=== PATIENT | female | born 1980 | race African-American/Black ===

== ENCOUNTER 2017-06-19 22:44 | Emergency (ER) | payer OTHER, MEDICAID ==
[~2017-06-19] VITALS: Ht 160 cm; Wt 59.0 kg
[2017-06-19 22:50] VITALS: BP 150/89
[2017-06-19 23:13] LABS: BASOPHILS % (AUTO) 1.2 % (0.0-2.0); EOSINOPHILS % (AUTO) 0.6 % (0.0-3.0); HEMATOCRIT 34.2 % (37.0-47.0); HEMOGLOBIN 11.4 G/DL (12.0-16.0); LYMPHOCYTES % (AUTO) 27.5 % (20.0-45.0); MEAN CORPUSCULAR VOLUME 75 FL (80-99); MONOCYTES % (AUTO) 6.9 % (1.0-10.0); NEUTROPHILS % (AUTO) 63.8 % (45.0-75.0); PLATELET COUNT 288 K/UL (150-450); RED BLOOD COUNT 4.58 M/UL (4.20-5.40); WHITE BLOOD COUNT 5.7 K/UL (4.8-10.8)
[2017-06-19] MEDS ORDERED: LORazepam Inj 2mg/ml 1ml IV ONE (23:15)
[2017-06-19 23:25] LABS: ANION GAP 5 mmol/L (5-15); BLOOD UREA NITROGEN 11 mg/dL (7-18); CALCIUM 8.5 MG/DL (8.5-10.1); CARBON DIOXIDE 26 MMOL/L (21-32); CHLORIDE 105 MMOL/L (98-107); CREATININE 1.1 MG/DL (0.55-1.30); POTASSIUM 3.7 MMOL/L (3.5-5.1); SODIUM 136 MMOL/L (136-145)
[2017-06-19 23:30] LABS: ALANINE AMINOTRANSFERASE 24 U/L (12-78); ALBUMIN 3.3 G/DL (3.4-5.0); ALBUMIN/GLOBULIN RATIO 0.8 (1.0-2.7); ALKALINE PHOSPHATASE 72 U/L (46-116); ASPARTATE AMINO TRANSFERASE 18 U/L (15-37); BILIRUBIN,TOTAL 0.2 MG/DL (0.2-1.0)
[2017-06-20] VITALS: BP 138/87
[2017-06-20 00:11] VITALS: BP 138/87
--- NOTE | 2017-06-20 00:18 | Emergency Room Report ---
History of Present Illness General Chief Complaint: Seizure Source: Patient, EMS Present Illness HPI 36-year-old female presents ED for evaluation. Patient is in police custody. Here for long term clearance. Had a witnessed seizure in long term. Last for several seconds. No reported head injury. Upon arrival patient is crying. Not answering questions. [employer] states patient has a history of substance abuse. Unclear whether patient has seizure history. No other aggravating relieving factors. No other associated symptoms Allergies: Coded Allergies: UNABLE TO ASSESS (Unverified , 06/19/17) not answering questions Patient History Past Medical History: none Past Surgical History: none Pertinent Family History: none Social History: Denies: smoking, alcohol use, drug use Last Menstrual Period: unknown Now: No Immunizations: UTD Reviewed Nursing Documentation: PMH: Agreed; PSxH: Agreed Nursing Documentation-PMH Past Medical History Deferred: Pt Cognitively Impaired Review of Systems All Other Systems: limited Physical Exam Vital Signs Date Time Temp Pulse Resp B/P (MAP) Pulse Ox O2 Delivery O2 Flow Rate FiO2 06/19/17 22:45 98.8 110 20 156/90 98 Room Air 98.8 Sp02 EP Interpretation: reviewed, normal General Appearance: no apparent distress, alert, GCS 15, non-toxic Head: normocephalic, atraumatic Eyes: bilateral eye normal inspection, bilateral eye PERRL ENT: hearing grossly normal, normal pharynx, no angioedema, normal voice Neck: full range of motion, supple/symm/no masses Respiratory: chest non-tender, lungs clear, normal breath sounds, speaking full sentences Cardiovascular #1: regular rate, rhythm, no edema Cardiovascular #2: 2+ carotid (R), 2+ carotid (L), 2+ radial (R), 2+ radial (L) , 2+ dorsalis pedis (R), 2+ dorsalis pedis (L) Gastrointestinal: normal bowel sounds, non tender, soft, non-distended, no guarding, no rebound Rectal: deferred Genitourinary: normal inspection, no CVA tenderness Musculoskeletal: back normal, gait/station normal, normal range of motion, non- tender Neurologic: alert, responsive, motor strength/tone normal, sensory intact, other - crying Psychiatric: anxious Reflexes: 3+ bicep (R), 3+ bicep (L), 3+ tricep (R), 3+ tricep (L), 3+ knee (R) , 3+ knee (L) Skin: normal color, no rash, warm/dry, well hydrated Lymphatic: no adenopathy Medical Decision Making Diagnostic Impression: Primary Impression: Medical clearance for incarceration Additional Impression: Seizure ER Course Hospital Course 36-year-old F presents to ED status post seizure.in police custody Differential diagnosis includes- breakthrough seizure, alcohol abuse, noncompliance with medication Clinical course Patient placed on stretcher. Initial history and physical I ordered labs, IV fluids, ativan Labs-electrolytes okay, no leukocytosis, hemoglobin/hematocrit stable. etoh <3. Patient observed for some time in ED. Stable vitals. No seizure activity. Patient initially crying and very anxious proved after Ativan. Patient still not answering questions regarding seizure history. Reviewed EMR. Patient was reportedly here for seizure activity last year however patient left without being seen Patient is stable for long term clearance Diagnosis - seizure, medical clearance for incarceration stable and discharged to police custody. Followup with PMD. Return to ED if symptoms recur or worsen Labs Test 06/19/17 22:55 White Blood Count 5.7 K/UL (4.8-10.8) Red Blood Count 4.58 M/UL (4.20-5.40) Hemoglobin 11.4 G/DL (12.0-16.0) Hematocrit 34.2 % (37.0-47.0) Mean Corpuscular Volume 75 FL (80-99) Mean Corpuscular Hemoglobin 24.9 PG (27.0-31.0) Mean Corpuscular Hemoglobin Concent 33.3 G/DL (32.0-36.0) Red Cell Distribution Width 15.0 % (11.6-14.8) Platelet Count 288 K/UL (150-450) Mean Platelet Volume 6.9 FL (6.5-10.1) Neutrophils (%) (Auto) 63.8 % (45.0-75.0) Lymphocytes (%) (Auto) 27.5 % (20.0-45.0) Monocytes (%) (Auto) 6.9 % (1.0-10.0) Eosinophils (%) (Auto) 0.6 % (0.0-3.0) Basophils (%) (Auto) 1.2 % (0.0-2.0) Sodium Level 136 MMOL/L (136-145) Potassium Level 3.7 MMOL/L (3.5-5.1) Chloride Level 105 MMOL/L (98-107) Carbon Dioxide Level 26 MMOL/L (21-32) Anion Gap 5 mmol/L (5-15) Blood Urea Nitrogen 11 mg/dL (7-18) Creatinine 1.1 MG/DL (0.55-1.30) Estimat Glomerular Filtration Rate > 60 mL/min (>60) Glucose Level 111 MG/DL (74-106) Calcium Level 8.5 MG/DL (8.5-10.1) Total Bilirubin 0.2 MG/DL (0.2-1.0) Aspartate Amino Transf (AST/SGOT) 18 U/L (15-37) Alanine Aminotransferase (ALT/SGPT) 24 U/L (12-78) Alkaline Phosphatase 72 U/L (46-116) Total Protein 7.7 G/DL (6.4-8.2) Albumin 3.3 G/DL (3.4-5.0) Globulin 4.4 g/dL Albumin/Globulin Ratio 0.8 (1.0-2.7) Salicylates Level 1.3 ug/mL (2.8-20) Acetaminophen Level < 2 MCG/ML (10-30) Carbamazepine (Tegretol) Level < 0.5 ug/mL (4.0-12.0) Phenobarbital Level < 1.0 ug/mL (15-40) Serum Alcohol < 3 mg/dL Last Vital Signs Date Time Temp Pulse Resp B/P (MAP) Pulse Ox O2 Delivery O2 Flow Rate FiO2 06/20/17 00:11 98.5 87 15 138/87 98 Room Air 98.5 Status: improved Disposition: D/C TO LAW ENFORCEMENT IN CUST Condition: Stable Departure Forms: [facility] Clearance Patient Instructions: Seizure, Adult Anibal Alicea MD Jun 20, 2017 00:18
--- NOTE | 2017-06-20 14:54 | Cardiology Report ---
APPROVED REPORT EKG Measurement Heart [id number] Sinus tachycardia Otherwise normal ECG
== END 2017-06-20 00:15 | disposition home or self-care (01) ==
LOC: EDBD 22:44 → EMR 22:55
DX: R56.9 Unspecified convulsions (principal)
CPT/HCPCS: 36415; 80053; 80156; 80184; 85025; 93005; 96361; 96374; 99284; G0480; 80329

== ENCOUNTER 2018-08-02 14:36 | Inpatient (IN) | payer MEDICAID, OTHER ==
[~2018-08-02] VITALS: Ht 162.6 cm; Wt 77.6 kg
[2018-08-02 14:40] VITALS: BP 105/70
--- NOTE | 2018-08-02 14:40 | NUR ---
ED Nurse Note: Pt brought in to ER by ambulance from [facility] due to severe back pain 10/10 radiates to posterior neck for last 4 days. pt is moaning and gramicing due to pain but aao x4. pt is bedbound due to pain. skin clean and intact. pt has head surgery and scar is covered with sponge type of dressing on Lt upper head. per pt, it should not be removed by anybody but surgeon. pt has mid line on Lt upper arm.
--- NOTE | 2018-08-02 14:45 | NUR ---
ED Nurse Note: pt reported that she has breast cancer stage 4.
--- NOTE | 2018-08-02 14:59 | Emergency Room Report ---
History of Present Illness General Chief Complaint: Chest Pain Source: Patient, Medical Record Present Illness HPI Patient is a 37-year-old female with prior history of metastatic breast cancer. Patient was noted to have previous been hospitalized in [facility]. 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 Patient had been recently been on high-dose IV narcotics while in the hospital. Patient was discharged yesterday. Patient is noted to have persistent pain since discharge. Patient apparently had been taking large doses of morphine as well as Dilaudid.Patient had reported having increased pain in her mid back. 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 She was noted to have prior right- sided weakness from brain tumor. Patient had prior history of invasive ductal carcinoma. Patient was sent in by Dr. Ordaz. Patient had previously been on Keppra for seizure prophylaxis Allergies: Coded Allergies: No Known Allergies (Unverified , 08/02/18) Patient History Past Medical History: see triage record Now: No Reviewed Nursing Documentation: PMH: Agreed; PSxH: Agreed Nursing Documentation-PMH Past Medical History: No History, Except For Hx Cancer: Yes - Breast, Intracranial Abcess, Granuloma History Of Psychiatric Problem: Yes - Bipolar, Anxiety Review of Systems All Other Systems: negative except mentioned in HPI Physical Exam Vital Signs Date Time Temp Pulse Resp B/P (MAP) Pulse Ox O2 Delivery O2 Flow Rate FiO2 08/02/18 14:38 99.1 94 20 98/70 (79) 96 Room Air General Appearance: alert, GCS 15, Chronically Ill Head: other - craniotomy site C/D/I ENT: hearing grossly normal Neck: limited range of motion Respiratory: chest non-tender, lungs clear Cardiovascular #1: normal inspection, regular rate, rhythm Gastrointestinal: normal inspection, non tender Genitourinary: normal inspection Neurologic: alert, oriented x3, responsive, motor weakness - right upper extremity 4/5, some tremor Medical Decision Making Diagnostic Impression: Primary Impression: Intractable back pain Additional Impression: Hx of breast cancer ER Course Patient presented for upper back pain. Differential diagnosis include was not limited to metastatic lesion to her back, pulmonary embolism, myocardial infarction, opiate withdrawal among others. Because of complexity of patient's case laboratory testing and imaging studies were ordered. Patient was noted to have some baseline right-sided weakness. Patient reports having taken her Keppra. Per patient report patient was on high-dose pain medications while at [facility].I suspect some of this patient's pain is related to medication withdrawal. Patient states she had prolonged hospitalization for several months. Patient's insurance company was unable to arrange a time of the transfer. Dr. Tawana Davila was contacted for inpatient management Labs Test 08/02/18 15:00 White Blood Count 6.0 K/UL (4.8-10.8) Red Blood Count 3.98 M/UL (4.20-5.40) Hemoglobin 10.6 G/DL (12.0-16.0) Hematocrit 32.6 % (37.0-47.0) Mean Corpuscular Volume 82 FL (80-99) Mean Corpuscular Hemoglobin 26.5 PG (27.0-31.0) Mean Corpuscular Hemoglobin Concent 32.4 G/DL (32.0-36.0) Red Cell Distribution Width 15.0 % (11.6-14.8) Platelet Count 351 K/UL (150-450) Mean Platelet Volume 4.9 FL (6.5-10.1) Neutrophils (%) (Auto) 60.2 % (45.0-75.0) Lymphocytes (%) (Auto) 27.5 % (20.0-45.0) Monocytes (%) (Auto) 9.2 % (1.0-10.0) Eosinophils (%) (Auto) 1.2 % (0.0-3.0) Basophils (%) (Auto) 2.0 % (0.0-2.0) D-Dimer 1.83 mg/L FEU (0.00-0.49) Urine HCG, Qualitative Negative (NEGATIVE) Sodium Level 138 MMOL/L (136-145) Potassium Level 4.1 MMOL/L (3.5-5.1) Chloride Level 103 MMOL/L (98-107) Carbon Dioxide Level 27 MMOL/L (21-32) Anion Gap 8 mmol/L (5-15) Blood Urea Nitrogen 9 mg/dL (7-18) Creatinine 0.8 MG/DL (0.55-1.30) Estimat Glomerular Filtration Rate > 60 mL/min (>60) Glucose Level 106 MG/DL (74-106) Calcium Level 8.9 MG/DL (8.5-10.1) Total Bilirubin 0.2 MG/DL (0.2-1.0) Aspartate Amino Transf (AST/SGOT) 21 U/L (15-37) Alanine Aminotransferase (ALT/SGPT) 34 U/L (12-78) Alkaline Phosphatase 166 U/L (46-116) Total Creatine Kinase 61 U/L (26-308) Creatine Kinase MB < 0.5 NG/ML (0.0-3.6) Creatine Kinase MB Relative Index 0.8 Troponin I 0.000 ng/mL (0.000-0.056) Pro-B-Type Natriuretic Peptide 113 pg/mL (0-125) Total Protein 8.0 G/DL (6.4-8.2) Albumin 3.1 G/DL (3.4-5.0) Globulin 4.9 g/dL Albumin/Globulin Ratio 0.6 (1.0-2.7) EKG Diagnostic Results Rate: normal Rhythm: NSR ST Segments: no acute changes Last Vital Signs Date Time Temp Pulse Resp B/P (MAP) Pulse Ox O2 Delivery O2 Flow Rate FiO2 08/02/18 14:38 99.1 94 20 98/70 (79) 96 Room Air Status: improved Disposition: HOME, SELF-CARE Condition: Stable Roby Garcia MD August 02, 2018 14:59
[2018-08-02] MEDS ORDERED: Morphine Sulfate 4mg/ml Inj (IV USE ONLY) IVP ONE (15:00)
[2018-08-02] MEDS ORDERED: DiphenhydrAMINE 50mg/ml Inj IVP ONE (15:00)
--- NOTE | 2018-08-02 15:06 | NUR ---
ED Nurse Note: unable to withdraw blood from Mid-line. used betterfly but mid line is able to flush with medications. per pt, it has been unable to use since at the [facility].
--- NOTE | 2018-08-02 15:20 | NUR ---
ED Nurse Note: x-ray done at bedside.
[2018-08-02 15:39] LABS: EOSINOPHILS % (AUTO) 1.2 % (0.0-3.0); HEMATOCRIT 32.6 % (37.0-47.0); HEMOGLOBIN 10.6 G/DL (12.0-16.0); LYMPHOCYTES % (AUTO) 27.5 % (20.0-45.0); MEAN CORPUSCULAR VOLUME 82 FL (80-99); MONOCYTES % (AUTO) 9.2 % (1.0-10.0); NEUTROPHILS % (AUTO) 60.2 % (45.0-75.0); PLATELET COUNT 351 K/UL (150-450); RED BLOOD COUNT 3.98 M/UL (4.20-5.40)
[2018-08-02 16:01] LABS: ANION GAP 8 mmol/L (5-15); BLOOD UREA NITROGEN 9 mg/dL (7-18); CALCIUM 8.9 MG/DL (8.5-10.1); CARBON DIOXIDE 27 MMOL/L (21-32); CHLORIDE 103 MMOL/L (98-107); CREATININE 0.8 MG/DL (0.55-1.30); POTASSIUM 4.1 MMOL/L (3.5-5.1); SODIUM 138 MMOL/L (136-145)
[2018-08-02 16:15] LABS: ALANINE AMINOTRANSFERASE 34 U/L (12-78); ALBUMIN 3.1 G/DL (3.4-5.0); ALBUMIN/GLOBULIN RATIO 0.6 (1.0-2.7); ALKALINE PHOSPHATASE 166 U/L (46-116); ASPARTATE AMINO TRANSFERASE 21 U/L (15-37); BILIRUBIN,TOTAL 0.2 MG/DL (0.2-1.0); CKMB < 0.5 NG/ML (0.0-3.6); CREATINE KINASE 61 U/L (26-308)
--- NOTE | 2018-08-02 16:38 | NUR ---
ED Nurse Note: per ERMD, pt is ok to eat and drink. pt was provided with sandwich and juice.
[2018-08-02 16:40] VITALS: BP 112/79
--- NOTE | 2018-08-02 16:58 | Diagnostic Imaging Report ---
Indication: Chest pain, shortness of breath Technique: One view of the chest Comparison: none Findings: The heart is upper limits normal in size. There is minimal left basilar atelectasis. The lungs and pleural spaces are clear otherwise. Impression: Minimal left basilar atelectasis. No acute process
[2018-08-02 18:34] VITALS: BP 97/71
--- NOTE | 2018-08-02 18:56 | NUR ---
ED Nurse Note: Attempted to give report. nurse is unavailable. will call back again.
--- NOTE | 2018-08-02 18:56 | NUR ---
ED Nurse Note: pt c/o pain on back 12/13. ERMD made aware.
--- NOTE | 2018-08-02 19:20 | NUR ---
HAND-OFF: Report given to TIMA Duncan. unable to give report due to nurse unavailable in [facility] unit at this moment. report needs to be givne and VITALY made aware of pain medication.
[2018-08-02] MEDS ORDERED: Morphine Sulfate 10mg/ml Inj IVP ONE (19:30)
[2018-08-02] MEDS ORDERED: MILK OF MA400 MG/51 ORAL ×2 (20:01→22:52)
[2018-08-02] MEDS ORDERED: POLYETHYLENE GL17 GM ORAL (20:01)
[2018-08-02] MEDS ORDERED: FLAGYL500 MG ORAL (20:01)
[2018-08-02] MEDS ORDERED: LOVENOX10 M4 SUBQ ×2 (20:01→22:52)
[2018-08-02] MEDS ORDERED: NYSTATIN100000 UN1 ORAL (20:01)
[2018-08-02] MEDS ORDERED: FENTANYL1 EACH TDERMAL (20:01)
[2018-08-02] MEDS ORDERED: KEPPRA500 M4 ORAL ×2 (20:01→22:52)
[2018-08-02] MEDS ORDERED: LORAZEPAM0.5 MG ORAL (20:01)
[2018-08-02] MEDS ORDERED: CHOLECALCIFEROL1 G1 MC (20:01)
[2018-08-02] MEDS ORDERED: BISACODYL5 MG ORAL (20:01)
[2018-08-02] MEDS ORDERED: KLONOPIN0.5 MG ORAL (20:01)
[2018-08-02] MEDS ORDERED: VANCOMYCIN1 GM IV (20:01)
[2018-08-02] MEDS ORDERED: ZOLPIDEM TARTRAT5 MG ORAL (20:01)
--- NOTE | 2018-08-02 20:30 | NUR ---
NURSE NOTES: ADMITTED 37 YEAR OLD FEMALE TO ROOM 420 BED 2 VIA GURNEY FROM EMERGENCY DEPARTMENT WITH DIAGNOSIS INTRACTABLE BACK PAIN/METASTATIC RIGHT BREAST CANCER, UNDER THE CARE OF DR. ALBRIGHT. ALERT/ORIENTED X4, ABLE TO EFFECTIVELY VERBALIZE NEEDS, MEDICATED IN ER WITH MORPHINE SULFATE 8MG AT 1931 INTRAVENOUSLY, PATIENT WITH CURRENT COMPLAINT OF PAIN 10/10 "ALL OVER". MIDLINE CATHETER TO LEFT UPPER EXTREMITY, PER PATIENT, DRESSING CHANGED 08/01/18, PLACED AT [facility] ON 07/25/18, UNABLE TO DRAW BLOOD, REFUSED PERIPHERAL LINE. ABDOMEN SOFT/NON DISTENDED, AUDIBLE BOWEL SOUNDS, NO N/V/D REPORTED. PATIENT HAD HEAD SURGERY AT [facility] 2 MONTHS AGO, NOTED WITH SPONGE PATCH ON MID SCALP. NOTED WITH RIGHT SIDE WEAKNESS, ENCOURAGED PATIENT TO UTILIZE CALL LIGHT FOR ASSISTANCE, VERBALIZED UNDERSTANDING. SIDE RAILS UP X3/BED IN LOWEST POSITION FOR SAFETY. CALL LIGHT WITHIN REACH. NAD.
[2018-08-02 21:00] VITALS: BP 103/72
--- NOTE | 2018-08-02 21:00 | NUR ---
NURSE NOTES: ON ROUNDS, PATIENT APPEAR TO BE ASLEEP, NO SIGNS AND SYMPTOMS OF DISTRESS.
[2018-08-02] MEDS ORDERED: ANASTROZOLE1 MG PO (21:26)
[2018-08-02] MEDS ORDERED: TRUSOPT10 ML LEFT EYE (21:26)
[2018-08-02] MEDS ORDERED: VITAMIN D1000 UNI1 ORAL (21:26)
[2018-08-02] MEDS ORDERED: ACETAMINOPHEN500 M3 ORAL ×2 (21:26)
[2018-08-02] MEDS ORDERED: BISACODYL10 M1 RC (21:26)
[2018-08-02] MEDS ORDERED: VOLTAREN100 G1 TP (22:52)
[2018-08-02] MEDS ORDERED: METRONIDAZOLE500 MG ORAL (22:52)
[2018-08-02] MEDS ORDERED: MORPHINE 22 MG/1 ML IV (22:52)
[2018-08-02] MEDS ORDERED: FENTANYL1 EAC2 TDERMAL (22:52)
[2018-08-02] MEDS ORDERED: HYDROMORPHO2 MG/1 M5 PO (22:52)
[2018-08-02] MEDS ORDERED: LUPRON DEPOT3.75 M1 IM (22:52)
[2018-08-02] MEDS ORDERED: Zolpidem 5mg tab ORAL PRN (23:30)
[2018-08-02] MEDS ORDERED: Miralax 17gm pkt ORAL PRN (23:30)
[2018-08-02] MEDS ORDERED: metroNIDAZOLE 500mg tab ORAL PRN (23:30)
[2018-08-02] MEDS ORDERED: Acetaminophen 500mg (ES) tab ORAL PRN (23:30)
[2018-08-02] MEDS ORDERED: ZOLEDRONIC4 MG/100 M IV (23:46)
[2018-08-02] MEDS ORDERED: PROTONIX40 MG ORAL (23:46)
[2018-08-02] MEDS ORDERED: VANCOMYCIN IV (23:46)
[2018-08-03] VITALS: BP 104/71
[2018-08-03] MEDS ORDERED: Morphine Sulfate 4mg/ml Inj (IV USE ONLY) IVP SCH
[2018-08-03] MEDS ORDERED: Morphine Sulfate 4mg/ml Inj (IV USE ONLY) IVP PRN (00:30)
[2018-08-03] MEDS ORDERED: HYDROmorphone 2mg tab ORAL PRN (00:45)
[2018-08-03] MEDS: clonazePAM 0.5mg tab ORAL SCH ×4 (00:55→17:34)
[2018-08-03] MEDS ORDERED: Acetaminophen 500mg (ES) tab ORAL SCH (01:00)
[2018-08-03] MEDS ORDERED: Acetaminophen 500mg (ES) tab ORAL PRN (01:00)
[2018-08-03] MEDS: HYDROmorphone 2mg tab ORAL PRN ×3 (01:21→08:22)
--- NOTE | 2018-08-03 01:48 | NUR ---
NURSE NOTES: PATIENT AWAKE, CRYING, PAIN 10/10, INFORMED PATIENT THAT DILAUDID 6MG PO WAS AVAILABLE, PATIENT VERBALIZED UNDERSTANDING; PACKAGE OPENED IN ROOM, PATIENT REFUSED MEDICATION ONCE OPENED, CHARGE NURSE NOTIFIED, MEDICATION "UNDONE AND WASTED" - CHARGE NURSE ADM. MORPHINE SULFATE 4MG IV VIA MID LINE CATHETER, FLUSHED FOR PATENCY. PATIENT INSISTING ON 8 MG IV MS, TELEPHONE CALL PLACED TO DR. MONTES/PAIN MANAGEMENT, LEFT MESSAGE ON EMERGENCY VOICE MAIL, WILL AWAIT RETURN CALL. NAD. PATIENT MADE AWARE.
--- NOTE | 2018-08-03 02:15 | NUR ---
NURSE NOTES: FOLLOW UP CALL PLACED TO DR. MONTES REGARDING PAIN INTERVENTION , PATIENT WOULD BENEFIT FROM USABILITY ENGINEER, LEFT MESSAGE ON EMERGENCY LINE, WILL AWAIT RETURN CALL.
[2018-08-03 04:00] VITALS: BP 115/79
[2018-08-03] MEDS: Morphine Sulfate 4mg/ml Inj (IV USE ONLY) IVP PRN ×4 (04:27→09:42)
--- NOTE | 2018-08-03 05:00 | NUR ---
NURSE NOTES: LOBO CISNEROS,BROOM MACHINE OPERATOR, GAVE ORDER TO GIVE ONE TIME DOSE OF MORPHINE SULFATE 2MG NOW; PER LOBO, DOSE NOT TO INTERFERE WITH MS 6MG PRN DOSE, CHARGE NURSE MADE AWARE.
[2018-08-03] MEDS ORDERED: Morphine Sulfate 2mg/ml Inj(IV/IM USE ONLY) IVP ONE (05:15)
[2018-08-03] MEDS ORDERED: Vancomycin 1 GM in D5W 275 ML IVPB SCH (06:00)
[2018-08-03] MEDS ORDERED: Vancomycin 1gm vial IVPB SCH (06:00)
--- NOTE | 2018-08-03 06:42 | Consultation ---
History of Present Illness General Date patient seen: August 02, 2018 Chief Complaint: Brain Mets Referring physician: Dr. Davila Present Illness HPI Shahana Lora is a 37-year-old female with prior history of metastatic breast cancer with bony and parenchymal brain metastases. 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 She was discharged yesterday but had been recently been on high-dose IV narcotics and experienced uncontrolled persistent pain since discharge.She had been requiring both high doses of morphine and dilaudid with a transition to a Fentanyl patch 75-100mcg for her pain. 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 Additionally, she has prior right-sided weakness from brain tumor. Neurology has also been consulted to manage and assess her neurological deficits and cerebral edema related to her most recent surgical procedure. Allergies: Coded Allergies: No Known Allergies (Unverified , 08/02/18) Medication History Scheduled Acetaminophen* (Acetaminophen Extra Strength*), 500 MG ORAL Q4HR, (Reported) Anastrozole* (Arimidex*), 1 MG PO DAILY, (Reported) Bisacodyl (Bisacodyl), 10 MG RC DAILY, (Reported) Bisacodyl* (Dulcolax*), 20 MG ORAL ONCE, (Reported) Cholecalciferol (Vitamin D3)* (Vitamin D*), 2,000 UNITS ORAL DAILY, (Reported) Clonazepam* (Klonopin*), 0.5 MG ORAL Q6H, (Reported) Dorzolamide Hcl* (Trusopt*), 1 DROP LEFT EYE BID, (Reported) Enoxaparin* (Lovenox*), 40 MG SUBQ DAILY, (Reported) Enoxaparin* (Lovenox*), 40 MG SUBQ DAILY, (Reported) Fentanyl 25MCG Patch* (Fentanyl 25MCG Patch*), 1 PATCH TDERMAL EVERY 72 HOURS, ( Reported) Fentanyl 75MCG Patch* (Fentanyl 75MCG Patch*), 1 PATCH TDERMAL EVERY 72 HOURS, ( Reported) Hydromorphone Hcl/Pf (Hydromorphone 2 Mg/Ml Syringe*), 2 MG PO EVERY 2 HOURS, ( Reported) Leuprolide Acetate (Lupron Depot), 3.75 MG IM QMONTH, (Reported) Levetiracetam (Keppra), 500 MG ORAL EVERY 12 HOURS, (Reported) Levetiracetam (Keppra), 500 MG ORAL EVERY 12 HOURS, (Reported) Lorazepam* (Lorazepam*), 0.5 MG ORAL THREE TIMES A DAY, (Reported) Magnesium Hydroxide* (Milk Of Magnesia*), 30 ML ORAL DAILY, (Reported) Magnesium Hydroxide* (Milk Of Magnesia*), 30 ML ORAL BEDTIME, (Reported) Metronidazole* (Flagyl*), 500 MG ORAL EVERY 8 HOURS, (Reported) Morphine Sulfate* (Morphine Sulfate*), 4 MG IV EVERY 2 HOURS, (Reported) Nystatin* (Nystatin*), 5 ML ORAL FOUR TIMES A DAY, (Reported) Pantoprazole* (Protonix*), 20 MG ORAL DAILY, (Reported) Vancomycin HCl (Vancomycin HCl), 1.25 GM IV Q8HR, (Reported) Zoledronic Acid/Mannitol&Water (Zoledronic Acid 4 mg/100 ml), 4 MG IV MONTHLY, ( Reported) [Vancomycin], IV EVERY 8 HOURS, (Reported) Scheduled PRN Acetaminophen* (Acetaminophen Extra Strength*), 500 MG ORAL Q6H PRN for Mild Pain (Pain Scale 1-3), (Reported) Metronidazole* (Flagyl*), 500 MG ORAL EVERY 8 HOURS PRN for BRAIN INFECTION, ( Reported) Polyethylene Glycol 3350* (Polyethylene Glycol 3350*), 17 GM ORAL BEDTIME PRN for Constipation, (Reported) Zolpidem Tartrate* (Zolpidem Tartrate*), 5 MG ORAL BEDTIME PRN for Insomnia, ( Reported) Miscellaneous Medications Cholecalciferol (Vitamin D3) (Cholecalciferol), 1 GM MC, (Reported) Diclofenac Sodium (Voltaren), 100 GM TP, (Reported) Vancomycin Hcl (Vancomycin), 1 GM IV, (Reported) Patient History Healthcare decision maker KILO HERNÁNDEZ JENNIFER R Resuscitation status Do Not Resuscitate Advanced Directive on File N/A Review of Systems Constitutional: Reports: see HPI, malaise, weakness Eye: Reports: no symptoms; Denies: see HPI, eye pain, blurred vision, tearing, double vision, nose pain, nose congestion, acuity changes, discharge, other ENT: Denies: no symptoms, see HPI, ear pain, ear discharge, nose pain, nose congestion, throat pain, throat swelling, mouth pain, hearing loss, nasal discharge, other Respiratory: Denies: no symptoms, see HPI, cough, orthopnea, shortness of breath, stridor, wheezing, DOMÍNGUEZ, sputum, other Cardiovascular: Denies: no symptoms, see HPI, chest pain, edema, palpitations, syncope, PND, other Gastrointestinal: Denies: no symptoms, see HPI, abdominal pain, constipation, diarrhea, nausea, vomiting, melena, hematemesis, other Genitourinary: Denies: no symptoms, see HPI, discharge, dysuria, frequency, hematuria, pain, retention, incontinence, urgency, vag bleed/dc, other Musculoskeletal: Reports: joint pain Skin: Denies: no symptoms, see HPI, rash, change in color, change in hair/nails , dryness, lesions, other Psychiatric: Reports: depressed feelings Neurological: Reports: headache, focal weakness Endocrine: Denies: no symptoms, see HPI, excessive sweating, flushing, intolerance to temperature, increased thirst, increased urine, unexplained weight loss, other Hematologic/Lymphatic: Denies: no symptoms, see HPI, anemia, blood clots, easy bleeding, easy bruising, swollen glands, diathesis, other Physical Exam General Appearance: WD/WN, no apparent distress, alert, moderate distress, alert oriented x3 Lines, tubes and drains: peripheral HEENT: normocephalic - with right/midline craniotomy incision on top / parietal portion of head, anicteric, mucous membranes moist, PERRL, EOMI, pharynx normal, supple, no JVD Neck: normal alignment, supple, normal inspection Respiratory/Chest: normal breath sounds, no respiratory distress, no accessory muscle use Cardiovascular/Chest: normal rate, regular rhythm, no JVD Extremities: normal range of motion, non-tender, normal inspection, no calf tenderness, normal capillary refill, no edema, no cyanosis Skin Exam: normal pigmentation, warm/dry Neurologic: abnormal gait, alert, oriented x 3, responsive, abnormal CN, motor weakness, sensory deficit Musculoskeletal: normal muscle bulk, no effusion Physical Exam Narrative Young woman with pre-existing right sided deficit of lower face and arm. Left eye CN6 palsy , Right eye movements normal - deficits secondary to CN6 involvement of prior tumor resection Patient is ambulatory but reports unsteadiness upon ambulation. Last 24 Hour Vital Signs Date Time Temp Pulse Resp B/P (MAP) Pulse Ox O2 Delivery O2 Flow Rate FiO2 08/03/18 04:00 99.4 96 18 115/79 (91) 97 08/03/18 03:42 99.5 08/03/18 00:00 100.3 94 18 104/71 (82) 98 08/02/18 22:30 Room Air 08/02/18 21:00 99.5 94 18 103/72 (82) 99 08/02/18 20:08 93 21 97/63 98 Room Air 08/02/18 20:05 98.0 08/02/18 18:34 98.0 91 21 97/71 100 Room Air 08/02/18 16:40 98.7 78 17 112/79 98 Room Air 08/02/18 15:43 99.1 08/02/18 14:40 99.1 88 15 105/70 96 Room Air 08/02/18 14:40 97 15 Room Air 08/02/18 14:38 99.1 94 20 98/70 (79) 96 Room Air Intake and Output 08/02/18 08/03/18 18:59 06:59 Intake Total 50 ml 120 ml Output Total 600 ml Balance 50 ml -480 ml Intake Oral 50 ml 120 ml Output Urine Total 600 ml # Voids 1 3 Laboratory Tests Test 08/02/18 15:00 White Blood Count 6.0 K/UL (4.8-10.8) Red Blood Count 3.98 M/UL (4.20-5.40) L Hemoglobin 10.6 G/DL (12.0-16.0) L Hematocrit 32.6 % (37.0-47.0) L Mean Corpuscular Volume 82 FL (80-99) Mean Corpuscular Hemoglobin 26.5 PG (27.0-31.0) L Mean Corpuscular Hemoglobin Concent 32.4 G/DL (32.0-36.0) Red Cell Distribution Width 15.0 % (11.6-14.8) H Platelet Count 351 K/UL (150-450) Mean Platelet Volume 4.9 FL (6.5-10.1) L Neutrophils (%) (Auto) 60.2 % (45.0-75.0) Lymphocytes (%) (Auto) 27.5 % (20.0-45.0) Monocytes (%) (Auto) 9.2 % (1.0-10.0) Eosinophils (%) (Auto) 1.2 % (0.0-3.0) Basophils (%) (Auto) 2.0 % (0.0-2.0) D-Dimer 1.83 mg/L FEU (0.00-0.49) H Urine HCG, Qualitative Negative (NEGATIVE) Sodium Level 138 MMOL/L (136-145) Potassium Level 4.1 MMOL/L (3.5-5.1) Chloride Level 103 MMOL/L (98-107) Carbon Dioxide Level 27 MMOL/L (21-32) Anion Gap 8 mmol/L (5-15) Blood Urea Nitrogen 9 mg/dL (7-18) Creatinine 0.8 MG/DL (0.55-1.30) Estimat Glomerular Filtration Rate > 60 mL/min (>60) Glucose Level 106 MG/DL (74-106) Calcium Level 8.9 MG/DL (8.5-10.1) Total Bilirubin 0.2 MG/DL (0.2-1.0) Aspartate Amino Transf (AST/SGOT) 21 U/L (15-37) Alanine Aminotransferase (ALT/SGPT) 34 U/L (12-78) Alkaline Phosphatase 166 U/L (46-116) H Total Creatine Kinase 61 U/L (26-308) Creatine Kinase MB < 0.5 NG/ML (0.0-3.6) Creatine Kinase MB Relative Index 0.8 Troponin I 0.000 ng/mL (0.000-0.056) Pro-B-Type Natriuretic Peptide 113 pg/mL (0-125) Total Protein 8.0 G/DL (6.4-8.2) Albumin 3.1 G/DL (3.4-5.0) L Globulin 4.9 g/dL Albumin/Globulin Ratio 0.6 (1.0-2.7) L Height (Feet): 5 Height (Inches): 4.00 Weight (Pounds): 158 Medications Current Medications Medications (Trade) Dose Ordered Sig/Rahul Route PRN Reason Start Time Stop Time Status Last Admin Dose Admin Acetaminophen (Tylenol) 500 mg Q4HR PRN ORAL TEMPERATURE GREATER THAN 100.4 08/03/18 01:00 09/02/18 00:59 Acetaminophen (Tylenol) 500 mg Q6H PRN ORAL Mild Pain (Pain Scale 1-3) 08/02/18 23:30 09/01/18 23:29 Anastrozole (Arimidex) 1 mg DAILY ORAL 08/03/18 09:00 09/02/18 08:59 Bisacodyl (Dulcolax) 10 mg DAILY RECTAL 08/03/18 09:00 09/02/18 08:59 Bisacodyl (Dulcolax) 15 mg DAILY ORAL 08/03/18 09:00 09/02/18 08:59 Clonazepam (KlonoPIN) 0.5 mg Q6H ORAL 08/03/18 00:00 08/10/18 00:00 08/03/18 06:11 Dorzolamide HCl (Trusopt) 1 drop BID LEFT EYE 08/03/18 09:00 09/02/18 08:59 Enoxaparin Sodium (Lovenox) 40 mg DAILY SUBQ 08/03/18 09:00 09/02/18 08:59 Fentanyl (Duragesic) 1 patch EVERY 72 HOURS TDERMAL 08/02/18 23:30 08/09/18 23:29 UNV Hydromorphone HCl (Dilaudid) 6 mg Q2H PRN ORAL Severe Pain (Pain Scale 7-10) 08/03/18 01:15 08/10/18 00:44 08/03/18 03:12 Levetiracetam (Keppra) 500 mg EVERY 12 HOURS ORAL 08/03/18 09:00 09/02/18 08:59 Lorazepam (Ativan) 0.5 mg THREE TIMES A DAY ORAL 08/03/18 09:00 08/10/18 08:59 Magnesium Hydroxide (Mom) 30 ml BEDTIME ORAL 08/03/18 21:00 09/02/18 20:59 Metronidazole (Flagyl) 500 mg EVERY 8 HOURS PRN ORAL BRAIN INFECTION 08/02/18 23:30 08/09/18 23:29 Morphine Sulfate (Morphine Sulfate) 6 mg Q2H PRN IVP breakthrough pain 08/03/18 02:30 08/10/18 00:29 08/03/18 04:27 Nystatin (Nystatin) 5 ml FOUR TIMES A DAY ORAL 08/03/18 09:00 08/10/18 08:59 Pantoprazole (Protonix) 20 mg DAILY ORAL 08/03/18 09:00 09/02/18 08:59 UNV Polyethylene Glycol (Miralax) 17 gm BEDTIME PRN ORAL Constipation 08/02/18 23:30 09/01/18 23:29 Vancomycin HCl 1 gm/Dextrose 275 ml @ 184 mls/hr Q8H IVPB 08/03/18 06:00 08/08/18 05:59 Vitamin D (Vitamin D) 2,000 intlu DAILY ORAL 08/03/18 09:00 09/02/18 08:59 Zolpidem Tartrate (Ambien) 5 mg BEDTIME PRN ORAL Insomnia 08/02/18 23:30 08/09/18 23:29 Assessment/Plan Problem List: (1) Vision loss, right eye ICD Codes: H54.61 - Unqualified visual loss, right eye, normal vision left eye SNOMED: 11354150 (2) Muscle right arm weakness ICD Codes: M62.81 - Muscle weakness (generalized) SNOMED: 953171997 (3) Seizure prophylaxis Assessment & Plan: Continue home dosage of Keppra at this time. Patient denies ever having had a seizure. ICD Codes: Z29.8 - Encounter for other specified prophylactic measures SNOMED: 763519656, 576937470 (4) Brain metastasis ICD Codes: C79.31 - Secondary malignant neoplasm of brain SNOMED: 76807981 (5) Bony metastasis ICD Codes: C79.51 - Secondary malignant neoplasm of bone SNOMED: 44971637 (6) Metastatic breast cancer ICD Codes: C50.919 - Malignant neoplasm of unspecified site of unspecified female breast SNOMED: 226834472, 755503542 (7) Seizure ICD Codes: R56.9 - Unspecified convulsions SNOMED: 93557748, 13448048, 013762967 (8) Hx of breast cancer ICD Codes: Z85.3 - Personal history of malignant neoplasm of breast SNOMED: 017132356 (9) Intractable back pain Assessment & Plan: Recommend going back to Fentanyl 100mcg patch as previously on with IV dilaudid Q3 Recommend MRI T/L Spine, Right Hip imaging - query kenny mets MRI Brain w/ w/o contrast for Brain Mets, assessment of edema, mets, or abscess recurrence. ICD Codes: M54.9 - Dorsalgia, unspecified SNOMED: 729541979 Assessment/Plan: Was previously on Dexamethasone for cerebral edema following craniotomy recently This should be continued - Recommend 2mg BID Dex if no other orders Check MRI Brain Check T Spine, L Spine , R hip for BONY METS Indira Gonzalez N.P. August 03, 2018 06:42
[2018-08-03 07:11] LABS: BASOPHILS % (AUTO) 1.9 % (0.0-2.0); EOSINOPHILS % (AUTO) 0.9 % (0.0-3.0); HEMATOCRIT 32.2 % (37.0-47.0); HEMOGLOBIN 10.3 G/DL (12.0-16.0); LYMPHOCYTES % (AUTO) 25.5 % (20.0-45.0); MEAN CORPUSCULAR VOLUME 83 FL (80-99); MONOCYTES % (AUTO) 7.2 % (1.0-10.0); NEUTROPHILS % (AUTO) 64.4 % (45.0-75.0); PLATELET COUNT 368 K/UL (150-450); RED BLOOD COUNT 3.88 M/UL (4.20-5.40); RED CELL DISTRIBUTION WIDTH 15.4 % (11.6-14.8); WHITE BLOOD COUNT 4.5 K/UL (4.8-10.8)
--- NOTE | 2018-08-03 07:30 | NUR ---
NURSE NOTES: RN received pt in stable condition, eating breakfast in bed. No acute distress or SOB. Bed in low, locked position, call light within reach. Plan of care is pain management. Will continue to monitor.
--- NOTE | 2018-08-03 07:30 | NUR ---
HAND-OFF: Report given to TIMA GOLDBERG.
[2018-08-03 07:31] LABS: ALANINE AMINOTRANSFERASE 30 U/L (12-78); ALBUMIN 2.6 G/DL (3.4-5.0); ALBUMIN/GLOBULIN RATIO 0.6 (1.0-2.7); ALKALINE PHOSPHATASE 137 U/L (46-116); ANION GAP 8 mmol/L (5-15); ASPARTATE AMINO TRANSFERASE 18 U/L (15-37); BILIRUBIN,TOTAL < 0.1 MG/DL (0.2-1.0); BLOOD UREA NITROGEN 13 mg/dL (7-18); CALCIUM 8.5 MG/DL (8.5-10.1); CARBON DIOXIDE 26 MMOL/L (21-32); CHLORIDE 104 MMOL/L (98-107); CREATININE 0.7 MG/DL (0.55-1.30); POTASSIUM 3.8 MMOL/L (3.5-5.1); SODIUM 138 MMOL/L (136-145)
[2018-08-03 08:00] VITALS: BP 111/72
[2018-08-03] MEDS: Anastrazole 1mg tab ORAL SCH (08:21)
[2018-08-03] MEDS: Vitamin D 1000 IU Tab ORAL SCH (08:21)
[2018-08-03] MEDS: Bisacodyl EC 5mg tab ORAL SCH (08:21)
[2018-08-03] MEDS: Nystatin Susp 500,000 units/5ml ORAL SCH ×4 (08:22→22:16)
[2018-08-03] MEDS: Enoxaparin 40mg Inj SUBQ SCH (08:23)
[2018-08-03] MEDS: LORazepam 0.5mg tab ORAL SCH ×3 (08:28→17:53)
--- NOTE | 2018-08-03 09:00 | NUR ---
NURSE NOTES: RN received pt with mid-line; pt states was placed at [facility] on 07/25, dressing change on 08/01.
--- NOTE | 2018-08-03 09:05 | Consultation ---
History of Present Illness General Date patient seen: August 03, 2018 Chief Complaint: Present Illness Allergies: Coded Allergies: No Known Allergies (Unverified , 08/02/18) Medication History Scheduled Acetaminophen* (Acetaminophen Extra Strength*), 500 MG ORAL Q4HR, (Reported) Anastrozole* (Arimidex*), 1 MG PO DAILY, (Reported) Bisacodyl (Bisacodyl), 10 MG RC DAILY, (Reported) Bisacodyl* (Dulcolax*), 20 MG ORAL ONCE, (Reported) Cholecalciferol (Vitamin D3)* (Vitamin D*), 2,000 UNITS ORAL DAILY, (Reported) Clonazepam* (Klonopin*), 0.5 MG ORAL Q6H, (Reported) Dorzolamide Hcl* (Trusopt*), 1 DROP LEFT EYE BID, (Reported) Enoxaparin* (Lovenox*), 40 MG SUBQ DAILY, (Reported) Enoxaparin* (Lovenox*), 40 MG SUBQ DAILY, (Reported) Fentanyl 25MCG Patch* (Fentanyl 25MCG Patch*), 1 PATCH TDERMAL EVERY 72 HOURS, ( Reported) Fentanyl 75MCG Patch* (Fentanyl 75MCG Patch*), 1 PATCH TDERMAL EVERY 72 HOURS, ( Reported) Hydromorphone Hcl/Pf (Hydromorphone 2 Mg/Ml Syringe*), 2 MG PO EVERY 2 HOURS, ( Reported) Leuprolide Acetate (Lupron Depot), 3.75 MG IM QMONTH, (Reported) Levetiracetam (Keppra), 500 MG ORAL EVERY 12 HOURS, (Reported) Levetiracetam (Keppra), 500 MG ORAL EVERY 12 HOURS, (Reported) Lorazepam* (Lorazepam*), 0.5 MG ORAL THREE TIMES A DAY, (Reported) Magnesium Hydroxide* (Milk Of Magnesia*), 30 ML ORAL DAILY, (Reported) Magnesium Hydroxide* (Milk Of Magnesia*), 30 ML ORAL BEDTIME, (Reported) Metronidazole* (Flagyl*), 500 MG ORAL EVERY 8 HOURS, (Reported) Morphine Sulfate* (Morphine Sulfate*), 4 MG IV EVERY 2 HOURS, (Reported) Nystatin* (Nystatin*), 5 ML ORAL FOUR TIMES A DAY, (Reported) Pantoprazole* (Protonix*), 20 MG ORAL DAILY, (Reported) Zoledronic Acid/Mannitol&Water (Zoledronic Acid 4 mg/100 ml), 4 MG IV MONTHLY, ( Reported) [Vancomycin], IV EVERY 8 HOURS, (Reported) Scheduled PRN Acetaminophen* (Acetaminophen Extra Strength*), 500 MG ORAL Q6H PRN for Mild Pain (Pain Scale 1-3), (Reported) Metronidazole* (Flagyl*), 500 MG ORAL EVERY 8 HOURS PRN for BRAIN INFECTION, ( Reported) Polyethylene Glycol 3350* (Polyethylene Glycol 3350*), 17 GM ORAL BEDTIME PRN for Constipation, (Reported) Zolpidem Tartrate* (Zolpidem Tartrate*), 5 MG ORAL BEDTIME PRN for Insomnia, ( Reported) Miscellaneous Medications Cholecalciferol (Vitamin D3) (Cholecalciferol), 1 GM MC, (Reported) Diclofenac Sodium (Voltaren), 100 GM TP, (Reported) Vancomycin Hcl (Vancomycin), 1 GM IV, (Reported) Patient History Healthcare decision maker EDGAR, CARLOS BOATENG Resuscitation status Do Not Resuscitate Advanced Directive on File N/A Physical Exam Last 24 Hour Vital Signs Date Time Temp Pulse Resp B/P (MAP) Pulse Ox O2 Delivery O2 Flow Rate FiO2 08/03/18 08:00 98.4 100 18 111/72 (85) 98 08/03/18 07:43 99.4 08/03/18 04:57 99.4 08/03/18 04:00 99.4 96 18 115/79 (91) 97 08/03/18 03:42 99.5 08/03/18 00:00 100.3 94 18 104/71 (82) 98 08/02/18 22:30 Room Air 08/02/18 21:00 99.5 94 18 103/72 (82) 99 08/02/18 20:08 93 21 97/63 98 Room Air 08/02/18 20:05 98.0 08/02/18 18:34 98.0 91 21 97/71 100 Room Air 08/02/18 16:40 98.7 78 17 112/79 98 Room Air 08/02/18 15:43 99.1 08/02/18 14:40 99.1 88 15 105/70 96 Room Air 08/02/18 14:40 97 15 Room Air 08/02/18 14:38 99.1 94 20 98/70 (79) 96 Room Air Intake and Output 08/02/18 08/03/18 19:00 07:00 Intake Total 50 ml 120 ml Output Total 600 ml Balance 50 ml -480 ml Intake Oral 50 ml 120 ml Output Urine Total 600 ml # Voids 1 3 Laboratory Tests Test 08/02/18 15:00 08/03/18 06:42 White Blood Count 6.0 K/UL (4.8-10.8) 4.5 K/UL (4.8-10.8) L Red Blood Count 3.98 M/UL (4.20-5.40) L 3.88 M/UL (4.20-5.40) L Hemoglobin 10.6 G/DL (12.0-16.0) L 10.3 G/DL (12.0-16.0) L Hematocrit 32.6 % (37.0-47.0) L 32.2 % (37.0-47.0) L Mean Corpuscular Volume 82 FL (80-99) 83 FL (80-99) Mean Corpuscular Hemoglobin 26.5 PG (27.0-31.0) L 26.4 PG (27.0-31.0) L Mean Corpuscular Hemoglobin Concent 32.4 G/DL (32.0-36.0) 31.9 G/DL (32.0-36.0) L Red Cell Distribution Width 15.0 % (11.6-14.8) H 15.4 % (11.6-14.8) H Platelet Count 351 K/UL (150-450) 368 K/UL (150-450) Mean Platelet Volume 4.9 FL (6.5-10.1) L 5.3 FL (6.5-10.1) L Neutrophils (%) (Auto) 60.2 % (45.0-75.0) 64.4 % (45.0-75.0) Lymphocytes (%) (Auto) 27.5 % (20.0-45.0) 25.5 % (20.0-45.0) Monocytes (%) (Auto) 9.2 % (1.0-10.0) 7.2 % (1.0-10.0) Eosinophils (%) (Auto) 1.2 % (0.0-3.0) 0.9 % (0.0-3.0) Basophils (%) (Auto) 2.0 % (0.0-2.0) 1.9 % (0.0-2.0) D-Dimer 1.83 mg/L FEU (0.00-0.49) H Urine HCG, Qualitative Negative (NEGATIVE) Sodium Level 138 MMOL/L (136-145) 138 MMOL/L (136-145) Potassium Level 4.1 MMOL/L (3.5-5.1) 3.8 MMOL/L (3.5-5.1) Chloride Level 103 MMOL/L (98-107) 104 MMOL/L (98-107) Carbon Dioxide Level 27 MMOL/L (21-32) 26 MMOL/L (21-32) Anion Gap 8 mmol/L (5-15) 8 mmol/L (5-15) Blood Urea Nitrogen 9 mg/dL (7-18) 13 mg/dL (7-18) Creatinine 0.8 MG/DL (0.55-1.30) 0.7 MG/DL (0.55-1.30) Estimat Glomerular Filtration Rate > 60 mL/min (>60) > 60 mL/min (>60) Glucose Level 106 MG/DL (74-106) 127 MG/DL (74-106) H Calcium Level 8.9 MG/DL (8.5-10.1) 8.5 MG/DL (8.5-10.1) Total Bilirubin 0.2 MG/DL (0.2-1.0) < 0.1 MG/DL (0.2-1.0) L Aspartate Amino Transf (AST/SGOT) 21 U/L (15-37) 18 U/L (15-37) Alanine Aminotransferase (ALT/SGPT) 34 U/L (12-78) 30 U/L (12-78) Alkaline Phosphatase 166 U/L (46-116) H 137 U/L (46-116) H Total Creatine Kinase 61 U/L (26-308) Creatine Kinase MB < 0.5 NG/ML (0.0-3.6) Creatine Kinase MB Relative Index 0.8 Troponin I 0.000 ng/mL (0.000-0.056) Pro-B-Type Natriuretic Peptide 113 pg/mL (0-125) Total Protein 8.0 G/DL (6.4-8.2) 7.0 G/DL (6.4-8.2) Albumin 3.1 G/DL (3.4-5.0) L 2.6 G/DL (3.4-5.0) L Globulin 4.9 g/dL 4.4 g/dL Albumin/Globulin Ratio 0.6 (1.0-2.7) L 0.6 (1.0-2.7) L Microbiology Date/Time Source Procedure Growth Status 08/02/18 19:00 Rectum Received Height (Feet): 5 Height (Inches): 4.00 Weight (Pounds): 158 Medications Current Medications Medications (Trade) Dose Ordered Sig/Rahul Route PRN Reason Start Time Stop Time Status Last Admin Dose Admin Acetaminophen (Tylenol) 500 mg Q4HR PRN ORAL TEMPERATURE GREATER THAN 100.4 08/03/18 01:00 09/02/18 00:59 Acetaminophen (Tylenol) 500 mg Q6H PRN ORAL Mild Pain (Pain Scale 1-3) 08/02/18 23:30 09/01/18 23:29 Anastrozole (Arimidex) 1 mg DAILY ORAL 08/03/18 09:00 09/02/18 08:59 08/03/18 08:21 Bisacodyl (Dulcolax) 10 mg DAILY RECTAL 08/03/18 09:00 09/02/18 08:59 Bisacodyl (Dulcolax) 15 mg DAILY ORAL 08/03/18 09:00 09/02/18 08:59 08/03/18 08:21 Clonazepam (KlonoPIN) 0.5 mg Q6H ORAL 08/03/18 00:00 08/10/18 00:00 08/03/18 06:11 Dorzolamide HCl (Trusopt) 1 drop BID LEFT EYE 08/03/18 09:00 09/02/18 08:59 Enoxaparin Sodium (Lovenox) 40 mg DAILY SUBQ 08/03/18 09:00 09/02/18 08:59 08/03/18 08:23 Fentanyl (Duragesic) 1 patch EVERY 72 HOURS TDERMAL 08/02/18 23:30 08/09/18 23:29 UNV Hydromorphone HCl (Dilaudid) 6 mg Q2H PRN ORAL Severe Pain (Pain Scale 7-10) 08/03/18 01:15 08/10/18 00:44 08/03/18 08:22 Levetiracetam (Keppra) 500 mg EVERY 12 HOURS ORAL 08/03/18 09:00 09/02/18 08:59 08/03/18 08:22 Lorazepam (Ativan) 0.5 mg THREE TIMES A DAY ORAL 08/03/18 09:00 08/10/18 08:59 Magnesium Hydroxide (Mom) 30 ml BEDTIME ORAL 08/03/18 21:00 09/02/18 20:59 Metronidazole (Flagyl) 500 mg Q8HR ORAL 08/03/18 14:00 08/15/18 13:59 Morphine Sulfate (Morphine Sulfate) 6 mg Q2H PRN IVP breakthrough pain 08/03/18 02:30 08/10/18 00:29 08/03/18 07:13 Nystatin (Nystatin) 5 ml FOUR TIMES A DAY ORAL 08/03/18 09:00 08/10/18 08:59 08/03/18 08:22 Pantoprazole (Protonix) 20 mg DAILY ORAL 08/03/18 09:00 09/02/18 08:59 UNV Polyethylene Glycol (Miralax) 17 gm BEDTIME PRN ORAL Constipation 08/02/18 23:30 09/01/18 23:29 Vancomycin HCl 1 gm/Dextrose 275 ml @ 184 mls/hr Q8H IVPB 08/03/18 06:00 08/08/18 05:59 08/03/18 06:40 Vitamin D (Vitamin D) 2,000 intlu DAILY ORAL 08/03/18 09:00 09/02/18 08:59 08/03/18 08:21 Zolpidem Tartrate (Ambien) 5 mg BEDTIME PRN ORAL Insomnia 08/02/18 23:30 08/09/18 23:29 Assessment/Plan Assessment/Plan: (1) Metastatic breast cancer to bone (2) Intractable pain Seen dictated Ernesto Avila August 03, 2018 09:05
[2018-08-03] MEDS: Dorzolamide 2% 10ml Btl LEFT EYE SCH ×2 (09:40→17:35)
[2018-08-03] MEDS ORDERED: Naloxone 0.4mg/ml Inj IVP PRN (09:45)
[2018-08-03] MEDS: Lyrica 75mg cap ORAL SCH ×3 (09:45→17:34)
--- NOTE | 2018-08-03 09:57 | NUR ---
NURSE NOTES: RN administered Morphine per order / before order change. Pt pain managed. RN held Lyrica 9:45 AM dose. RN held Dilauded 9:45 AM dose. Will continue new prescriptions as ordered.
[2018-08-03 12:00] VITALS: BP 105/71
--- NOTE | 2018-08-03 12:07 | NUR ---
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 METASTIC BREAST CANCER VS: BP 97/63, P 94, T 99.1, RR 21, SpO2 96 WBC 4.5, RBC 3.88, H&H 10.3/32.2 IS:KLONOPIN 1mg MORPHINE SULFATE 2mg VANCOMYCIN 275ml IVPB ADMITTED TO MED/SURG DCP:RETURN TO [facility] DCP: RETURN TO [facility]
--- NOTE | 2018-08-03 12:28 | Consultation ---
History of Present Illness General Date patient seen: August 03, 2018 Chief Complaint: Chest Pain Present Illness Allergies: Coded Allergies: No Known Allergies (Unverified , 08/02/18) Medication History Scheduled Acetaminophen* (Acetaminophen Extra Strength*), 500 MG ORAL Q4HR, (Reported) Anastrozole* (Arimidex*), 1 MG PO DAILY, (Reported) Bisacodyl (Bisacodyl), 10 MG RC DAILY, (Reported) Bisacodyl* (Dulcolax*), 20 MG ORAL ONCE, (Reported) Cholecalciferol (Vitamin D3)* (Vitamin D*), 2,000 UNITS ORAL DAILY, (Reported) Clonazepam* (Klonopin*), 0.5 MG ORAL Q6H, (Reported) Dorzolamide Hcl* (Trusopt*), 1 DROP LEFT EYE BID, (Reported) Enoxaparin* (Lovenox*), 40 MG SUBQ DAILY, (Reported) Enoxaparin* (Lovenox*), 40 MG SUBQ DAILY, (Reported) Fentanyl 25MCG Patch* (Fentanyl 25MCG Patch*), 1 PATCH TDERMAL EVERY 72 HOURS, ( Reported) Fentanyl 75MCG Patch* (Fentanyl 75MCG Patch*), 1 PATCH TDERMAL EVERY 72 HOURS, ( Reported) Hydromorphone Hcl/Pf (Hydromorphone 2 Mg/Ml Syringe*), 2 MG PO EVERY 2 HOURS, ( Reported) Leuprolide Acetate (Lupron Depot), 3.75 MG IM QMONTH, (Reported) Levetiracetam (Keppra), 500 MG ORAL EVERY 12 HOURS, (Reported) Levetiracetam (Keppra), 500 MG ORAL EVERY 12 HOURS, (Reported) Lorazepam* (Lorazepam*), 0.5 MG ORAL THREE TIMES A DAY, (Reported) Magnesium Hydroxide* (Milk Of Magnesia*), 30 ML ORAL DAILY, (Reported) Magnesium Hydroxide* (Milk Of Magnesia*), 30 ML ORAL BEDTIME, (Reported) Metronidazole* (Flagyl*), 500 MG ORAL EVERY 8 HOURS, (Reported) Morphine Sulfate* (Morphine Sulfate*), 4 MG IV EVERY 2 HOURS, (Reported) Nystatin* (Nystatin*), 5 ML ORAL FOUR TIMES A DAY, (Reported) Pantoprazole* (Protonix*), 20 MG ORAL DAILY, (Reported) Zoledronic Acid/Mannitol&Water (Zoledronic Acid 4 mg/100 ml), 4 MG IV MONTHLY, ( Reported) [Vancomycin], IV EVERY 8 HOURS, (Reported) Scheduled PRN Acetaminophen* (Acetaminophen Extra Strength*), 500 MG ORAL Q6H PRN for Mild Pain (Pain Scale 1-3), (Reported) Metronidazole* (Flagyl*), 500 MG ORAL EVERY 8 HOURS PRN for BRAIN INFECTION, ( Reported) Polyethylene Glycol 3350* (Polyethylene Glycol 3350*), 17 GM ORAL BEDTIME PRN for Constipation, (Reported) Zolpidem Tartrate* (Zolpidem Tartrate*), 5 MG ORAL BEDTIME PRN for Insomnia, ( Reported) Miscellaneous Medications Cholecalciferol (Vitamin D3) (Cholecalciferol), 1 GM MC, (Reported) Diclofenac Sodium (Voltaren), 100 GM TP, (Reported) Vancomycin Hcl (Vancomycin), 1 GM IV, (Reported) Patient History Healthcare decision maker EDGAR, CARLOS BOATENG Resuscitation status Do Not Resuscitate Advanced Directive on File N/A Physical Exam Last 24 Hour Vital Signs Date Time Temp Pulse Resp B/P (MAP) Pulse Ox O2 Delivery O2 Flow Rate FiO2 08/03/18 09:00 Room Air 08/03/18 08:52 99.4 08/03/18 08:52 99.4 08/03/18 08:00 98.4 100 18 111/72 (85) 98 08/03/18 04:57 99.4 08/03/18 04:00 99.4 96 18 115/79 (91) 97 08/03/18 00:00 100.3 94 18 104/71 (82) 98 08/02/18 22:30 Room Air 08/02/18 21:00 99.5 94 18 103/72 (82) 99 08/02/18 20:08 93 21 97/63 98 Room Air 08/02/18 20:05 98.0 08/02/18 18:34 98.0 91 21 97/71 100 Room Air 08/02/18 16:40 98.7 78 17 112/79 98 Room Air 08/02/18 15:43 99.1 08/02/18 14:40 99.1 88 15 105/70 96 Room Air 08/02/18 14:40 97 15 Room Air 08/02/18 14:38 99.1 94 20 98/70 (79) 96 Room Air Intake and Output 08/02/18 08/03/18 19:00 07:00 Intake Total 50 ml 120 ml Output Total 600 ml Balance 50 ml -480 ml Intake Oral 50 ml 120 ml Output Urine Total 600 ml # Voids 1 3 Laboratory Tests Test 08/02/18 15:00 08/03/18 06:42 White Blood Count 6.0 K/UL (4.8-10.8) 4.5 K/UL (4.8-10.8) L Red Blood Count 3.98 M/UL (4.20-5.40) L 3.88 M/UL (4.20-5.40) L Hemoglobin 10.6 G/DL (12.0-16.0) L 10.3 G/DL (12.0-16.0) L Hematocrit 32.6 % (37.0-47.0) L 32.2 % (37.0-47.0) L Mean Corpuscular Volume 82 FL (80-99) 83 FL (80-99) Mean Corpuscular Hemoglobin 26.5 PG (27.0-31.0) L 26.4 PG (27.0-31.0) L Mean Corpuscular Hemoglobin Concent 32.4 G/DL (32.0-36.0) 31.9 G/DL (32.0-36.0) L Red Cell Distribution Width 15.0 % (11.6-14.8) H 15.4 % (11.6-14.8) H Platelet Count 351 K/UL (150-450) 368 K/UL (150-450) Mean Platelet Volume 4.9 FL (6.5-10.1) L 5.3 FL (6.5-10.1) L Neutrophils (%) (Auto) 60.2 % (45.0-75.0) 64.4 % (45.0-75.0) Lymphocytes (%) (Auto) 27.5 % (20.0-45.0) 25.5 % (20.0-45.0) Monocytes (%) (Auto) 9.2 % (1.0-10.0) 7.2 % (1.0-10.0) Eosinophils (%) (Auto) 1.2 % (0.0-3.0) 0.9 % (0.0-3.0) Basophils (%) (Auto) 2.0 % (0.0-2.0) 1.9 % (0.0-2.0) D-Dimer 1.83 mg/L FEU (0.00-0.49) H Urine HCG, Qualitative Negative (NEGATIVE) Sodium Level 138 MMOL/L (136-145) 138 MMOL/L (136-145) Potassium Level 4.1 MMOL/L (3.5-5.1) 3.8 MMOL/L (3.5-5.1) Chloride Level 103 MMOL/L (98-107) 104 MMOL/L (98-107) Carbon Dioxide Level 27 MMOL/L (21-32) 26 MMOL/L (21-32) Anion Gap 8 mmol/L (5-15) 8 mmol/L (5-15) Blood Urea Nitrogen 9 mg/dL (7-18) 13 mg/dL (7-18) Creatinine 0.8 MG/DL (0.55-1.30) 0.7 MG/DL (0.55-1.30) Estimat Glomerular Filtration Rate > 60 mL/min (>60) > 60 mL/min (>60) Glucose Level 106 MG/DL (74-106) 127 MG/DL (74-106) H Calcium Level 8.9 MG/DL (8.5-10.1) 8.5 MG/DL (8.5-10.1) Total Bilirubin 0.2 MG/DL (0.2-1.0) < 0.1 MG/DL (0.2-1.0) L Aspartate Amino Transf (AST/SGOT) 21 U/L (15-37) 18 U/L (15-37) Alanine Aminotransferase (ALT/SGPT) 34 U/L (12-78) 30 U/L (12-78) Alkaline Phosphatase 166 U/L (46-116) H 137 U/L (46-116) H Total Creatine Kinase 61 U/L (26-308) Creatine Kinase MB < 0.5 NG/ML (0.0-3.6) Creatine Kinase MB Relative Index 0.8 Troponin I 0.000 ng/mL (0.000-0.056) Pro-B-Type Natriuretic Peptide 113 pg/mL (0-125) Total Protein 8.0 G/DL (6.4-8.2) 7.0 G/DL (6.4-8.2) Albumin 3.1 G/DL (3.4-5.0) L 2.6 G/DL (3.4-5.0) L Globulin 4.9 g/dL 4.4 g/dL Albumin/Globulin Ratio 0.6 (1.0-2.7) L 0.6 (1.0-2.7) L Microbiology Date/Time Source Procedure Growth Status 08/02/18 19:00 Rectum Received Height (Feet): 5 Height (Inches): 4.00 Weight (Pounds): 158 Medications Current Medications Medications (Trade) Dose Ordered Sig/Rahul Route PRN Reason Start Time Stop Time Status Last Admin Dose Admin Acetaminophen (Tylenol) 500 mg Q4HR PRN ORAL TEMPERATURE GREATER THAN 100.4 08/03/18 01:00 09/02/18 00:59 Acetaminophen (Tylenol) 500 mg Q6H PRN ORAL Mild Pain (Pain Scale 1-3) 08/02/18 23:30 09/01/18 23:29 Anastrozole (Arimidex) 1 mg DAILY ORAL 08/03/18 09:00 09/02/18 08:59 08/03/18 08:21 Bisacodyl (Dulcolax) 10 mg DAILY RECTAL 08/03/18 09:00 09/02/18 08:59 Bisacodyl (Dulcolax) 15 mg DAILY ORAL 08/03/18 09:00 09/02/18 08:59 08/03/18 08:21 Clonazepam (KlonoPIN) 0.5 mg Q6H ORAL 08/03/18 00:00 08/10/18 00:00 08/03/18 06:11 Dorzolamide HCl (Trusopt) 1 drop BID LEFT EYE 08/03/18 09:00 09/02/18 08:59 08/03/18 09:40 Enoxaparin Sodium (Lovenox) 40 mg DAILY SUBQ 08/03/18 09:00 09/02/18 08:59 08/03/18 08:23 Hydromorphone HCl (Dilaudid) 2 mg Q3H PRN IVP Severe Pain (Pain Scale 7-10) 08/03/18 09:45 08/10/18 09:44 Levetiracetam (Keppra) 500 mg EVERY 12 HOURS ORAL 08/03/18 09:00 09/02/18 08:59 08/03/18 08:22 Lorazepam (Ativan) 0.5 mg THREE TIMES A DAY ORAL 08/03/18 09:00 08/10/18 08:59 Magnesium Hydroxide (Mom) 30 ml BEDTIME ORAL 08/03/18 21:00 09/02/18 20:59 Methadone HCl (Methadone HCl) 10 mg Q6HR ORAL 08/03/18 12:00 08/10/18 09:44 Metronidazole (Flagyl) 500 mg Q8HR ORAL 08/03/18 14:00 08/15/18 13:59 Naloxegol (Movantik) 25 mg DAILY ORAL 08/04/18 09:00 09/03/18 08:59 Naloxone HCl (Narcan) 0.2 mg Q2M PRN IVP respritory distress (RR<12) 08/03/18 09:45 09/02/18 09:44 Nystatin (Nystatin) 5 ml FOUR TIMES A DAY ORAL 08/03/18 09:00 08/10/18 08:59 08/03/18 08:22 Pantoprazole (Protonix) 20 mg DAILY ORAL 08/03/18 09:00 09/02/18 08:59 UNV Polyethylene Glycol (Miralax) 17 gm BEDTIME PRN ORAL Constipation 08/02/18 23:30 09/01/18 23:29 Pregabalin (Lyrica) 75 mg THREE TIMES A DAY ORAL 08/03/18 09:45 09/02/18 09:44 Vancomycin HCl 750 mg/Dextrose 275 ml @ 183.333 mls/hr Q12H IVPB 08/03/18 18:00 08/08/18 17:59 Vitamin D (Vitamin D) 2,000 intlu DAILY ORAL 08/03/18 09:00 09/02/18 08:59 08/03/18 08:21 Zolpidem Tartrate (Ambien) 5 mg BEDTIME PRN ORAL Insomnia 08/02/18 23:30 08/09/18 23:29 Assessment/Plan Assessment/Plan: HEMATOLOGY/ONCOLOGY CONSULTATION DATE OF CONSULT: 08/03/2018 REFERRING PHYSICIAN: Tawana Ordaz REASON FOR CONSULT: Leukopenia, anemia, r/o malignancy HISTORY OF PRESENT ILLNESS Patient is a 37-year-old female with prior history of metastatic breast cancer. Patient was noted to have previous been hospitalized in [facility]. 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 Patient had been recently been on high-dose IV narcotics while in the hospital. Patient was discharged yesterday. Patient is noted to have persistent pain since discharge. Patient apparently had been taking large doses of morphine as well as Dilaudid. Patient had reported having increased pain in her mid back. 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 She was noted to have prior right-sided weakness from brain tumor. Patient had prior history of invasive ductal carcinoma. CBC revealed a wbc of 4.5 and hgb of 10.3 Hematology/Oncology services have been consulted for the evaluation and management of malignant cancer, leukopenia, and anemia. Past Medical History: Breast cancer, Intracranial Abcess, Granuloma, bipolar, anxiety Past Surgical History: craniectomy Social History: Family History: Noncontributory Allergies: No Known Allergies ROS: Constitutional: No fever, no chills, no night sweats, no fatigue. BACK PAIN+ Skin: No rashes, lumps, itchiness, dryness HEENT: No SAAB, ear ache, visual changes, double vision, nosebleeds Breasts: No lumps, pain, discharge Pulmonary: No cough, sputum, shortness of breath, coughing up blood Cardiovascular: No chest pain, tightness, palpitations, syncope, PND GI: No nausea, vomiting, diarrhea, melena, hematochezia, change in appetite, : No dysuria, frequency, urgency, urinary incontinence, foamy urine Musculoskeletal: No joint swelling or muscle pain, trauma. BACK PAIN++ Neurologic: No dizziness, fainting, seizures, changes in smell or taste Psychiatric: No nervousness, stress, or depression, anxiety, hallucinations Endocrine: No weight change, heat or cold intolerance, tremor, insomnia PHYSICAL EXAM General Appearance: alert, GCS 15, Chronically Ill Head: other - craniotomy site C/D/I ENT: hearing grossly normal Neck: limited range of motion Respiratory: chest non-tender, lungs clear Cardiovascular #1: normal inspection, regular rate, rhythm Gastrointestinal: normal inspection, non tender Genitourinary: normal inspection Neurologic: alert, oriented x3, responsive, motor weakness - right upper extremity 4/5, some tremor IMAGIN08/02/18: CXR --> Minimal left basilar atelectasis LABS: 08/03: wbc 4.5 hgb 10.8 plt 368 ASSESSMENT AND PLAN # Metastatic breast cancer with visceral mets, to the spine as well as the brain , , in regards to her treatment, she was diagnosed approximately 3 months ago, has seen several doctors at [facility], has been initialy on ibrance and anastrozaole, the ibrance has since been discontinued, she is at this time only on anastrazole, and she has been getting lupron treatment once a month as well, she is also very likely BRCA ++ because she has 3 grandma siblings (3 great aunts) and also an aunt of her grandma who had all breast cancer at a young age , she has 2 young kids --> at this time, continue anastrazole 1mg po daily --> continue lupron once a month as well --> prognosis unfortunately is poor given brain mets --> neuro eval to see if disease is worse, to get mri of the brain and spine as well --> she is to see rad onc as an outpatient as well --> she is to see medical oncology as outpatient --> to get testing for BRCA as well given she has 2 young kids, has three great aunts with breast cancer as well as a grandmas aunt at a young age --> unfortunately prognosis is poor for this young lady # Decreased white blood cell count, unspec (aka leukopenia) - wbc under 4.5k, could be related to infection v splenomegaly v meds, could be due to chemo --> if the total ANC is less than 2000, may consider neupogen --> continue antibiotics with ID service, appreciate recs --> medications have been reviewed --> hepatitis and hiv have been ordered --> US of the abdomen ordered to r/o hsm/hypersplenomegaly and cirrhosis # Anemia of chronic disease (or of iron deficiency) due to underlying chronic medical issues, multifactorial --> Anemia workup has been ordered, rule out gi bleed --> No evidence of hemolysis is noted, peripheral smear has been reviewed. --> Hgb goal >7. Transfuse prn. --> Epogen or iron at this time is not particularly indicated --> Medications have been reviewed --> low threshold for gi evaluation in case has occult + --> bone marrow biopsy is not indicated given the other more likely causes # Vision Loss, Right eye # Seizure ppx. Continue home dosage of Keppra at this time. Patient denies ever having had a seizure. # Intractable back pain. The time note is entered does not reflect time patient was examined. GREATLY APPRECIATE CONSULTATION. Fred Zhang MD August 03, 2018 12:28
[2018-08-03] MEDS: metroNIDAZOLE 500mg tab ORAL SCH ×2 (14:03→22:16)
--- NOTE | 2018-08-03 14:24 | NUR ---
*-* INSURANCE *-* ALL CLINICALS AND REVIEWS HAVE BEEN FAXED: LEONOR MONAHAN P: [phone] F: [phone]
[2018-08-03 16:00] VITALS: BP 108/70
[2018-08-03] MEDS ORDERED: Gadavist 7.5mMol/7.5ml vial IV PRN (16:00)
[2018-08-03] MEDS: Vancomycin 750mg/D5W 275ml IVPB SCH ×2 (17:35)
[2018-08-03] MEDS ORDERED: Tubing IV Secondary IV ONE (18:17)
[2018-08-03] MEDS ORDERED: D5W 275ml ONE (18:17)
--- NOTE | 2018-08-03 18:23 | Diagnostic Imaging Report ---
History: MASS Exam: MR HEAD Without Contrast Comparison: None available FINDINGS: Left convexity lesion with irregular lobular peripheral enhancement measuring 2.6 x 1.8 x 2 cm, overlying smooth dural enhancement and calvarial defect, correlate with history. There appears to be associated susceptibility artifact consistent with blood products/hemorrhage. Associated moderate amount of vasogenic edema. 2-3 mm of localized left to right midline shift. No hydrocephalus. Major intracranial flow voids appear within limits. No other lesion or abnormal enhancement identified. No acute infarct. Cannot exclude ovoid osseous metastatic lesion at the right side of the clivus measuring around 9 mm image 6 series 7 and image 12 series 4. Mild left maxillary sinus mucosal thickening. Old right medial orbital wall fracture deformity. IMPRESSION: Left convexity lesion with irregular lobular peripheral enhancement measuring 2.6 x 1.8 x 2 cm, overlying smooth dural enhancement and calvarial defect, correlate with history. There appears to be associated susceptibility artifact consistent with blood products/hemorrhage. Associated moderate amount of vasogenic edema. 2-3 mm of localized left to right midline shift. No hydrocephalus. No other lesion or abnormal enhancement identified. No acute infarct.
--- NOTE | 2018-08-03 18:27 | Diagnostic Imaging Report ---
History: MASS Exam: XR RIGHT HIP 2 views Comparison: None available FINDINGS: No fracture or dislocation. 1 cm lucent focus inferior left pubic ramus and a couple of smaller foci suggested at the right inferior pubic ramus and ischial tuberosity. Possible subtle 1 cm lucent intertrochanteric lesion right femur. IMPRESSION: No fracture or dislocation. 1 cm lucent focus inferior left pubic ramus and a couple of smaller foci suggested at the right inferior pubic ramus and ischial tuberosity. Possible subtle 1 cm lucent intertrochanteric lesion right femur.
--- NOTE | 2018-08-03 18:28 | Diagnostic Imaging Report ---
History: MASS Exam: XR T SPINE 3 views Comparison: None available FINDINGS: No evidence of fracture or malalignment. The disc spaces appear within limits. No definite osseous lesion identified. IMPRESSION: Study appears within limits.
--- NOTE | 2018-08-03 18:33 | Diagnostic Imaging Report ---
History: MASS Exam: XR L SPINE 3 views Comparison: None available FINDINGS: No evidence of fracture or malalignment. The disc spaces appear within limits. No definite osseous lesion identified. IMPRESSION: Study appears within limits.
--- NOTE | 2018-08-03 19:16 | NUR ---
HAND-OFF: Report given to TIMA Welch.
[2018-08-03 20:00] VITALS: BP 139/84
[2018-08-03] MEDS: Milk of Magnesia 30ml Ud ORAL SCH (22:16)
[2018-08-04] VITALS: BP 127/85
--- NOTE | 2018-08-04 00:04 | Neurology Progress Note ---
Interim History Interim History ROS Limited/Unobtainable: No Complaints: Uncontrolled Pain/ Cerebral Edema Events: Pain improving Interim History This visit was conducted on August 04, [address] Rodríguez Flaherty. Review of Systems Neuro Review of Systems Improved pain, mood and mentation today. Objective Physical Exam Last Vital Signs Date Time Temp Pulse Resp B/P (MAP) Pulse Ox O2 Delivery O2 Flow Rate FiO2 08/03/18 19:23 99.4 08/03/18 16:00 101 18 108/70 (83) 97 08/03/18 09:00 Room Air Laboratory Tests Test 08/03/18 06:42 White Blood Count 4.5 K/UL (4.8-10.8) L Red Blood Count 3.88 M/UL (4.20-5.40) L Hemoglobin 10.3 G/DL (12.0-16.0) L Hematocrit 32.2 % (37.0-47.0) L Mean Corpuscular Volume 83 FL (80-99) Mean Corpuscular Hemoglobin 26.4 PG (27.0-31.0) L Mean Corpuscular Hemoglobin Concent 31.9 G/DL (32.0-36.0) L Red Cell Distribution Width 15.4 % (11.6-14.8) H Platelet Count 368 K/UL (150-450) Mean Platelet Volume 5.3 FL (6.5-10.1) L Neutrophils (%) (Auto) 64.4 % (45.0-75.0) Lymphocytes (%) (Auto) 25.5 % (20.0-45.0) Monocytes (%) (Auto) 7.2 % (1.0-10.0) Eosinophils (%) (Auto) 0.9 % (0.0-3.0) Basophils (%) (Auto) 1.9 % (0.0-2.0) Sodium Level 138 MMOL/L (136-145) Potassium Level 3.8 MMOL/L (3.5-5.1) Chloride Level 104 MMOL/L (98-107) Carbon Dioxide Level 26 MMOL/L (21-32) Anion Gap 8 mmol/L (5-15) Blood Urea Nitrogen 13 mg/dL (7-18) Creatinine 0.7 MG/DL (0.55-1.30) Estimat Glomerular Filtration Rate > 60 mL/min (>60) Glucose Level 127 MG/DL (74-106) H Calcium Level 8.5 MG/DL (8.5-10.1) Total Bilirubin < 0.1 MG/DL (0.2-1.0) L Aspartate Amino Transf (AST/SGOT) 18 U/L (15-37) Alanine Aminotransferase (ALT/SGPT) 30 U/L (12-78) Alkaline Phosphatase 137 U/L (46-116) H Total Protein 7.0 G/DL (6.4-8.2) Albumin 2.6 G/DL (3.4-5.0) L Globulin 4.4 g/dL Albumin/Globulin Ratio 0.6 (1.0-2.7) L Neurologic Exam Mental Status: other Speech: normal speech, other Cranial Nerve II: other Cranial Nerves III, IV, : PERRLA, other Cranial Nerve VII: other Cranial Nerve VIII: normal hearing, no nystagmus Cranial Nerve IX: normal palate elevation, gag response Cranial Nerve X: no voice hoarseness Cranial Nerve XI: SCM symmetric, trapezii function normal Cranial Nerve XII: tongue midline, no tongue atrophy/fasciculations Motor System: normal muscle tone, no muscle wasting, other Sensory: normal pinprick, normal light touch Coordination: other Imaging [facility] Medical Imaging [address] [place] [address] [phone], fax [phone] Dm Keller M.D. Product Safety Technician Patient : CARLOS BOATENG Referring Physician: Indira Gonzalez N.P. ID Number: [id number] Service Date: 08/03/18 : 1980 Report Date: 08/03/18 Gender: F Accession No.: [id number] Location: 4E Procedure: MRI Brain w/wo Contrast History: MASS Exam: MR HEAD Without Contrast Comparison: None available FINDINGS: Left convexity lesion with irregular lobular peripheral enhancement measuring 2.6 x 1.8 x 2 cm, overlying smooth dural enhancement and calvarial defect, correlate with history. There appears to be associated susceptibility artifact consistent with blood products/hemorrhage. Associated moderate amount of vasogenic edema. 2-3 mm of localized left to right midline shift. No hydrocephalus. Major intracranial flow voids appear within limits. No other lesion or abnormal enhancement identified. No acute infarct. Cannot exclude ovoid osseous metastatic lesion at the right side of the clivus measuring around 9 mm image 6 series 7 and image 12 series 4. Mild left maxillary sinus mucosal thickening. Old right medial orbital wall fracture deformity. IMPRESSION: Left convexity lesion with irregular lobular peripheral enhancement measuring 2.6 x 1.8 x 2 cm, overlying smooth dural enhancement and calvarial defect, correlate with history. There appears to be associated susceptibility artifact consistent with blood products/hemorrhage. Associated moderate amount of vasogenic edema. 2-3 mm of localized left to right midline shift. No hydrocephalus. No other lesion or abnormal enhancement identified. No acute infarct. Dictated By: Fermin Lara MD Electronically Signed By: Fermin Lara MD Signed Date/Time 08/03/181821 CC: Indira Gonzalez N.P.; Tawana Ordaz MD [facility] [employer] [address] [place], [place] [id number] , fax [phone] Dm Keller M.D. Product Safety Technician Patient : CARLOS BOATENG Referring Physician: Indira Gonzalez N.P. ID Number: [id number] Service Date: 08/03/18 : 1980 Report Date: 08/03/18 Gender: F Accession No.: [id number] Location: 4E Procedure: XRAY Hip Routine 2v+ w/Pelv- R History: MASS Exam: XR RIGHT HIP 2 views Comparison: None available FINDINGS: No fracture or dislocation. 1 cm lucent focus inferior left pubic ramus and a couple of smaller foci suggested at the right inferior pubic ramus and ischial tuberosity. Possible subtle 1 cm lucent intertrochanteric lesion right femur. IMPRESSION: No fracture or dislocation. 1 cm lucent focus inferior left pubic ramus and a couple of smaller foci suggested at the right inferior pubic ramus and ischial tuberosity. Possible subtle 1 cm lucent intertrochanteric lesion right femur. Dictated By: Fermin Lara MD Electronically Signed By: Fermin Lara MD Signed Date/Time 08/03/181825 CC: Indira Gonzalez N.P.; Tawana Ordaz MD [facility] Medical Imaging [address] [place], [place] [id number] , fax [phone] Dm Keller M.D. Product Safety Technician Patient : SHANEBAYCARLOS R Referring Physician: Indira Gonzalez N.P. ID Number: [id number] Service Date: 08/03/18 : 1980 Report Date: 08/03/18 Gender: F Accession No.: [id number] Location: 4E Procedure: XRAY L Spine Ltd History: MASS Exam: XR L SPINE 3 views Comparison: None available FINDINGS: No evidence of fracture or malalignment. The disc spaces appear within limits. No definite osseous lesion identified. IMPRESSION: Study appears within limits. Dictated By: Fermin Lara MD Electronically Signed By: Fermin Lara MD Signed Date/Time 08/03/18 183 CC: Indira Gonzalez N.P.; Tawana Ordaz MD [facility] Medical Imaging [facility] [place] [address] [phone], fax [phone] Dm eKller M.D. Product Safety Technician Patient : CARLOS BOATENG Referring Physician: Indira Gonzalez N.P. ID Number: [id number] Service Date: 08/03/18 : 1980 Report Date: 08/03/18 Gender: F Accession No.: [id number] Location: 4E Procedure: XRAY T Spine 2v History: MASS Exam: XR T SPINE 3 views Comparison: None available FINDINGS: No evidence of fracture or malalignment. The disc spaces appear within limits. No definite osseous lesion identified. IMPRESSION: Study appears within limits. Dictated By: Fermin Lara MD Electronically Signed By: Fermin Lara MD Signed Date/Time 08/03/18 117 CC: Indira Gonzalez N.P.; Tawana Ordaz MD Impression/Recommendations Problems: (1) Vision loss, right eye (2) Muscle right arm weakness (3) Seizure prophylaxis Assessment & Plan: Continue home dosage of Keppra at this time. Patient denies ever having had a seizure. (4) Brain metastasis (5) Bony metastasis (6) Metastatic breast cancer (7) Seizure (8) Hx of breast cancer Assessment & Plan: Xrays showing only hip mets, Xrays not revealing. Will order CT L/ T spine and consider MRI if helpful during hospitalization. (9) Intractable back pain Assessment & Plan: Recommend going back to Fentanyl 100mcg patch as previously on with IV dilaudid Q3 Recommend MRI T/L Spine, Right Hip imaging - query kenny mets MRI Brain w/ w/o contrast for Brain Mets, assessment of edema, mets, or abscess recurrence. Status: progressing, tolerating diet Recommendations Continue Q 4 Neuro obs Continue Seizure prophylaxis Continue to maintain Normoglycemia with ISS Continue pain management with goal of transition to Oral management. Will follow up on scans for assessment of Metastatic disease Indira Gonzalez N.P. Aug 04, 2018 00:04
--- NOTE | 2018-08-04 00:31 | Consultation ---
DATE OF CONSULTATION: 08/03/2018 PAIN MANAGEMENT CONSULTATION CONSULTING PHYSICIAN: Марина Choi M.D. REFERRING PHYSICIAN: Tawana Ordaz M.D. PHYSICIAN SOFTWARE QUALITY ANALYST: Froilan Tang CHIEF COMPLAINT: Back and chest pain. HISTORY OF PRESENT ILLNESS: This is a 37-year-old female who is being seen on the Med/Surg floor of [facility] for initial pain management consultation. The patient was admitted under the care of Dr. Ordaz, found to have metastatic breast cancer to the bone, reports that she was recently diagnosed in April, had been at [facility] and recently discharged to nursing facility; however, complaining of severe pain, taking fentanyl patches 100 mcg every 72 hours, Dilaudid 6 mg tablet every 4 hours and morphine 6 mg IV every 2 hours as needed for pain. However reports continued severe pain with minimal pain relief. At this time, she is being seen by a neurologist, reporting that she had a craniotomy due to infection in her brain. At this time, we were consulted so the patient would have adequate pain control while here in the hospital. PAST MEDICAL HISTORY: Breast cancer, bipolar disorder, anxiety. SOCIAL HISTORY: Denies smoking tobacco, drinking alcohol, or drug abuse. ALLERGIES: No known drug allergies. MEDICATIONS: Fentanyl, Dilaudid, Tylenol, Bystolic, Dulcolax, Klonopin, morphine, Keppra, lorazepam, Flagyl, nystatin, and Protonix. REVIEW OF SYSTEMS: Denies rash, fever, chills, sweating, dizziness, blurred vision, sore throat, or change in her weight. No shortness of breath or chest pain. No nausea, vomiting, diarrhea, blood in the stool or urine. No bowel or bladder incontinence. No dysuria. She is complaining of back pain and chest wall pain. PHYSICAL EXAMINATION: GENERAL: Alert, awake, oriented. VITAL SIGNS: Blood pressure 125/82 , heart rate is 100, oxygen saturation 98%, respiratory rate 18, temperature 98.4 degrees Fahrenheit. HEENT: PERRLA with craniotomy bandages noted. Tenderness to palpation. NECK: Range of motion is full in all directions. No tenderness to paracervical muscles. No adenopathy. LUNGS: Decreased breath sounds bilaterally. HEART: S1 and S2 regular. ABDOMEN: Soft and nontender. BACK: Range of motion is decreased in flexion and extension with tenderness to paraspinal muscles, trapezius and rhomboid muscles EXTREMITIES: Upper and lower extremity range of motion is decreased due to the patient's condition. No cyanosis. No clubbing. Sensory is reduced. Reflexes are unobtainable. No adenopathy. ASSESSMENT AND PLAN: This is a 37-year-old female with metastatic breast cancer to the bone, intractable pain. The patient will be discontinued off the fentanyl, morphine IV, and Dilaudid tablets. We will start the patient on methadone 10 mg tablet every 6 hours around the clock, hold for sedation. We will start the patient on Dilaudid 2 mg IV every 3 hours as needed for severe pain as well as Lyrica 75 mg three times a day. Narcan will be started and parameters will be set to hold opiates for oversedation or systolic blood pressure below 90 or diastolic blood pressure below 60, respiratory rate 12, oxygen saturation below 92%. The patient was discussed with Dr. Choi and Dr. Choi concurred. We will follow the patient. Thank you very much for the courtesy of this consultation. Марина Choi M.D. KARIME Tang DR: Elena JOB#: [id number] CC: [place]
[2018-08-04] MEDS: clonazePAM 0.5mg tab ORAL SCH ×5 (00:33→23:30)
[2018-08-04 04:00] VITALS: BP 111/72
[2018-08-04] MEDS: metroNIDAZOLE 500mg tab ORAL SCH ×3 (06:52→21:26)
--- NOTE | 2018-08-04 07:15 | NUR ---
VANCOMICIN AT 0600 DOSE NOT GIVEN DUE TO NO MEDICATION AVAILABLE. PHAMACY CALLED. OK TO WAIT UNTIL SEND THE MEDICATION ,ENDORCED TO DAY NURSE ROSAMARIA ALFRED
--- NOTE | 2018-08-04 07:45 | History and Physical Report ---
DATE OF ADMISSION: 08/02/2018 HISTORY OF PRESENT ILLNESS: The patient is admitted for intractable back pain. The patient has history of metastatic breast cancer. The patient's back pain was so bad. It was radiating to chest and the right hip, admitted for pain control. The patient was recently diagnosed in April 2018 with breast cancer metastasized to the bone. The patient has multiple craniotomies for brain abscess removal. The patient is also status post chemotherapy and radiation and is status post treatment for brain abscess . The patient denies shortness of breath. Denies cough. Denies nausea, vomiting, or diarrhea. Denies fever or chills. PAST MEDICAL HISTORY: Metastatic breast cancer, constipation. seizure prophylaxis, vision loss. History of chronic pain, anxiety, GERD. PAST SURGICAL HISTORY: Craniotomy, . SOCIAL HISTORY: History of smoking, history of drug abuse. No history of alcohol abuse. MEDICATIONS: Xanax, Keppra, Protonix, Bisacodyl, Arimidex, vitamin D3, and Klonopin. FAMILY HISTORY: Noncontributory. REVIEW OF SYSTEMS: HEENT: Denies headaches. RESPIRATORY: Denies shortness of breath. Denies cough. CARDIOVASCULAR: Denies chest pain. No orthopnea. GASTROINTESTINAL: Denies nausea, vomiting, or diarrhea. EXTREMITIES: Reports generalized pain. NEUROLOGIC: Significant change in speech pattern. Feels weak. PHYSICAL EXAMINATION: VITAL SIGNS: Temperature is 99.4, pulse is 92, blood pressure is 105/71. HEENT: PERRLA. NECK: Supple. No lymphadenopathy. CHEST: Clear to auscultation. showing chemotherapy and radiation. CARDIOVASCULAR: Regular rate and rhythm. No murmurs or extra sounds. GASTROINTESTINAL: Soft, nontender, and nondistended. No organomegaly. EXTREMITIES: No edema. Moves all four extremities. Reflexes equal in both sides. LABORATORY DATA: WBC of 6, hemoglobin 10.6, platelets of 351. Sodium 138, potassium 4.1, BUN of 9, creatinine of 0.8, glucose of 106. ASSESSMENT AND PLAN: 1. Intractable pain. 2. Metastatic breast cancer. I have basically consulted Dr. Choi, for seizure prophylaxis, and Dr. Fred Zhang for the metastatic breast cancer. Ali Roxann Ordaz DR: DOLLY JOB#: [id number] CC:
[2018-08-04 08:00] VITALS: BP 141/81
--- NOTE | 2018-08-04 08:22 | NUR ---
NURSE NOTES: Patient is awake and alert,sitting up in bed,respirations are unlabored.Patient in good spirit.NO complaints at this time.Patient eating breakfast at tththis time.Call light within reach,bed alarm is on.
--- NOTE | 2018-08-04 08:42 | NUR ---
HAND-OFF: Report given to ROSAMARIA ALFRED.
[2018-08-04] MEDS: Dorzolamide 2% 10ml Btl LEFT EYE SCH ×2 (08:52→18:42)
[2018-08-04] MEDS: Enoxaparin 40mg Inj SUBQ SCH (08:54)
[2018-08-04] MEDS: LORazepam 0.5mg tab ORAL SCH ×3 (08:54→18:42)
[2018-08-04] MEDS: Anastrazole 1mg tab ORAL SCH (08:54)
[2018-08-04] MEDS: Vitamin D 1000 IU Tab ORAL SCH (08:55)
[2018-08-04] MEDS: Lyrica 75mg cap ORAL SCH ×4 (08:55→18:43)
[2018-08-04] MEDS: Bisacodyl EC 5mg tab ORAL SCH (08:56)
[2018-08-04] MEDS: Nystatin Susp 500,000 units/5ml ORAL SCH ×4 (08:57→21:04)
[2018-08-04] MEDS: Naloxegol Oxalate 25mg tab ORAL SCH (08:57)
[2018-08-04] MEDS: Vancomycin 750mg/D5W 275ml IVPB SCH ×2 (09:45)
[2018-08-04 12:00] VITALS: BP 129/92
--- NOTE | 2018-08-04 14:12 | NUR ---
CHARGE NURSE NOTE: VRE rectum +. and notified. No new orders given.
[2018-08-04 16:00] VITALS: BP 132/78
--- NOTE | 2018-08-04 17:07 | Diagnostic Imaging Report ---
EXAM: CT Pelvis Without Intravenous Contrast CLINICAL HISTORY: MASS TECHNIQUE: Axial computed tomography images of the pelvis without intravenous contrast. CTDI is 12.29 mGy and DLP is 333 mGy-cm. One or more of the following dose reduction techniques were used: automated exposure control, adjustment of the mA and/or kV according to patient size, use of iterative reconstruction technique. COMPARISON: No relevant prior studies available. FINDINGS: Intraperitoneal space: Small amount of fluid in the pelvis. Bladder: Unremarkable. Reproductive: Unremarkable. Bones/joints: No acute fracture or dislocation. Numerous lytic lesions in the osseous structures suggesting metastasis or multiple myeloma. Soft tissues: Subcutaneous edema in the back. Vasculature: Unremarkable. No lower abdominal aortic aneurysm. Lymph nodes: No enlarged lymph nodes. IMPRESSION: 1. No acute fracture or dislocation. 2. Numerous lytic lesions in the osseous structures suggesting metastasis or multiple myeloma.
--- NOTE | 2018-08-04 17:11 | Diagnostic Imaging Report ---
EXAM: CT Thoracic Spine Without Intravenous Contrast CLINICAL HISTORY: MASS TECHNIQUE: Axial computed tomography images of the thoracic spine without intravenous contrast. CTDI is 22.0 2 mGy and DLP is 722.2 mGy-cm. One or more of the following dose reduction techniques were used: automated exposure control, adjustment of the mA and/or kV according to patient size, use of iterative reconstruction technique. COMPARISON: No relevant prior studies available. FINDINGS: Vertebrae: Diffuse lytic lesions consistent with multiple myeloma or metastasis. Pathologic fracture involving the superior endplate of T2 and the inferior endplate of T6. No retropulsion. Discs/spinal canal/neural foramina: No acute process. Lungs: Bilateral consolidative atelectasis. Pleural space: Trace left pleural effusion. Heart: Cardiomegaly. Thyroid: 9 mm nodule in the right lobe of the thyroid gland. IMPRESSION: Diffuse lytic lesions consistent with multiple myeloma or metastasis. Pathologic fracture involving the superior endplate of T2 and the inferior endplate of T6. No retropulsion.
--- NOTE | 2018-08-04 17:13 | Diagnostic Imaging Report ---
EXAM: CT Lumbar Spine Without Intravenous Contrast CLINICAL HISTORY: MASS TECHNIQUE: Axial computed tomography images of the lumbar spine without intravenous contrast. CTDI is 13.86 mGy and DLP is 342.27 mGy-cm. One or more of the following dose reduction techniques were used: automated exposure control, adjustment of the mA and/or kV according to patient size, use of iterative reconstruction technique. COMPARISON: No relevant prior studies available. FINDINGS: Vertebrae: Diffuse lytic lesions consistent with metastasis or multiple myeloma. Pathologic fracture in the interim endplate of L5. No retropulsion. Discs/spinal canal/neural foramina: No acute process. Soft tissues: Subcutaneous edema in the back. IMPRESSION: Diffuse lytic lesions consistent with metastasis or multiple myeloma. Pathologic fracture in the interim endplate of L5. No retropulsion.
--- NOTE | 2018-08-04 17:34 | NUR ---
CASE MANAGEMENT: REVIEW 08/04/2018 SI:INTRACTABLE BACK PAIN . METS BREAST CANCER T 98.3 HR 81 RR 18 B/P 127/85 SATS 98% ON RA NO LABS TODAY IS:KEPPRA PO Q12H DECADRON PO BID ARIMIDEX PO QD LOVENOX SUBQ QD VANCO IV Q12H METHADONE PO Q6H FLAGYL PO Q8H
--- NOTE | 2018-08-04 17:58 | NUR ---
NURSE NOTES: Patient sitting up in bed and eating dinner,medicated for pain ,patient state as along as she gets her pain medication she is able to move around and do things for herself.Patient continues with a positive attitude.patient state she is able to see better out of her left eye.Call light within reach,bed alarm is on.
--- NOTE | 2018-08-04 19:38 | NUR ---
HAND-OFF: Report given to Anjali ALFRED.
--- NOTE | 2018-08-04 19:56 | NUR ---
NURSE NOTES: Pt received in bed, alert, no c/o pain at the moment, bed in lowest position, able to make needs known, call light within reach, will continue to monitor.
[2018-08-04 20:00] VITALS: BP 108/73
[2018-08-04] MEDS: Milk of Magnesia 30ml Ud ORAL SCH (21:05)
[2018-08-04] MEDS ORDERED: Vancomycin 750mg/D5W 275ml IVPB SCH ×2 (22:00)
[2018-08-05] VITALS: BP 134/84
[2018-08-05 04:00] VITALS: BP 119/83
[2018-08-05] MEDS: clonazePAM 0.5mg tab ORAL SCH ×4 (04:39→22:42)
[2018-08-05] MEDS: metroNIDAZOLE 500mg tab ORAL SCH ×3 (05:21→22:41)
--- NOTE | 2018-08-05 07:08 | NUR ---
HAND-OFF: Report given to TIMA Narvaez.
--- NOTE | 2018-08-05 07:40 | NUR ---
NURSE NOTES: awake/alert. pain scale 7/10. in no acute distress.
[2018-08-05 08:00] VITALS: BP 132/89
[2018-08-05] MEDS: Vitamin D 1000 IU Tab ORAL SCH (08:37)
[2018-08-05] MEDS: LORazepam 0.5mg tab ORAL SCH ×3 (08:37→17:53)
[2018-08-05] MEDS: Bisacodyl EC 5mg tab ORAL SCH (08:38)
[2018-08-05] MEDS: Anastrazole 1mg tab ORAL SCH (08:38)
[2018-08-05] MEDS: Lyrica 75mg cap ORAL SCH ×3 (08:38→17:54)
[2018-08-05] MEDS: Nystatin Susp 500,000 units/5ml ORAL SCH ×4 (08:38→20:42)
[2018-08-05] MEDS: Naloxegol Oxalate 25mg tab ORAL SCH (08:38)
[2018-08-05] MEDS: Enoxaparin 40mg Inj SUBQ SCH (08:42)
[2018-08-05] MEDS: Dorzolamide 2% 10ml Btl LEFT EYE SCH ×2 (09:16→17:58)
[2018-08-05] MEDS: Vancomycin 1gm/D5W 275ml IVPB SCH ×4 (10:39→18:45)
[2018-08-05 12:00] VITALS: BP 135/86
--- NOTE | 2018-08-05 12:32 | General Progress Note ---
Assessment/Plan Assessment/Plan: (1) Metastatic breast cancer to bone (2) Intractable pain Patient will be continued on Methadone Lyrica and Dilaudid. D/w Dr. Choi and he concurred. Subjective Date patient seen: Aug 05, 2018 Time patient seen: 11:15 - am Allergies: Coded Allergies: No Known Allergies (Unverified , 08/02/18) Subjective REVIEW OF SYSTEMS: Denies rash, fever, chills, sweating, dizziness, blurred vision, sore throat, or change in her weight. No shortness of breath or chest pain. No nausea, vomiting, diarrhea, blood in the stool or urine. No bowel or bladder incontinence. No dysuria. She is complaining of back pain and chest wall pain. SUBJECTIVE: Patient in bed and reports that her pain has been tolerated on the scheduled methadone and Dilaudid 6 doses in the last 24hrs. Objective Last 24 Hour Vital Signs Date Time Temp Pulse Resp B/P (MAP) Pulse Ox O2 Delivery O2 Flow Rate FiO2 08/05/18 10:43 97.4 08/05/18 09:08 97.4 08/05/18 08:06 Room Air 08/05/18 08:00 97.4 85 16 132/89 (103) 99 08/05/18 04:00 97.4 72 18 119/83 (95) 99 08/05/18 00:00 97.9 80 20 134/84 (101) 94 08/04/18 21:00 Room Air 08/04/18 20:00 98.1 95 18 108/73 (85) 97 08/04/18 16:00 97.1 87 18 132/78 (96) 97 Intake and Output 08/04/18 08/05/18 18:59 06:59 Intake Total 1400 ml 866.666 ml Balance 1400 ml 866.666 ml Intake Oral 600 ml 500 ml IV Total 366.666 ml Other 800 ml Laboratory Tests 08/05/18 09:00: Vancomycin Level Trough 5.3 Height (Feet): 5 Height (Inches): 4.00 Weight (Pounds): 158 Objective GENERAL: Alert, awake, oriented. LUNGS: Decreased breath sounds bilaterally. HEART: S1 and S2 regular. ABDOMEN: Soft and nontender. EXTREMITIES: No cyanosis. No clubbing. NEURO: No changes. Procedure: CT T Spine no Contrast EXAM: CT Thoracic Spine Without Intravenous Contrast CLINICAL HISTORY: MASS TECHNIQUE: Axial computed tomography images of the thoracic spine without intravenous contrast. CTDI is 22.0 2 mGy and DLP is 722.2 mGy-cm. One or more of the following dose reduction techniques were used: automated exposure control, adjustment of the mA and/or kV according to patient size, use of iterative reconstruction technique. COMPARISON: No relevant prior studies available. FINDINGS: Vertebrae: Diffuse lytic lesions consistent with multiple myeloma or metastasis. Pathologic fracture involving the superior endplate of T2 and the inferior endplate of T6. No retropulsion. Discs/spinal canal/neural foramina: No acute process. Lungs: Bilateral consolidative atelectasis. Pleural space: Trace left pleural effusion. Heart: Cardiomegaly. Thyroid: 9 mm nodule in the right lobe of the thyroid gland. IMPRESSION: Diffuse lytic lesions consistent with multiple myeloma or metastasis. Pathologic fracture involving the superior endplate of T2 and the inferior endplate of T6. No retropulsion. Procedure: CT L Spine no Contrast EXAM: CT Lumbar Spine Without Intravenous Contrast CLINICAL HISTORY: MASS TECHNIQUE: Axial computed tomography images of the lumbar spine without intravenous contrast. CTDI is 13.86 mGy and DLP is 342.27 mGy-cm. One or more of the following dose reduction techniques were used: automated exposure control, adjustment of the mA and/or kV according to patient size, use of iterative reconstruction technique. COMPARISON: No relevant prior studies available. FINDINGS: Vertebrae: Diffuse lytic lesions consistent with metastasis or multiple myeloma. Pathologic fracture in the interim endplate of L5. No retropulsion. Discs/spinal canal/neural foramina: No acute process. Soft tissues: Subcutaneous edema in the back. IMPRESSION: Diffuse lytic lesions consistent with metastasis or multiple myeloma. Pathologic fracture in the interim endplate of L5. No retropulsion. Procedure: CT Pelvis no Contrast EXAM: CT Pelvis Without Intravenous Contrast CLINICAL HISTORY: MASS TECHNIQUE: Axial computed tomography images of the pelvis without intravenous contrast. CTDI is 12.29 mGy and DLP is 333 mGy-cm. One or more of the following dose reduction techniques were used: automated exposure control, adjustment of the mA and/or kV according to patient size, use of iterative reconstruction technique. COMPARISON: No relevant prior studies available. FINDINGS: Intraperitoneal space: Small amount of fluid in the pelvis. Bladder: Unremarkable. Reproductive: Unremarkable. Bones/joints: No acute fracture or dislocation. Numerous lytic lesions in the osseous structures suggesting metastasis or multiple myeloma. Soft tissues: Subcutaneous edema in the back. Vasculature: Unremarkable. No lower abdominal aortic aneurysm. Lymph nodes: No enlarged lymph nodes. IMPRESSION: 1. No acute fracture or dislocation. 2. Numerous lytic lesions in the osseous structures suggesting metastasis or multiple myeloma. Ernesto Avila Aug 05, 2018 12:32
--- NOTE | 2018-08-05 15:24 | Hematology/Onc Progress Note ---
Assessment/Plan Assessment/Plan ASSESSMENT AND PLAN: # Metastatic breast cancer with visceral mets, to the spine as well as the brain , in regards to her treatment, she was diagnosed approximately 3 months ago, has seen several doctors at [facility], has been initialy on ibrance and anastrozaole, the ibrance has since been discontinued, she is at this time only on anastrazole, and she has been getting lupron treatment once a month as well, she is also very likely BRCA ++ because she has 3 grandma siblings (3 great aunts) and also an aunt of her grandma who had all breast cancer at a young age , she has 2 young kids --> at this time, continue anastrazole 1mg po daily --> continue lupron once a month as well --> prognosis unfortunately is poor given brain mets --> neuro eval to see if disease is worse, to get mri of the brain and spine as well --> she is to see rad onc as an outpatient as well --> she is to see medical oncology as outpatient --> to get testing for BRCA as well given she has 2 young kids, has three great aunts with breast cancer as well as a grandmas aunt at a young age --> unfortunately prognosis is poor for this young lady --> 08/04 imaging: multiple CT imaging suggest of metastasis # Decreased white blood cell count, unspec (aka leukopenia) - wbc under 4.5k, could be related to infection v splenomegaly v meds, could be due to chemo --> if the total ANC is less than 2000, may consider neupogen --> continue antibiotics with ID service, appreciate recs --> medications have been reviewed --> hepatitis and hiv have been ordered --> CT of abd/spine show multiple mets # Anemia of chronic disease (or of iron deficiency) due to underlying chronic medical issues, multifactorial --> Anemia workup has been ordered, rule out gi bleed --> No evidence of hemolysis is noted, peripheral smear has been reviewed. --> Hgb goal >7. Transfuse prn. --> Epogen or iron at this time is not particularly indicated --> Medications have been reviewed --> low threshold for gi evaluation in case has occult + --> bone marrow biopsy is not indicated given the other more likely causes # Vision Loss, Right eye # Seizure ppx. Continue home dosage of Keppra at this time. Patient denies ever having had a seizure. # Intractable back pain. The time note is entered does not reflect time patient was examined. GREATLY APPRECIATE CONSULTATION. Subjective Allergies: Coded Allergies: No Known Allergies (Unverified , 08/02/18) Subjective 08/05: Pt awake and alert. No signs acute distress. Several CT imaging reviewed, shows metastasis. Pt with poor prognosis. Objective Objective Current Medications Medications (Trade) Dose Ordered Sig/Rahul Route PRN Reason Start Time Stop Time Status Last Admin Dose Admin Acetaminophen (Tylenol) 500 mg Q4HR PRN ORAL TEMPERATURE GREATER THAN 100.4 08/03/18 01:00 09/02/18 00:59 Acetaminophen (Tylenol) 500 mg Q6H PRN ORAL Mild Pain (Pain Scale 1-3) 08/02/18 23:30 09/01/18 23:29 Anastrozole (Arimidex) 1 mg DAILY ORAL 08/03/18 09:00 09/02/18 08:59 08/05/18 08:38 Bisacodyl (Dulcolax) 10 mg DAILY RECTAL 08/03/18 09:00 09/02/18 08:59 08/05/18 08:39 Bisacodyl (Dulcolax) 15 mg DAILY ORAL 08/03/18 09:00 09/02/18 08:59 08/05/18 08:38 Clonazepam (KlonoPIN) 0.5 mg Q6H ORAL 08/04/18 17:00 08/11/18 16:59 08/05/18 10:38 Dexamethasone (Decadron) 2 mg BID ORAL 08/03/18 18:00 09/02/18 17:59 08/05/18 08:45 Dorzolamide HCl (Trusopt) 1 drop BID LEFT EYE 08/03/18 09:00 09/02/18 08:59 08/05/18 09:16 Enoxaparin Sodium (Lovenox) 40 mg DAILY SUBQ 08/03/18 09:00 09/02/18 08:59 08/05/18 08:42 Gadobutrol (Gadavist) 7.5 mmol NOW PRN IV Radiology Procedure 08/03/18 16:00 08/07/18 15:50 Hydromorphone HCl (Dilaudid) 2 mg Q3H PRN IVP Severe Pain (Pain Scale 7-10) 08/03/18 09:45 08/10/18 09:44 08/05/18 10:13 Levetiracetam (Keppra) 500 mg EVERY 12 HOURS ORAL 08/03/18 09:00 09/02/18 08:59 08/05/18 08:37 Lorazepam (Ativan) 0.5 mg THREE TIMES A DAY ORAL 08/03/18 09:00 08/10/18 08:59 08/05/18 12:44 Magnesium Hydroxide (Mom) 30 ml BEDTIME ORAL 08/03/18 21:00 09/02/18 20:59 08/04/18 21:05 Methadone HCl (Methadone HCl) 10 mg Q6HR ORAL 08/03/18 12:00 08/10/18 09:44 08/05/18 12:19 Metronidazole (Flagyl) 500 mg Q8HR ORAL 08/03/18 14:00 08/15/18 13:59 08/05/18 13:58 Naloxegol (Movantik) 25 mg DAILY ORAL 08/04/18 09:00 09/03/18 08:59 08/05/18 08:38 Naloxone HCl (Narcan) 0.2 mg Q2M PRN IVP respritory distress (RR<12) 08/03/18 09:45 09/02/18 09:44 Nystatin (Nystatin) 5 ml FOUR TIMES A DAY ORAL 08/03/18 09:00 08/10/18 08:59 08/05/18 12:44 Pantoprazole (Protonix) 40 mg DAILY ORAL 08/03/18 15:00 09/02/18 14:59 08/05/18 08:38 Polyethylene Glycol (Miralax) 17 gm BEDTIME PRN ORAL Constipation 08/02/18 23:30 09/01/18 23:29 Pregabalin (Lyrica) 75 mg THREE TIMES A DAY ORAL 08/03/18 09:45 09/02/18 09:44 08/05/18 12:44 Vancomycin HCl (Vanco rx to dose) 1 ea DAILY PRN MISC PER PHARMACY 08/04/18 13:45 09/03/18 13:44 Vancomycin HCl 1 gm/Dextrose 275 ml @ 183.708 mls/hr Q8H IVPB 08/05/18 11:00 08/10/18 10:59 08/05/18 10:39 Vitamin D (Vitamin D) 2,000 intlu DAILY ORAL 08/03/18 09:00 09/02/18 08:59 08/05/18 08:37 Zolpidem Tartrate (Ambien) 5 mg BEDTIME PRN ORAL Insomnia 08/02/18 23:30 08/09/18 23:29 08/04/18 21:44 Last 24 Hour Vital Signs Date Time Temp Pulse Resp B/P (MAP) Pulse Ox O2 Delivery O2 Flow Rate FiO2 08/05/18 13:14 97.4 08/05/18 12:00 98.0 71 17 135/86 (102) 98 08/05/18 10:43 97.4 08/05/18 08:06 Room Air 08/05/18 08:00 97.4 85 16 132/89 (103) 99 08/05/18 04:00 97.4 72 18 119/83 (95) 99 08/05/18 00:00 97.9 80 20 134/84 (101) 94 08/04/18 21:00 Room Air 08/04/18 20:00 98.1 95 18 108/73 (85) 97 08/04/18 16:00 97.1 87 18 132/78 (96) 97 08/04/18 12:00 98.7 92 21 129/92 (104) 97 08/04/18 09:00 Room Air 08/04/18 08:00 98.3 83 19 141/81 (101) 97 08/04/18 04:00 97.8 79 18 111/72 (85) 98 08/04/18 00:00 98.3 81 18 127/85 (99) 98 08/03/18 21:00 Room Air 08/03/18 20:00 98.7 93 18 139/84 (102) 97 08/03/18 16:00 99.3 101 18 108/70 (83) 97 Intake and Output 08/04/18 08/05/18 19:00 07:00 Intake Total 1400 ml 866.666 ml Balance 1400 ml 866.666 ml Intake Oral 600 ml 500 ml IV Total 366.666 ml Other 800 ml Labs Test 08/03/18 06:42 08/05/18 09:00 White Blood Count 4.5 K/UL (4.8-10.8) Red Blood Count 3.88 M/UL (4.20-5.40) Hemoglobin 10.3 G/DL (12.0-16.0) Hematocrit 32.2 % (37.0-47.0) Mean Corpuscular Volume 83 FL (80-99) Mean Corpuscular Hemoglobin 26.4 PG (27.0-31.0) Mean Corpuscular Hemoglobin Concent 31.9 G/DL (32.0-36.0) Red Cell Distribution Width 15.4 % (11.6-14.8) Platelet Count 368 K/UL (150-450) Mean Platelet Volume 5.3 FL (6.5-10.1) Neutrophils (%) (Auto) 64.4 % (45.0-75.0) Lymphocytes (%) (Auto) 25.5 % (20.0-45.0) Monocytes (%) (Auto) 7.2 % (1.0-10.0) Eosinophils (%) (Auto) 0.9 % (0.0-3.0) Basophils (%) (Auto) 1.9 % (0.0-2.0) Sodium Level 138 MMOL/L (136-145) Potassium Level 3.8 MMOL/L (3.5-5.1) Chloride Level 104 MMOL/L (98-107) Carbon Dioxide Level 26 MMOL/L (21-32) Anion Gap 8 mmol/L (5-15) Blood Urea Nitrogen 13 mg/dL (7-18) Creatinine 0.7 MG/DL (0.55-1.30) Estimat Glomerular Filtration Rate > 60 mL/min (>60) Glucose Level 127 MG/DL (74-106) Calcium Level 8.5 MG/DL (8.5-10.1) Total Bilirubin < 0.1 MG/DL (0.2-1.0) Aspartate Amino Transf (AST/SGOT) 18 U/L (15-37) Alanine Aminotransferase (ALT/SGPT) 30 U/L (12-78) Alkaline Phosphatase 137 U/L (46-116) Total Protein 7.0 G/DL (6.4-8.2) Albumin 2.6 G/DL (3.4-5.0) Globulin 4.4 g/dL Albumin/Globulin Ratio 0.6 (1.0-2.7) Vancomycin Level Trough 5.3 ug/mL (5.0-12.0) Height (Feet): 5 Height (Inches): 4.00 Weight (Pounds): 158 Objective PHYSICAL EXAM General Appearance: alert, GCS 15, Chronically Ill Head: other - craniotomy site C/D/I ENT: hearing grossly normal Neck: limited range of motion Respiratory: chest non-tender, lungs clear Cardiovascular #1: normal inspection, regular rate, rhythm Gastrointestinal: normal inspection, non tender Genitourinary: normal inspection Neurologic: alert, oriented x3, responsive, motor weakness - right upper extremity 4/5, some tremor Fred Zhang MD Aug 05, 2018 15:24
[2018-08-05 16:00] VITALS: BP 119/84
--- NOTE | 2018-08-05 19:02 | NUR ---
NURSE NOTES: asleep. in no apparent distress.
--- NOTE | 2018-08-05 19:02 | NUR ---
HAND-OFF: Report given to LEANN ALFRED.
--- NOTE | 2018-08-05 19:49 | NUR ---
NURSE NOTES: Pt received in bed at lowest position, asleep, call light within reach, no signs of distress, pt able to make needs known, will continue to monitor.
[2018-08-05 20:00] VITALS: BP 129/94
[2018-08-05] MEDS: Milk of Magnesia 30ml Ud ORAL SCH (20:42)
--- NOTE | 2018-08-05 21:39 | General Progress Note ---
Assessment/Plan Problem List: (1) Seizure ICD Codes: R56.9 - Unspecified convulsions SNOMED: 74154015, 72216476, 423615933 (2) Bony metastasis ICD Codes: C79.51 - Secondary malignant neoplasm of bone SNOMED: 17313838 (3) Brain metastasis ICD Codes: C79.31 - Secondary malignant neoplasm of brain SNOMED: 82782231 (4) Intractable back pain ICD Codes: M54.9 - Dorsalgia, unspecified SNOMED: 129670357 (5) Metastatic breast cancer ICD Codes: C50.919 - Malignant neoplasm of unspecified site of unspecified female breast SNOMED: 965922618, 210769918 (6) Hx of breast cancer ICD Codes: Z85.3 - Personal history of malignant neoplasm of breast SNOMED: 437030707 Status: progressing Assessment/Plan: intractable pain is improving pain management per dr zheng team afebrile vitals stable Subjective ROS Limited/Unobtainable: Yes Allergies: Coded Allergies: No Known Allergies (Unverified , 08/02/18) Objective Last 24 Hour Vital Signs Date Time Temp Pulse Resp B/P (MAP) Pulse Ox O2 Delivery O2 Flow Rate FiO2 08/05/18 21:00 Room Air 08/05/18 20:00 97.7 85 19 129/94 (106) 99 08/05/18 18:24 97.4 08/05/18 17:41 97.4 08/05/18 16:00 97.7 78 16 119/84 (96) 98 08/05/18 12:00 98.0 71 17 135/86 (102) 98 08/05/18 08:06 Room Air 08/05/18 08:00 97.4 85 16 132/89 (103) 99 08/05/18 04:00 97.4 72 18 119/83 (95) 99 08/05/18 00:00 97.9 80 20 134/84 (101) 94 Intake and Output 08/04/18 08/05/18 19:00 07:00 Intake Total 1400 ml 866.666 ml Balance 1400 ml 866.666 ml Intake Oral 600 ml 500 ml IV Total 366.666 ml Other 800 ml Laboratory Tests 08/05/18 09:00: Vancomycin Level Trough 5.3 Height (Feet): 5 Height (Inches): 4.00 Weight (Pounds): 158 Neck: supple Cardiovascular: normal rate Respiratory/Chest: lungs clear Abdomen: soft Tawana Ordaz MD Aug 05, 2018 21:39
--- NOTE | 2018-08-05 23:30 | Consultation ---
DATE OF CONSULTATION: 08/05/2018 INFECTIOUS DISEASES CONSULTATION CONSULTING PHYSICIAN: Gene Cosme M.D. PRIMARY ATTENDING PHYSICIAN: Tawana Ordaz M.D. REASON FOR CONSULTATION: Brain abscess, VRE colonization. HISTORY OF PRESENT ILLNESS: This is a 37-year-old female, who has metastatic brain cancer and was recently hospitalized in [facility] with brain abscess, was admitted on 02 of August complaining of back pain. The patient had recent history of craniotomy in [facility] for abscess, received antibiotic with vancomycin and Flagyl for already two weeks, but she should continue antibiotic for two more weeks. PAST MEDICAL HISTORY: Metastatic breast cancer discovered couple of months ago. Breast cancer was metastasized to the brain. She has a history of left-sided craniotomy, also is metastatic to the spine and bones. The patient has anemia, left eye vision loss that initially was total, just getting some vision back in the left eye. ALLERGIES: No known drug allergies. MEDICATIONS: Vancomycin, clonazepam, magnesium hydroxide, dexamethasone, Protonix, Flagyl, methadone, hydromorphone, pregabalin, naloxone, vitamin D, Trusopt, Lovenox, Keppra, lorazepam, nystatin, Tylenol, polyethylene glycol, and Ambien. SOCIAL HISTORY: No alcohol, drug abuse, or smoking. She has a history of incarceration, have three kids, single, has history of breast cancer in the family, in an aunt. REVIEW OF SYSTEMS: No fever. No chills. Has decreased vision in the left eye. No significant coughing. No nausea. No vomiting. No diarrhea. Has weakness in the right arm. Back pain is controlled for now. PHYSICAL EXAMINATION: VITAL SIGNS: Temperature 97.4, pulse 85, blood pressure 132/89. GENERAL APPEARANCE: No acute distress. HEAD AND NECK: There is scar of craniotomy near midline in the left side. Has decreased vision in the left eye. HEART: Normal rate. LUNGS: Clear. ABDOMEN: Soft, nontender. BREASTS: No significant mass EXTREMITY: Has no edema. left arm midline. LABORATORY AND DIAGNOSTIC DATA: WBC 4.5, hemoglobin 10.3, hematocrit 32.3, and platelets are 368. Sodium 138, potassium 3.8, chloride 104, bicarb 26, BUN 13, creatinine 0.7. Alkaline phosphatase is 137. CT scan of the spine showed pathologic fracture into T2, T6, and L5. Also showed numerous lytic spinal lesions. CT scan of the pelvis showed no fracture, but multiple lytic spinal lesions. Screening test for VRE was positive. IMPRESSION: 1. 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 3. Multiple pathologic fracture in thoracic and lumbar spine. 4. Metastatic breast cancer according to the patient it was originated from right breast. The patient gets Ibrance and anastrozole initially, now getting just anastrozole, get also radiation. 5. Metastatic brain lesion, had surgery. 6. Anemia of chronic disease. RECOMMENDATION: We will continue with vancomycin and Flagyl in hospital. We will keep the patient isolated in the hospital. At the time of discharge, remove isolation. Prognosis is poor and the patient is DNR.At end of my consult I thank Dr Ordaz for involving me in care of this patient. Gene Cosme M.D. DR: FRANCISCA JOB#: [id number] CC: [place]
[2018-08-06] VITALS: BP 131/92
[2018-08-06] MEDS: Vancomycin 1gm/D5W 275ml IVPB SCH ×4 (03:27→11:08)
[2018-08-06 04:00] VITALS: BP 105/70
[2018-08-06] MEDS: metroNIDAZOLE 500mg tab ORAL SCH ×3 (06:05→21:28)
[2018-08-06] MEDS: clonazePAM 0.5mg tab ORAL SCH ×3 (06:05→16:01)
--- NOTE | 2018-08-06 06:30 | NUR ---
NURSE NOTES: PT COMPLAINED OF LEFT ANKLE PAIN. STARTED WHEN SHE GOT UP TO USE THE COMMODE THIS MORNING. NO SWELLING PRESENT, PAINFUL TO TOUCH AND WARM TO TOUCH. CLAUDIA'S SIGN PRESENT. NOTIFIED. RECEIVED ORDER FOR XRAY STAT. WILL FOLLOW UP.
--- NOTE | 2018-08-06 07:26 | NUR ---
HAND-OFF: Report given to TIMA Mcginnis.
--- NOTE | 2018-08-06 07:56 | NUR ---
NURSE NOTES: Patient received in stable condition, resting in bed. Alert and oriented, breathing unlabored on room air. Denies pain at this time. IV mid line observed on left arm, saline lock. Bed locked in lowest position, call light placed within reach. Will continue to monitor.
[2018-08-06 08:00] VITALS: BP 122/80
[2018-08-06] MEDS: Anastrazole 1mg tab ORAL SCH (08:31)
[2018-08-06] MEDS: Naloxegol Oxalate 25mg tab ORAL SCH (08:31)
[2018-08-06] MEDS: LORazepam 0.5mg tab ORAL SCH ×3 (08:31→18:35)
[2018-08-06] MEDS: Bisacodyl EC 5mg tab ORAL SCH (08:32)
[2018-08-06] MEDS: Lyrica 75mg cap ORAL SCH ×3 (08:32→18:34)
[2018-08-06] MEDS: Nystatin Susp 500,000 units/5ml ORAL SCH ×4 (08:32→21:35)
[2018-08-06] MEDS: Vitamin D 1000 IU Tab ORAL SCH (08:32)
[2018-08-06] MEDS: Enoxaparin 40mg Inj SUBQ SCH (08:49)
--- NOTE | 2018-08-06 08:49 | General Progress Note ---
Assessment/Plan Status: progressing Assessment/Plan: (1) Metastatic breast cancer to bone (2) Intractable pain Patient will be continued on Methadone Lyrica and Dilaudid. D/w Dr. Choi and he concurred. Subjective Date patient seen: Aug 06, 2018 Time patient seen: 07:15 - am Allergies: Coded Allergies: No Known Allergies (Unverified , 08/02/18) Subjective REVIEW OF SYSTEMS: Denies rash, fever, chills, sweating, dizziness, blurred vision, sore throat, or change in her weight. No shortness of breath or chest pain. No nausea, vomiting, diarrhea, blood in the stool or urine. No bowel or bladder incontinence. No dysuria. She is complaining of back pain and chest wall pain. SUBJECTIVE: Patient reports that the pain continues to be tolerated on the Dilaudid and Methadone. No new complaints at this time. Objective Last 24 Hour Vital Signs Date Time Temp Pulse Resp B/P (MAP) Pulse Ox O2 Delivery O2 Flow Rate FiO2 08/06/18 04:00 97.2 79 19 105/70 (82) 98 08/06/18 00:00 97.2 90 19 131/92 (105) 99 08/05/18 21:00 Room Air 08/05/18 20:00 97.7 85 19 129/94 (106) 99 08/05/18 18:24 97.4 08/05/18 17:41 97.4 08/05/18 16:00 97.7 78 16 119/84 (96) 98 08/05/18 12:00 98.0 71 17 135/86 (102) 98 Intake and Output 08/05/18 08/06/18 18:59 06:59 Intake Total 1525 ml 1067.416 ml Balance 1525 ml 1067.416 ml Intake Oral 1250 ml 700 ml IV Total 275 ml 367.416 ml # Voids 5 # Bowel Movements 1 Laboratory Tests 08/05/18 09:00: Vancomycin Level Trough 5.3 Height (Feet): 5 Height (Inches): 4.00 Weight (Pounds): 158 Objective GENERAL: Alert, awake, oriented. LUNGS: Decreased breath sounds bilaterally. HEART: S1 and S2 regular. ABDOMEN: Soft and nontender. EXTREMITIES: No cyanosis. No clubbing. NEURO: No changes. Procedure: CT T Spine no Contrast EXAM: CT Thoracic Spine Without Intravenous Contrast CLINICAL HISTORY: MASS TECHNIQUE: Axial computed tomography images of the thoracic spine without intravenous contrast. CTDI is 22.0 2 mGy and DLP is 722.2 mGy-cm. One or more of the following dose reduction techniques were used: automated exposure control, adjustment of the mA and/or kV according to patient size, use of iterative reconstruction technique. COMPARISON: No relevant prior studies available. FINDINGS: Vertebrae: Diffuse lytic lesions consistent with multiple myeloma or metastasis. Pathologic fracture involving the superior endplate of T2 and the inferior endplate of T6. No retropulsion. Discs/spinal canal/neural foramina: No acute process. Lungs: Bilateral consolidative atelectasis. Pleural space: Trace left pleural effusion. Heart: Cardiomegaly. Thyroid: 9 mm nodule in the right lobe of the thyroid gland. IMPRESSION: Diffuse lytic lesions consistent with multiple myeloma or metastasis. Pathologic fracture involving the superior endplate of T2 and the inferior endplate of T6. No retropulsion. Procedure: CT L Spine no Contrast EXAM: CT Lumbar Spine Without Intravenous Contrast CLINICAL HISTORY: MASS TECHNIQUE: Axial computed tomography images of the lumbar spine without intravenous contrast. CTDI is 13.86 mGy and DLP is 342.27 mGy-cm. One or more of the following dose reduction techniques were used: automated exposure control, adjustment of the mA and/or kV according to patient size, use of iterative reconstruction technique. COMPARISON: No relevant prior studies available. FINDINGS: Vertebrae: Diffuse lytic lesions consistent with metastasis or multiple myeloma. Pathologic fracture in the interim endplate of L5. No retropulsion. Discs/spinal canal/neural foramina: No acute process. Soft tissues: Subcutaneous edema in the back. IMPRESSION: Diffuse lytic lesions consistent with metastasis or multiple myeloma. Pathologic fracture in the interim endplate of L5. No retropulsion. Procedure: CT Pelvis no Contrast EXAM: CT Pelvis Without Intravenous Contrast CLINICAL HISTORY: MASS TECHNIQUE: Axial computed tomography images of the pelvis without intravenous contrast. CTDI is 12.29 mGy and DLP is 333 mGy-cm. One or more of the following dose reduction techniques were used: automated exposure control, adjustment of the mA and/or kV according to patient size, use of iterative reconstruction technique. COMPARISON: No relevant prior studies available. FINDINGS: Intraperitoneal space: Small amount of fluid in the pelvis. Bladder: Unremarkable. Reproductive: Unremarkable. Bones/joints: No acute fracture or dislocation. Numerous lytic lesions in the osseous structures suggesting metastasis or multiple myeloma. Soft tissues: Subcutaneous edema in the back. Vasculature: Unremarkable. No lower abdominal aortic aneurysm. Lymph nodes: No enlarged lymph nodes. IMPRESSION: 1. No acute fracture or dislocation. 2. Numerous lytic lesions in the osseous structures suggesting metastasis or multiple myeloma. Ernesto Avila Aug 06, 2018 08:49
[2018-08-06] MEDS: Dorzolamide 2% 10ml Btl LEFT EYE SCH ×2 (09:00→18:34)
--- NOTE | 2018-08-06 11:13 | Neurology Progress Note ---
Interim History Interim History ROS Limited/Unobtainable: Yes Complaints: Back Pain/ Met Breast Ca Events: Ongoing improvement with pain and deficits, vision improving Interim History This visit was performed on August 05, [address] Rodríguez Flaherty. Review of Systems All Systems: reviewed and negative except above Objective Physical Exam Last Vital Signs Date Time Temp Pulse Resp B/P (MAP) Pulse Ox O2 Delivery O2 Flow Rate FiO2 08/06/18 09:00 Room Air 08/06/18 08:00 97.5 81 17 122/80 (94) 98 Laboratory Tests Test 08/06/18 10:15 Vancomycin Level Trough Pending General: well developed, well nourished Neck: no rigidity EENT: benign Neurologic Exam Mental Status: awake, alert, oriented x4, normal cognition, good mathematical skills, normal recent memory, normal remote memory, preserved visuospatial function, other Speech: normal speech, other Language: normal language Cranial Nerve II: fundus normal, other Cranial Nerves III, IV, : other Cranial Nerve V: normal facial sensations, masseters function normal, pterygoids function normal Cranial Nerve VII: other Cranial Nerve VIII: other Cranial Nerve IX: normal palate elevation, gag response Cranial Nerve X: no voice hoarseness Cranial Nerve XI: SCM symmetric, trapezii function normal Cranial Nerve XII: tongue midline, no tongue atrophy/fasciculations Motor System: normal muscle tone, no involuntary movement, no muscle wasting Sensory: normal pinprick, normal light touch, normal position sense, normal graphesthesia Coordination: other Gait: other Objective 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 Also with vision loss improving in this eye following recommencement of Dexamethasone. Impression/Recommendations Problems: (1) Vision loss, right eye (2) Muscle right arm weakness (3) Seizure prophylaxis Assessment & Plan: Continue home dosage of Keppra at this time. Patient denies ever having had a seizure. (4) Brain metastasis (5) Bony metastasis (6) Metastatic breast cancer (7) Seizure (8) Hx of breast cancer (9) Intractable back pain Assessment & Plan: Agree with Methadone conversion. Continue Lyrica as per protocol- no need for dose increases Keppra to continue without change of dose Dexamethasone to continue at 2mg BID . Recommend MRI T/L Spine, Right Hip imaging - query kenny mets MRI Brain w/ w/o contrast for Brain Mets, assessment of edema, mets, or abscess recurrence. Discussed importance of conversion to oral meds as well as coordinating palliative therapies such as Radiation Oncology to painful spinal mets . In the meantime, no indication to raise dose of any neuroleptics or anti spasm drugs, although it is likely that the patient will need these as an outpatient for pain control given the extent of her metastatic disease. Status: progressing Recommendations Continue AED ppx and Q4 hour neuro obs Plan D/C and treatment follow up with Heme/Onc Continue Dexamethasone 2mg BID and patient will need to follow up with neuro ( Neurologist, neurooncologist, oncologist) as outpatient for management of dexamethasone and reassessment of brain mets for possible radiation Indira Gonzalez N.P. Aug 06, 2018 11:13
--- NOTE | 2018-08-06 11:23 | General Progress Note ---
Assessment/Plan Problem List: (1) Seizure ICD Codes: R56.9 - Unspecified convulsions SNOMED: 16383967, 81361877, 522624296 (2) Bony metastasis ICD Codes: C79.51 - Secondary malignant neoplasm of bone SNOMED: 72571308 (3) Brain metastasis ICD Codes: C79.31 - Secondary malignant neoplasm of brain SNOMED: 91480393 (4) Intractable back pain ICD Codes: M54.9 - Dorsalgia, unspecified SNOMED: 708214420 (5) Metastatic breast cancer ICD Codes: C50.919 - Malignant neoplasm of unspecified site of unspecified female breast SNOMED: 362978072, 901845960 (6) Hx of breast cancer ICD Codes: Z85.3 - Personal history of malignant neoplasm of breast SNOMED: 064996549 Status: progressing Assessment/Plan: intractable pain is improving pain management per dr zheng team sepsis mets breast cancer to bone pain meds per dr zheng reviewed chart and labs Subjective ROS Limited/Unobtainable: Yes Allergies: Coded Allergies: No Known Allergies (Unverified , 08/02/18) Objective Last 24 Hour Vital Signs Date Time Temp Pulse Resp B/P (MAP) Pulse Ox O2 Delivery O2 Flow Rate FiO2 08/06/18 09:00 Room Air 08/06/18 08:00 97.5 81 17 122/80 (94) 98 08/06/18 04:00 97.2 79 19 105/70 (82) 98 08/06/18 00:00 97.2 90 19 131/92 (105) 99 08/05/18 21:00 Room Air 08/05/18 20:00 97.7 85 19 129/94 (106) 99 08/05/18 18:24 97.4 08/05/18 17:41 97.4 08/05/18 16:00 97.7 78 16 119/84 (96) 98 08/05/18 12:00 98.0 71 17 135/86 (102) 98 Intake and Output 08/05/18 08/06/18 19:00 07:00 Intake Total 1525 ml 1067.416 ml Balance 1525 ml 1067.416 ml Intake Oral 1250 ml 700 ml IV Total 275 ml 367.416 ml # Voids 5 # Bowel Movements 1 Laboratory Tests 08/06/18 10:15: Vancomycin Level Trough 13.6H Height (Feet): 5 Height (Inches): 4.00 Weight (Pounds): 158 Cardiovascular: normal rate Respiratory/Chest: lungs clear Tawana Ordaz MD Aug 06, 2018 11:23
[2018-08-06] MEDS ORDERED: Heparin1,000 units/500ml Premix(Conc:2 units/ml) IV PRN (11:30)
[2018-08-06] MEDS ORDERED: Lidocaine 1% Plain 30 ml INJ PRN (11:33)
[2018-08-06 12:00] VITALS: BP 130/79
--- NOTE | 2018-08-06 14:11 | Infectious Diseases Prog Note ---
Assessment/Plan Assessment/Plan IMPRESSION: 1. 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 3. Multiple pathologic fracture in thoracic and lumbar spine. 4. Metastatic breast cancer according to the patient it was originated from right breast. The patient gets Ibrance and anastrozole initially, now getting just anastrozole, get also radiation. 5. Metastatic brain lesion, had surgery. 6. Anemia of chronic disease. RECOMMENDATION: We will continue with vancomycin and Flagyl Agree with discharge after PICC line replacement Subjective ROS Limited/Unobtainable: No Constitutional: Reports: no symptoms Respiratory: Reports: no symptoms Cardiovascular: Reports: other - midline is coming out Gastrointestinal/Abdominal: Reports: no symptoms Genitourinary: Reports: no symptoms Allergies: Coded Allergies: No Known Allergies (Unverified , 08/02/18) Objective Vital Signs Last 24 Hour Vital Signs Date Time Temp Pulse Resp B/P (MAP) Pulse Ox O2 Delivery O2 Flow Rate FiO2 08/06/18 09:00 Room Air 08/06/18 08:00 97.5 81 17 122/80 (94) 98 08/06/18 04:00 97.2 79 19 105/70 (82) 98 08/06/18 00:00 97.2 90 19 131/92 (105) 99 08/05/18 21:00 Room Air 08/05/18 20:00 97.7 85 19 129/94 (106) 99 08/05/18 18:24 97.4 08/05/18 17:41 97.4 08/05/18 16:00 97.7 78 16 119/84 (96) 98 Height (Feet): 5 Height (Inches): 4.00 Weight (Pounds): 158 General Appearance: no acute distress HEENT: mucous membranes moist Respiratory/Chest: lungs clear Cardiovascular: normal rate, other - left arm midline, partially out Abdomen: soft, non tender Extremities: no edema Neurologic/Psychiatric: alert, oriented x 3, responsive Laboratory Tests Test 08/06/18 10:15 Vancomycin Level Trough 13.6 ug/mL (5.0-12.0) H Current Medications Medications (Trade) Dose Ordered Sig/Rahul Route PRN Reason Start Time Stop Time Status Last Admin Dose Admin Acetaminophen (Tylenol) 500 mg Q4HR PRN ORAL TEMPERATURE GREATER THAN 100.4 08/03/18 01:00 09/02/18 00:59 Acetaminophen (Tylenol) 500 mg Q6H PRN ORAL Mild Pain (Pain Scale 1-3) 08/02/18 23:30 09/01/18 23:29 Anastrozole (Arimidex) 1 mg DAILY ORAL 08/03/18 09:00 09/02/18 08:59 08/06/18 08:31 Bisacodyl (Dulcolax) 10 mg DAILY RECTAL 08/03/18 09:00 09/02/18 08:59 08/06/18 08:32 Bisacodyl (Dulcolax) 15 mg DAILY ORAL 08/03/18 09:00 09/02/18 08:59 08/06/18 08:32 Chlorhexidine Gluconate (Shirley-Hex 2%) 1 applic DAILY@2000 TOPIC 08/06/18 20:00 09/05/18 19:59 Clonazepam (KlonoPIN) 0.5 mg Q6H ORAL 08/04/18 17:00 08/11/18 16:59 08/06/18 11:08 Dexamethasone (Decadron) 2 mg BID ORAL 08/03/18 18:00 09/02/18 17:59 08/06/18 08:32 Dorzolamide HCl (Trusopt) 1 drop BID LEFT EYE 08/03/18 09:00 09/02/18 08:59 08/06/18 09:00 Enoxaparin Sodium (Lovenox) 40 mg DAILY SUBQ 08/03/18 09:00 09/02/18 08:59 08/06/18 08:49 Gadobutrol (Gadavist) 7.5 mmol NOW PRN IV Radiology Procedure 08/03/18 16:00 08/07/18 15:50 Heparin Sodium/ Sodium Chloride (Heparin 1000 units/500ml Premix) 1,000 unit ONCE PRN IV PICC 08/06/18 11:30 08/06/18 23:59 Hydromorphone HCl (Dilaudid) 2 mg Q3H PRN IVP Severe Pain (Pain Scale 7-10) 08/03/18 09:45 08/10/18 09:44 08/06/18 06:47 Levetiracetam (Keppra) 500 mg EVERY 12 HOURS ORAL 08/03/18 09:00 6/30/19 08:59 08/06/18 08:31 Lidocaine (Lidoderm 5% PATCH) 2 patch DAILY TDERMAL 08/06/18 09:15 09/05/18 09:14 Lidocaine HCl (Xylocaine 1% 30ml) 30 ml ONCE PRN INJ PICC 08/06/18 11:33 08/06/18 23:59 Lorazepam (Ativan) 0.5 mg THREE TIMES A DAY ORAL 08/03/18 09:00 08/10/18 08:59 08/06/18 08:31 Magnesium Hydroxide (Mom) 30 ml BEDTIME ORAL 08/03/18 21:00 09/02/18 20:59 08/05/18 20:42 Methadone HCl (Methadone HCl) 10 mg Q6HR ORAL 08/03/18 12:00 08/10/18 09:44 08/06/18 11:08 Metronidazole (Flagyl) 500 mg Q8HR ORAL 08/03/18 14:00 08/15/18 13:59 08/06/18 06:05 Naloxegol (Movantik) 25 mg DAILY ORAL 08/04/18 09:00 09/03/18 08:59 08/06/18 08:31 Naloxone HCl (Narcan) 0.2 mg Q2M PRN IVP respritory distress (RR<12) 08/03/18 09:45 09/02/18 09:44 Nystatin (Nystatin) 5 ml FOUR TIMES A DAY ORAL 08/03/18 09:00 08/10/18 08:59 08/06/18 08:32 Pantoprazole (Protonix) 40 mg DAILY ORAL 08/03/18 15:00 09/02/18 14:59 08/06/18 08:32 Polyethylene Glycol (Miralax) 17 gm BEDTIME PRN ORAL Constipation 08/02/18 23:30 09/01/18 23:29 Pregabalin (Lyrica) 75 mg THREE TIMES A DAY ORAL 08/03/18 09:45 09/02/18 09:44 08/06/18 08:32 Vancomycin HCl (Vanco rx to dose) 1 ea DAILY PRN MISC PER PHARMACY 08/04/18 13:45 09/03/18 13:44 Vancomycin HCl/ Dextrose 275 ml @ 183.333 mls/hr Q8H IVPB 08/06/18 18:00 08/11/18 17:59 Vitamin D (Vitamin D) 2,000 intlu DAILY ORAL 08/03/18 09:00 09/02/18 08:59 08/06/18 08:32 Zolpidem Tartrate (Ambien) 5 mg BEDTIME PRN ORAL Insomnia 08/02/18 23:30 08/09/18 23:29 08/04/18 21:44 Gene Cosme MD Aug 06, 2018 14:11
--- NOTE | 2018-08-06 15:03 | NUR ---
NURSE NOTES: Patient's mid line dislodged earlier this am around 1045. Primary Dr. Ordaz made aware. ID Dr. Cosme made aware, per MD the patient must continue Vancomycin IV for [address] Cosme ordered stat PICC line placement around 1100. Per radiology, PICC line placement cannot be done today as there is no availability in schedule. PMD Orlin made aware. Patient agreed to have regular IV inserted in the interim until PiCC line can be placed tomorrow.
--- NOTE | 2018-08-06 15:22 | NUR ---
*-* INSURANCE *-* ALL CLINICALS AND REVIEWS HAVE BEEN FAXED: LEONOR MONAHAN P: [phone] F: [phone]
--- NOTE | 2018-08-06 15:31 | NUR ---
DISCHARGE PLANNED [facility] ROOM [address] SHELTER T [phone] FOR NURSE TO NURSE REPORT [facility] WILL INSULATOR CUTTER AND FORMER AT 1530 Addendum: 08/07/18 at 1715 by Hanane Diggs LVN PATIENT HAD PICC LINE PLACED YESTERDAY SO DC WAS CANCELLED BUT SPOKE WITH MEGA AT [facility] AND PT WILL BE ACCEPTED IN ROOM 230A WHENEVER MEDICALLY CLEARED
[2018-08-06 16:00] VITALS: BP 128/83
[2018-08-06] MEDS: Vancomycin 1.25gm Premix IVPB SCH (18:35)
--- NOTE | 2018-08-06 18:54 | Hematology/Onc Progress Note ---
Assessment/Plan Assessment/Plan ASSESSMENT AND PLAN: # Metastatic breast cancer with visceral mets, to the spine as well as the brain , in regards to her treatment, she was diagnosed approximately 3 months ago, has seen several doctors at [facility], has been initialy on ibrance and anastrozaole, the ibrance has since been discontinued, she is at this time only on anastrazole, and she has been getting lupron treatment once a month as well, she is also very likely BRCA ++ because she has 3 grandma siblings (3 great aunts) and also an aunt of her grandma who had all breast cancer at a young age , she has 2 young kids --> at this time, continue anastrazole 1mg po daily --> continue lupron once a month as well --> prognosis unfortunately is poor given brain mets --> neuro eval to see if disease is worse, to get mri of the brain and spine as well --> she is to see rad onc as an outpatient as well --> she is to see medical oncology as outpatient --> to get testing for BRCA as well given she has 2 young kids, has three great aunts with breast cancer as well as a grandmas aunt at a young age --> unfortunately prognosis is poor for this young lady --> 08/04 imaging: multiple CT imaging suggest of metastasis # Decreased white blood cell count, unspec (aka leukopenia) - wbc under 4.5k, could be related to infection v splenomegaly v meds, could be due to chemo --> if the total ANC is less than 2000, may consider neupogen --> continue antibiotics with ID service, appreciate recs --> medications have been reviewed --> hepatitis and hiv have been ordered --> CT of abd/spine show multiple mets # Anemia of chronic disease (or of iron deficiency) due to underlying chronic medical issues, multifactorial --> Anemia workup has been ordered, rule out gi bleed --> No evidence of hemolysis is noted, peripheral smear has been reviewed. --> Hgb goal >7. Transfuse prn. --> Epogen or iron at this time is not particularly indicated --> Medications have been reviewed --> low threshold for gi evaluation in case has occult + --> bone marrow biopsy is not indicated given the other more likely causes # Vision Loss, Right eye # Seizure ppx. Continue home dosage of Keppra at this time. Patient denies ever having had a seizure. # Intractable back pain. The time note is entered does not reflect time patient was examined. GREATLY APPRECIATE CONSULTATION. Subjective Allergies: Coded Allergies: No Known Allergies (Unverified , 08/02/18) Subjective 08/05: Pt awake and alert. No signs acute distress. Several CT imaging reviewed, shows metastasis. Pt with poor prognosis. 08/06: Pt in bed reports pain is tolerated, no acute events Objective Objective Current Medications Medications (Trade) Dose Ordered Sig/Rahul Route PRN Reason Start Time Stop Time Status Last Admin Dose Admin Acetaminophen (Tylenol) 500 mg Q4HR PRN ORAL TEMPERATURE GREATER THAN 100.4 08/03/18 01:00 09/02/18 00:59 Acetaminophen (Tylenol) 500 mg Q6H PRN ORAL Mild Pain (Pain Scale 1-3) 08/02/18 23:30 09/01/18 23:29 Anastrozole (Arimidex) 1 mg DAILY ORAL 08/03/18 09:00 09/02/18 08:59 08/06/18 08:31 Bisacodyl (Dulcolax) 10 mg DAILY RECTAL 08/03/18 09:00 09/02/18 08:59 08/06/18 08:32 Bisacodyl (Dulcolax) 15 mg DAILY ORAL 08/03/18 09:00 09/02/18 08:59 08/06/18 08:32 Chlorhexidine Gluconate (Shirley-Hex 2%) 1 applic DAILY@2000 TOPIC 08/06/18 20:00 09/05/18 19:59 Clonazepam (KlonoPIN) 0.5 mg Q6H ORAL 08/04/18 17:00 08/11/18 16:59 08/06/18 16:01 Dexamethasone (Decadron) 2 mg BID ORAL 08/03/18 18:00 09/02/18 17:59 08/06/18 18:34 Dorzolamide HCl (Trusopt) 1 drop BID LEFT EYE 08/03/18 09:00 09/02/18 08:59 08/06/18 18:34 Enoxaparin Sodium (Lovenox) 40 mg DAILY SUBQ 08/03/18 09:00 09/02/18 08:59 08/06/18 08:49 Gadobutrol (Gadavist) 7.5 mmol NOW PRN IV Radiology Procedure 08/03/18 16:00 08/07/18 15:50 Heparin Sodium/ Sodium Chloride (Heparin 1000 units/500ml Premix) 1,000 unit ONCE PRN IV PICC 08/06/18 11:30 08/06/18 23:59 Hydromorphone HCl (Dilaudid) 2 mg Q3H PRN IVP Severe Pain (Pain Scale 7-10) 08/03/18 09:45 08/10/18 09:44 08/06/18 16:02 Levetiracetam (Keppra) 500 mg EVERY 12 HOURS ORAL 08/03/18 09:00 09/02/18 08:59 08/06/18 08:31 Lidocaine (Lidoderm 5% PATCH) 2 patch DAILY TDERMAL 08/06/18 09:15 09/05/18 09:14 Lidocaine HCl (Xylocaine 1% 30ml) 30 ml ONCE PRN INJ PICC 08/06/18 11:33 08/06/18 23:59 Lorazepam (Ativan) 0.5 mg THREE TIMES A DAY ORAL 08/03/18 09:00 08/10/18 08:59 08/06/18 18:35 Magnesium Hydroxide (Mom) 30 ml BEDTIME ORAL 08/03/18 21:00 09/02/18 20:59 08/05/18 20:42 Methadone HCl (Methadone HCl) 10 mg Q6HR ORAL 08/03/18 12:00 08/10/18 09:44 08/06/18 18:34 Metronidazole (Flagyl) 500 mg Q8HR ORAL 08/03/18 14:00 08/15/18 13:59 08/06/18 14:08 Naloxegol (Movantik) 25 mg DAILY ORAL 08/04/18 09:00 09/03/18 08:59 08/06/18 08:31 Naloxone HCl (Narcan) 0.2 mg Q2M PRN IVP respritory distress (RR<12) 08/03/18 09:45 09/02/18 09:44 Nystatin (Nystatin) 5 ml FOUR TIMES A DAY ORAL 08/03/18 09:00 08/10/18 08:59 08/06/18 18:46 Pantoprazole (Protonix) 40 mg DAILY ORAL 08/03/18 15:00 09/02/18 14:59 08/06/18 08:32 Polyethylene Glycol (Miralax) 17 gm BEDTIME PRN ORAL Constipation 08/02/18 23:30 09/01/18 23:29 Pregabalin (Lyrica) 75 mg THREE TIMES A DAY ORAL 08/03/18 09:45 09/02/18 09:44 08/06/18 18:34 Vancomycin HCl (Vanco rx to dose) 1 ea DAILY PRN MISC PER PHARMACY 08/04/18 13:45 09/03/18 13:44 Vancomycin HCl/ Dextrose 275 ml @ 183.333 mls/hr Q8H IVPB 08/06/18 18:00 08/11/18 17:59 08/06/18 18:35 Vitamin D (Vitamin D) 2,000 intlu DAILY ORAL 08/03/18 09:00 09/02/18 08:59 08/06/18 08:32 Zolpidem Tartrate (Ambien) 5 mg BEDTIME PRN ORAL Insomnia 08/02/18 23:30 08/09/18 23:29 08/04/18 21:44 Last 24 Hour Vital Signs Date Time Temp Pulse Resp B/P (MAP) Pulse Ox O2 Delivery O2 Flow Rate FiO2 08/06/18 12:00 97.9 88 18 130/79 (96) 97 08/06/18 09:00 Room Air 08/06/18 08:00 97.5 81 17 122/80 (94) 98 08/06/18 04:00 97.2 79 19 105/70 (82) 98 08/06/18 00:00 97.2 90 19 131/92 (105) 99 08/05/18 21:00 Room Air 08/05/18 20:00 97.7 85 19 129/94 (106) 99 08/05/18 18:24 97.4 08/05/18 17:41 97.4 08/05/18 16:00 97.7 78 16 119/84 (96) 98 08/05/18 12:00 98.0 71 17 135/86 (102) 98 08/05/18 08:06 Room Air 08/05/18 08:00 97.4 85 16 132/89 (103) 99 08/05/18 04:00 97.4 72 18 119/83 (95) 99 08/05/18 00:00 97.9 80 20 134/84 (101) 94 08/04/18 21:00 Room Air 08/04/18 20:00 98.1 95 18 108/73 (85) 97 Intake and Output 08/05/18 08/06/18 19:00 07:00 Intake Total 1525 ml 1067.416 ml Balance 1525 ml 1067.416 ml Intake Oral 1250 ml 700 ml IV Total 275 ml 367.416 ml # Voids 5 # Bowel Movements 1 Labs Test 08/05/18 09:00 08/06/18 10:15 Vancomycin Level Trough 5.3 ug/mL (5.0-12.0) 13.6 ug/mL (5.0-12.0) Height (Feet): 5 Height (Inches): 4.00 Weight (Pounds): 158 Objective PHYSICAL EXAM General Appearance: alert, GCS 15, Chronically Ill Head: other - craniotomy site C/D/I ENT: hearing grossly normal Neck: limited range of motion Respiratory: chest non-tender, lungs clear Cardiovascular #1: normal inspection, regular rate, rhythm Gastrointestinal: normal inspection, non tender Genitourinary: normal inspection Neurologic: alert, oriented x3, responsive, motor weakness - right upper extremity 4/5, some tremor Fred Zhang MD Aug 06, 2018 18:54
--- NOTE | 2018-08-06 19:37 | NUR ---
HAND-OFF: Report given to Betsy RN.
[2018-08-06 20:00] VITALS: BP 112/71
[2018-08-06] MEDS: Dyna-Hex 2% Top Sol 2oz TOPIC SCH (20:00)
[2018-08-06] MEDS: Milk of Magnesia 30ml Ud ORAL SCH (21:28)
--- NOTE | 2018-08-06 23:52 | Neurology Progress Note ---
Interim History Interim History ROS Limited/Unobtainable: No Complaints: Back Pain /Weakness/ Cerebral Edema/ Brain and Bone mets Events: No Change in MS- pain controlled at this time Interim History This visit was performed on August 06, [address] Rodríguez Flaherty. Objective Physical Exam Last Vital Signs Date Time Temp Pulse Resp B/P (MAP) Pulse Ox O2 Delivery O2 Flow Rate FiO2 08/06/18 16:00 98.1 80 18 128/83 (98) 98 08/06/18 09:00 Room Air Laboratory Tests Test 08/06/18 10:15 Vancomycin Level Trough 13.6 ug/mL (5.0-12.0) H General: well developed, well nourished Head: normocophalic Neck: no rigidity EENT: benign Neurologic Exam Mental Status: awake, alert, oriented x4, normal recent memory, normal remote memory, preserved visuospatial function Speech: normal speech Language: normal language Cranial Nerve II: fundus normal, visual zurita, other - Some left eye vision loss and left 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 Cranial Nerves III, IV, : EOMI Cranial Nerve V: normal facial sensations, temporales function normal Cranial Nerve VII: other - Mild left facial edema Cranial Nerve XI: SCM symmetric Cranial Nerve XII: tongue midline Motor System: normal muscle tone, other - INcreased tremulousness of right side - stable Sensory: normal pinprick, normal light touch, normal position sense, normal graphesthesia Stance: other Gait: other - Ambulatory but weak/ unstable Impression/Recommendations Problems: (1) Vision loss, right eye (2) Muscle right arm weakness (3) Seizure prophylaxis Assessment & Plan: Continue home dosage of Keppra at this time. Patient denies ever having had a seizure. (4) Brain metastasis (5) Bony metastasis (6) Metastatic breast cancer (7) Seizure (8) Hx of breast cancer (9) Intractable back pain Assessment & Plan: Continue Q4 Hour Neuro obs Continue Dexamethasone 2mg BID Continue Conversion from IV to oral pain management. Continue seizure prophylaxis Plan for D/C so patient can follow up with outpatient Heme/Onc Rad/Onc for palliative radiation or chemotherapy, BRCA testing Case management has been contacted to help patient manage coordination of her documents and outpatient arrangements/ planning Status: Indira Mckenna N.P. Aug 06, 2018 23:52
[2018-08-07] VITALS: BP 121/90
[2018-08-07] MEDS: clonazePAM 0.5mg tab ORAL SCH ×5 (00:02→22:21)
[2018-08-07] MEDS: Vancomycin 1.25gm Premix IVPB SCH ×2 (03:50→11:33)
[2018-08-07 04:00] VITALS: BP 129/72
[2018-08-07] MEDS: metroNIDAZOLE 500mg tab ORAL SCH ×3 (05:14→22:21)
--- NOTE | 2018-08-07 07:55 | NUR ---
NURSE NOTES: RECEIVED PT FROM TIMA BOLANOS. PT IS AWAKE,AAOX4, ON ROOM AIR, NO ACUTE DISTRESS NOTED. IV ON R FA IS INTACT AND PATENT. BED IS LOCKED AT THE LOWEST POSITION, BED ALARMS ACTIVE, SIDE RAILS UP X2, AND CALL LIGHT IS WITHIN REACH. WILL CONTINUE TO MONITOR.
--- NOTE | 2018-08-07 07:58 | NUR ---
HAND-OFF: Report given to TIMA ACOSTA.
--- NOTE | 2018-08-07 08:00 | NUR ---
NURSE NOTES: pt in bed with no sob nor in any form of distress noted. breathing regular and unlabored. pt is awaiting for picc line placement. will continue to monitor
[2018-08-07] MEDS ORDERED: Lidocaine 1% Plain 30 ml INJ PRN (08:09)
[2018-08-07] MEDS ORDERED: Heparin1,000 units/500ml Premix(Conc:2 units/ml) IV PRN (08:09)
[2018-08-07] MEDS: Nystatin Susp 500,000 units/5ml ORAL SCH ×4 (09:00→20:36)
[2018-08-07] MEDS: LORazepam 0.5mg tab ORAL SCH ×3 (09:00→17:55)
[2018-08-07] MEDS: Lyrica 75mg cap ORAL SCH ×3 (09:00→17:58)
[2018-08-07] MEDS: Naloxegol Oxalate 25mg tab ORAL SCH (11:09)
[2018-08-07] MEDS: Anastrazole 1mg tab ORAL SCH (11:09)
[2018-08-07] MEDS: Vitamin D 1000 IU Tab ORAL SCH (11:27)
[2018-08-07] MEDS: Bisacodyl EC 5mg tab ORAL SCH (11:27)
[2018-08-07] MEDS: Enoxaparin 40mg Inj SUBQ SCH (11:32)
[2018-08-07] MEDS: Dorzolamide 2% 10ml Btl LEFT EYE SCH ×2 (11:34→17:59)
[2018-08-07 12:00] VITALS: BP 135/90
--- NOTE | 2018-08-07 12:00 | NUR ---
NURSE NOTES: pt came back from picc line placement on (L) upper arm double lumen. no active bleeding nor discomfort noted. will continue to monitor
--- NOTE | 2018-08-07 14:03 | Infectious Diseases Prog Note ---
Assessment/Plan Assessment/Plan IMPRESSION: 1. 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 3. Multiple pathologic fracture in thoracic and lumbar spine. 4. Metastatic breast cancer according to the patient it was originated from right breast. The patient gets Ibrance and anastrozole initially, now getting just anastrozole, get also radiation. 5. Metastatic brain lesion, had surgery. 6. Anemia of chronic disease. RECOMMENDATION: We will continue with vancomycin and Flagyl until 08/15 Agree with discharge Subjective ROS Limited/Unobtainable: No Constitutional: Reports: no symptoms Respiratory: Reports: no symptoms Gastrointestinal/Abdominal: Reports: no symptoms Genitourinary: Reports: no symptoms Musculoskeletal: Reports: pain Allergies: Coded Allergies: No Known Allergies (Unverified , 08/02/18) Objective Vital Signs Last 24 Hour Vital Signs Date Time Temp Pulse Resp B/P (MAP) Pulse Ox O2 Delivery O2 Flow Rate FiO2 08/07/18 12:00 97.5 69 18 135/90 (105) 100 08/07/18 09:36 97.5 08/07/18 09:00 Room Air 08/07/18 04:00 97.5 69 18 129/72 (91) 100 08/07/18 00:00 98.2 73 16 121/90 (100) 98 08/06/18 21:00 Room Air 08/06/18 20:00 98.5 77 16 112/71 (85) 96 08/06/18 16:00 98.1 80 18 128/83 (98) 98 Height (Feet): 5 Height (Inches): 4.00 Weight (Pounds): 158 General Appearance: no acute distress HEENT: mucous membranes moist Respiratory/Chest: lungs clear Cardiovascular: normal rate, other - left arm PICC line Abdomen: soft, non tender Extremities: no edema Neurologic/Psychiatric: alert, oriented x 3, responsive Current Medications Medications (Trade) Dose Ordered Sig/Rahul Route PRN Reason Start Time Stop Time Status Last Admin Dose Admin Acetaminophen (Tylenol) 500 mg Q4HR PRN ORAL TEMPERATURE GREATER THAN 100.4 08/03/18 01:00 09/02/18 00:59 Acetaminophen (Tylenol) 500 mg Q6H PRN ORAL Mild Pain (Pain Scale 1-3) 08/02/18 23:30 09/01/18 23:29 Anastrozole (Arimidex) 1 mg DAILY ORAL 08/03/18 09:00 09/02/18 08:59 08/07/18 11:09 Bisacodyl (Dulcolax) 10 mg DAILY RECTAL 08/03/18 09:00 09/02/18 08:59 08/07/18 11:26 Bisacodyl (Dulcolax) 15 mg DAILY ORAL 08/03/18 09:00 09/02/18 08:59 08/07/18 11:27 Chlorhexidine Gluconate (Shirley-Hex 2%) 1 applic DAILY@2000 TOPIC 08/06/18 20:00 09/05/18 19:59 Clonazepam (KlonoPIN) 0.5 mg Q6H ORAL 08/04/18 17:00 08/11/18 16:59 08/07/18 11:09 Dexamethasone (Decadron) 2 mg BID ORAL 08/03/18 18:00 09/02/18 17:59 08/07/18 11:09 Dorzolamide HCl (Trusopt) 1 drop BID LEFT EYE 08/03/18 09:00 09/02/18 08:59 08/07/18 11:34 Enoxaparin Sodium (Lovenox) 40 mg DAILY SUBQ 08/03/18 09:00 09/02/18 08:59 08/07/18 11:32 Gadobutrol (Gadavist) 7.5 mmol NOW PRN IV Radiology Procedure 08/03/18 16:00 08/07/18 15:50 Heparin Sodium/ Sodium Chloride (Heparin 1000 units/500ml Premix) 1,000 unit ONCE PRN IV PICC 08/07/18 08:09 08/07/18 18:00 Hydromorphone HCl (Dilaudid) 2 mg Q3H PRN IVP Severe Pain (Pain Scale 7-10) 08/03/18 09:45 08/10/18 09:44 08/07/18 09:06 Levetiracetam (Keppra) 500 mg EVERY 12 HOURS ORAL 08/03/18 09:00 09/02/18 08:59 08/07/18 11:31 Lidocaine (Lidoderm 5% PATCH) 2 patch DAILY TDERMAL 08/06/18 09:15 09/05/18 09:14 Lidocaine HCl (Xylocaine 1% 30ml) 30 ml ONCE PRN INJ PICC 08/07/18 08:09 08/07/18 18:00 Lorazepam (Ativan) 0.5 mg THREE TIMES A DAY ORAL 08/03/18 09:00 08/10/18 08:59 08/07/18 13:14 Magnesium Hydroxide (Mom) 30 ml BEDTIME ORAL 08/03/18 21:00 09/02/18 20:59 08/06/18 21:28 Methadone HCl (Methadone HCl) 10 mg Q6HR ORAL 08/03/18 12:00 08/10/18 09:44 08/07/18 11:09 Metronidazole (Flagyl) 500 mg Q8HR ORAL 08/03/18 14:00 08/15/18 13:59 08/07/18 13:14 Naloxegol (Movantik) 25 mg DAILY ORAL 08/04/18 09:00 09/03/18 08:59 08/07/18 11:09 Naloxone HCl (Narcan) 0.2 mg Q2M PRN IVP respritory distress (RR<12) 08/03/18 09:45 09/02/18 09:44 Nystatin (Nystatin) 5 ml FOUR TIMES A DAY ORAL 08/03/18 09:00 08/10/18 08:59 08/07/18 13:14 Pantoprazole (Protonix) 40 mg DAILY ORAL 08/03/18 15:00 09/02/18 14:59 08/07/18 11:08 Polyethylene Glycol (Miralax) 17 gm BEDTIME PRN ORAL Constipation 08/02/18 23:30 09/01/18 23:29 Pregabalin (Lyrica) 75 mg THREE TIMES A DAY ORAL 08/03/18 09:45 09/02/18 09:44 08/07/18 13:14 Vancomycin HCl (Vanco rx to dose) 1 ea DAILY PRN MISC PER PHARMACY 08/04/18 13:45 09/03/18 13:44 Vancomycin HCl/ Dextrose 275 ml @ 183.333 mls/hr Q8H IVPB 08/06/18 18:00 08/11/18 17:59 08/07/18 11:33 Vitamin D (Vitamin D) 2,000 intlu DAILY ORAL 08/03/18 09:00 09/02/18 08:59 08/07/18 11:27 Zolpidem Tartrate (Ambien) 5 mg BEDTIME PRN ORAL Insomnia 08/02/18 23:30 08/09/18 23:29 08/04/18 21:44 Gene Cosme MD Aug 07, 2018 14:03
--- NOTE | 2018-08-07 14:55 | Hematology/Onc Progress Note ---
Assessment/Plan Assessment/Plan ASSESSMENT AND PLAN: # Metastatic breast cancer with visceral mets, to the spine as well as the brain , in regards to her treatment, she was diagnosed approximately 3 months ago, has seen several doctors at [facility], has been initially on ibrance and anastrozaole, the ibrance has since been discontinued, she is at this time only on anastrazole, and she has been getting lupron treatment once a month as well, she is also very likely BRCA ++ because she has 3 grandma siblings (3 great aunts) and also an aunt of her grandma who had all breast cancer at a young age , she has 2 young kids --> at this time, continue anastrazole 1mg po daily --> continue lupron once a month as well --> prognosis unfortunately is poor given brain mets --> neuro eval to see if disease is worse, to get mri of the brain and spine as well --> she is to see rad onc as an outpatient as well --> she is to see medical oncology as outpatient --> to get testing for BRCA as well given she has 2 young kids, has three great aunts with breast cancer as well as a grandmas aunt at a young age --> unfortunately prognosis is poor for this young lady --> 08/04 imaging: multiple CT imaging suggest of metastasis # Decreased white blood cell count, unspec (aka leukopenia) - wbc under 4.5k, could be related to infection v splenomegaly v meds, could be due to chemo --> if the total ANC is less than 2000, may consider neupogen --> continue antibiotics with ID service, appreciate recs --> medications have been reviewed --> hepatitis and hiv have been ordered --> CT of abd/spine show multiple mets # Anemia of chronic disease due to underlying chronic medical issues, multifactorial --> Currently stable with Hgb >10. --> Hgb goal >7. Transfuse prn. # Vision Loss, Right eye # Seizure ppx. Continue home dosage of Keppra at this time. Patient denies ever having had a seizure. # Intractable back pain. The time note is entered does not reflect time patient was examined. GREATLY APPRECIATE CONSULTATION. Subjective Allergies: Coded Allergies: No Known Allergies (Unverified , 08/02/18) All Systems: reviewed and negative except above Subjective 08/05: Pt awake and alert. No signs acute distress. Several CT imaging reviewed, shows metastasis. Pt with poor prognosis. 08/06: Pt in bed reports pain is tolerated, no acute events 08/07: Pt awake and alert. No sob, afebrile. Objective Objective Current Medications Medications (Trade) Dose Ordered Sig/Rahul Route PRN Reason Start Time Stop Time Status Last Admin Dose Admin Acetaminophen (Tylenol) 500 mg Q4HR PRN ORAL TEMPERATURE GREATER THAN 100.4 08/03/18 01:00 09/02/18 00:59 Acetaminophen (Tylenol) 500 mg Q6H PRN ORAL Mild Pain (Pain Scale 1-3) 08/02/18 23:30 09/01/18 23:29 Anastrozole (Arimidex) 1 mg DAILY ORAL 08/03/18 09:00 09/02/18 08:59 08/07/18 11:09 Bisacodyl (Dulcolax) 10 mg DAILY RECTAL 08/03/18 09:00 09/02/18 08:59 08/07/18 11:26 Bisacodyl (Dulcolax) 15 mg DAILY ORAL 08/03/18 09:00 09/02/18 08:59 08/07/18 11:27 Chlorhexidine Gluconate (Shirley-Hex 2%) 1 applic DAILY@2000 TOPIC 08/06/18 20:00 09/05/18 19:59 Clonazepam (KlonoPIN) 0.5 mg Q6H ORAL 08/04/18 17:00 08/11/18 16:59 08/07/18 11:09 Dexamethasone (Decadron) 2 mg BID ORAL 08/03/18 18:00 09/02/18 17:59 08/07/18 11:09 Dorzolamide HCl (Trusopt) 1 drop BID LEFT EYE 08/03/18 09:00 09/02/18 08:59 08/07/18 11:34 Enoxaparin Sodium (Lovenox) 40 mg DAILY SUBQ 08/03/18 09:00 09/02/18 08:59 08/07/18 11:32 Gadobutrol (Gadavist) 7.5 mmol NOW PRN IV Radiology Procedure 08/03/18 16:00 08/07/18 15:50 Heparin Sodium/ Sodium Chloride (Heparin 1000 units/500ml Premix) 1,000 unit ONCE PRN IV PICC 08/07/18 08:09 08/07/18 18:00 Hydromorphone HCl (Dilaudid) 2 mg Q3H PRN IVP Severe Pain (Pain Scale 7-10) 08/03/18 09:45 08/10/18 09:44 08/07/18 09:06 Levetiracetam (Keppra) 500 mg EVERY 12 HOURS ORAL 08/03/18 09:00 09/02/18 08:59 08/07/18 11:31 Lidocaine (Lidoderm 5% PATCH) 2 patch DAILY TDERMAL 08/06/18 09:15 09/05/18 09:14 Lidocaine HCl (Xylocaine 1% 30ml) 30 ml ONCE PRN INJ PICC 08/07/18 08:09 08/07/18 18:00 Lorazepam (Ativan) 0.5 mg THREE TIMES A DAY ORAL 08/03/18 09:00 08/10/18 08:59 08/07/18 13:14 Magnesium Hydroxide (Mom) 30 ml BEDTIME ORAL 08/03/18 21:00 09/02/18 20:59 08/06/18 21:28 Methadone HCl (Methadone HCl) 10 mg Q6HR ORAL 08/03/18 12:00 08/10/18 09:44 08/07/18 11:09 Metronidazole (Flagyl) 500 mg Q8HR ORAL 08/03/18 14:00 08/15/18 13:59 08/07/18 13:14 Naloxegol (Movantik) 25 mg DAILY ORAL 08/04/18 09:00 09/03/18 08:59 08/07/18 11:09 Naloxone HCl (Narcan) 0.2 mg Q2M PRN IVP respritory distress (RR<12) 08/03/18 09:45 09/02/18 09:44 Nystatin (Nystatin) 5 ml FOUR TIMES A DAY ORAL 08/03/18 09:00 08/10/18 08:59 08/07/18 13:14 Pantoprazole (Protonix) 40 mg DAILY ORAL 08/03/18 15:00 09/02/18 14:59 08/07/18 11:08 Polyethylene Glycol (Miralax) 17 gm BEDTIME PRN ORAL Constipation 08/02/18 23:30 6/29/19 23:29 Pregabalin (Lyrica) 75 mg THREE TIMES A DAY ORAL 08/03/18 09:45 09/02/18 09:44 08/07/18 13:14 Vancomycin HCl (Vanco rx to dose) 1 ea DAILY PRN MISC PER PHARMACY 08/04/18 13:45 09/03/18 13:44 Vancomycin HCl/ Dextrose 275 ml @ 183.333 mls/hr Q8H IVPB 08/06/18 18:00 08/11/18 17:59 08/07/18 11:33 Vitamin D (Vitamin D) 2,000 intlu DAILY ORAL 08/03/18 09:00 09/02/18 08:59 08/07/18 11:27 Zolpidem Tartrate (Ambien) 5 mg BEDTIME PRN ORAL Insomnia 08/02/18 23:30 08/09/18 23:29 08/04/18 21:44 Last 24 Hour Vital Signs Date Time Temp Pulse Resp B/P (MAP) Pulse Ox O2 Delivery O2 Flow Rate FiO2 08/07/18 13:44 97.5 08/07/18 12:00 97.5 69 18 135/90 (105) 100 08/07/18 09:36 97.5 08/07/18 09:00 Room Air 08/07/18 04:00 97.5 69 18 129/72 (91) 100 08/07/18 00:00 98.2 73 16 121/90 (100) 98 08/06/18 21:00 Room Air 08/06/18 20:00 98.5 77 16 112/71 (85) 96 08/06/18 16:00 98.1 80 18 128/83 (98) 98 08/06/18 12:00 97.9 88 18 130/79 (96) 97 08/06/18 09:00 Room Air 08/06/18 08:00 97.5 81 17 122/80 (94) 98 08/06/18 04:00 97.2 79 19 105/70 (82) 98 08/06/18 00:00 97.2 90 19 131/92 (105) 99 08/05/18 21:00 Room Air 08/05/18 20:00 97.7 85 19 129/94 (106) 99 08/05/18 16:00 97.7 78 16 119/84 (96) 98 Intake and Output 08/06/18 08/07/18 18:59 06:59 Intake Total 880 ml 366.666 ml Balance 880 ml 366.666 ml Intake Oral 880 ml IV Total 366.666 ml # Voids 4 2 Labs Test 08/05/18 09:00 08/06/18 10:15 Vancomycin Level Trough 5.3 ug/mL (5.0-12.0) 13.6 ug/mL (5.0-12.0) Height (Feet): 5 Height (Inches): 4.00 Weight (Pounds): 158 Objective PHYSICAL EXAM General Appearance: alert, GCS 15, Chronically Ill Head: other - craniotomy site C/D/I ENT: hearing grossly normal Neck: limited range of motion Respiratory: chest non-tender, lungs clear Cardiovascular #1: normal inspection, regular rate, rhythm Gastrointestinal: normal inspection, non tender Genitourinary: normal inspection Neurologic: alert, oriented x3, responsive, motor weakness - right upper extremity 4/5, some tremor Fred Zhang MD Aug 07, 2018 14:55
--- NOTE | 2018-08-07 15:03 | Diagnostic Imaging Report ---
Indications: Needs long-term IV access Technique: Ultrasound confirms patent compressible left basilic vein. Total sterile technique, including sterile probe cover and sterile gel, hat, mask, sterile gown, large sterile drape, and preparation with 2% chlorhexidine utilized. Local anesthesia with 1% lidocaine. Under real-time ultrasound guidance, puncture basilic vein using 21-gauge needle, documented and archived, passage 0.018 guidewire under direct fluoroscopy, which was used to determine appropriate catheter length, exchange for 4 Moroccan peel-away sheath. 4 Moroccan Bard dual-lumen power PICC cut to 46 cm. It was inserted through the peel-away sheath. Peel-away sheath and guidewire removed. Catheter fixed to the skin. Both catheter ports aspirated and flushed. Patient tolerated procedure well, without immediate complication. Digital radiograph documents satisfactory catheter tip position, at the cavoatrial junction. Total fluoroscopy time 25.7 seconds. Total dose area product [id number] Total number of images: 1 Impression: Successful placement of left arm PICC under sonographic and fluoroscopic guidance, as described above.
--- NOTE | 2018-08-07 15:07 | NUR ---
RD ASSESSMENT & RECOMMENDATIONS SEE CARE ACTIVITY FOR COMPLETE ASSESSMENT DAILY ESTIMATED NEEDS: Needs based on Metastatic CA, 59kt abw 30-35 kcals/kg 7884-0573 total kcals 1-1.5 g protein/kg 59-89 g total protein 25-30 mL/kg 4909-3193 total fluid mLs NUTRITION DIAGNOSIS: Increased kcal/prot intake needs R/T catabolic dx as evidenced by dx of metastatic breast cancer to bones and brain. CURRENT DIET:REGULAR PO DIET RECOMMENDATIONS: Maintain regular diet ADDITIONAL RECOMMENDATIONS: * Standing wt as able for accurate CBW * High protein snacks TID in b/w meals * Monitor PO tolerance * Monitor BGs closely while on decadron -f/up CBC and BMP (last done 08/03)
--- NOTE | 2018-08-07 15:08 | NUR ---
*-* INSURANCE *-* ALL CLINICALS AND REVIEWS HAVE BEEN FAXED: LEONOR MONAHAN P: [phone] F: [phone]
[2018-08-07] MEDS ORDERED: VANCOMYCIN HC1.25 GM IV (15:15)
[2018-08-07 16:00] VITALS: BP 138/99
--- NOTE | 2018-08-07 18:00 | NUR ---
NURSE NOTES: Called made to give report at [facility] but they were unable to accept the pt at this time. ZACHARIAH Messer made aware and was told to hold discharge till tomorrow.
[2018-08-07] MEDS ORDERED: VANCOMYCIN1 GM/200 M IV (18:09)
--- NOTE | 2018-08-07 18:40 | General Progress Note ---
Assessment/Plan Assessment/Plan: (1) Metastatic breast cancer to bone (2) Intractable pain Patient will be continued on Methadone Lyrica and Dilaudid. D/w Dr. Choi and he concurred. Subjective Date patient seen: Aug 07, 2018 Time patient seen: 05:30 - pm Allergies: Coded Allergies: No Known Allergies (Unverified , 08/02/18) Subjective REVIEW OF SYSTEMS: Denies rash, fever, chills, sweating, dizziness, blurred vision, sore throat, or change in her weight. No shortness of breath or chest pain. No nausea, vomiting, diarrhea, blood in the stool or urine. No bowel or bladder incontinence. No dysuria. She is complaining of back pain and chest wall pain. SUBJECTIVE: Patient has been tolerating the pain on the Methadone scheduled and Dilaudid 5 doses in the last 24hrs. Objective Last 24 Hour Vital Signs Date Time Temp Pulse Resp B/P (MAP) Pulse Ox O2 Delivery O2 Flow Rate FiO2 08/07/18 18:25 97.8 08/07/18 16:00 97.8 85 18 138/99 (112) 98 08/07/18 15:58 97.5 08/07/18 12:00 97.5 69 18 135/90 (105) 100 08/07/18 09:00 Room Air 08/07/18 04:00 97.5 69 18 129/72 (91) 100 08/07/18 00:00 98.2 73 16 121/90 (100) 98 08/06/18 21:00 Room Air 08/06/18 20:00 98.5 77 16 112/71 (85) 96 Intake and Output 08/06/18 08/07/18 18:59 06:59 Intake Total 880 ml 366.666 ml Balance 880 ml 366.666 ml Intake Oral 880 ml IV Total 366.666 ml # Voids 4 2 Laboratory Tests 08/07/18 17:00: Vancomycin Level Trough 25.2H Height (Feet): 5 Height (Inches): 4.00 Weight (Pounds): 158 Objective GENERAL: Alert, awake, oriented. LUNGS: Decreased breath sounds bilaterally. HEART: S1 and S2 regular. ABDOMEN: Soft and nontender. EXTREMITIES: No cyanosis. No clubbing. NEURO: No changes. Procedure: CT T Spine no Contrast EXAM: CT Thoracic Spine Without Intravenous Contrast CLINICAL HISTORY: MASS TECHNIQUE: Axial computed tomography images of the thoracic spine without intravenous contrast. CTDI is 22.0 2 mGy and DLP is 722.2 mGy-cm. One or more of the following dose reduction techniques were used: automated exposure control, adjustment of the mA and/or kV according to patient size, use of iterative reconstruction technique. COMPARISON: No relevant prior studies available. FINDINGS: Vertebrae: Diffuse lytic lesions consistent with multiple myeloma or metastasis. Pathologic fracture involving the superior endplate of T2 and the inferior endplate of T6. No retropulsion. Discs/spinal canal/neural foramina: No acute process. Lungs: Bilateral consolidative atelectasis. Pleural space: Trace left pleural effusion. Heart: Cardiomegaly. Thyroid: 9 mm nodule in the right lobe of the thyroid gland. IMPRESSION: Diffuse lytic lesions consistent with multiple myeloma or metastasis. Pathologic fracture involving the superior endplate of T2 and the inferior endplate of T6. No retropulsion. Procedure: CT L Spine no Contrast EXAM: CT Lumbar Spine Without Intravenous Contrast CLINICAL HISTORY: MASS TECHNIQUE: Axial computed tomography images of the lumbar spine without intravenous contrast. CTDI is 13.86 mGy and DLP is 342.27 mGy-cm. One or more of the following dose reduction techniques were used: automated exposure control, adjustment of the mA and/or kV according to patient size, use of iterative reconstruction technique. COMPARISON: No relevant prior studies available. FINDINGS: Vertebrae: Diffuse lytic lesions consistent with metastasis or multiple myeloma. Pathologic fracture in the interim endplate of L5. No retropulsion. Discs/spinal canal/neural foramina: No acute process. Soft tissues: Subcutaneous edema in the back. IMPRESSION: Diffuse lytic lesions consistent with metastasis or multiple myeloma. Pathologic fracture in the interim endplate of L5. No retropulsion. Procedure: CT Pelvis no Contrast EXAM: CT Pelvis Without Intravenous Contrast CLINICAL HISTORY: MASS TECHNIQUE: Axial computed tomography images of the pelvis without intravenous contrast. CTDI is 12.29 mGy and DLP is 333 mGy-cm. One or more of the following dose reduction techniques were used: automated exposure control, adjustment of the mA and/or kV according to patient size, use of iterative reconstruction technique. COMPARISON: No relevant prior studies available. FINDINGS: Intraperitoneal space: Small amount of fluid in the pelvis. Bladder: Unremarkable. Reproductive: Unremarkable. Bones/joints: No acute fracture or dislocation. Numerous lytic lesions in the osseous structures suggesting metastasis or multiple myeloma. Soft tissues: Subcutaneous edema in the back. Vasculature: Unremarkable. No lower abdominal aortic aneurysm. Lymph nodes: No enlarged lymph nodes. IMPRESSION: 1. No acute fracture or dislocation. 2. Numerous lytic lesions in the osseous structures suggesting metastasis or multiple myeloma. Ernesto Avila Aug 07, 2018 18:40
--- NOTE | 2018-08-07 19:19 | NUR ---
HAND-OFF: Report given to TIMA Meyer.
--- NOTE | 2018-08-07 19:20 | NUR ---
NURSE NOTES: RECEIVED PT FROM TIMA ACOSTA. PT IS AWAKE, SITTING UP IN BED LISTENING TO MUSIC, AAOX4, ON ROOM AIR. DENIES SOB. C/O GENERALIZED PAIN 11/13. PICC LINE NOTED ON THE LEFT UPPER ARM, INTACT AND PATENT. DRESSING IS INTACT AND DRY. BED IS LOCKED AT THE LOWEST POSITION, BED ALARMS ACTIVE, SIDE RAILS UP X2 AND CALL LIGHT IS WITHIN REACH. WILL CONTINUE TO MONITOR.
[2018-08-07 20:00] VITALS: BP 121/82
[2018-08-07] MEDS: Milk of Magnesia 30ml Ud ORAL SCH (20:36)
[2018-08-07] MEDS: Dyna-Hex 2% Top Sol 2oz TOPIC SCH (20:37)
--- NOTE | 2018-08-07 22:32 | General Progress Note ---
Assessment/Plan Problem List: (1) Seizure ICD Codes: R56.9 - Unspecified convulsions SNOMED: 97697927, 45070148, 930664205 (2) Bony metastasis ICD Codes: C79.51 - Secondary malignant neoplasm of bone SNOMED: 91965132 (3) Brain metastasis ICD Codes: C79.31 - Secondary malignant neoplasm of brain SNOMED: 82373058 (4) Intractable back pain ICD Codes: M54.9 - Dorsalgia, unspecified SNOMED: 988169591 (5) Metastatic breast cancer ICD Codes: C50.919 - Malignant neoplasm of unspecified site of unspecified female breast SNOMED: 308795732, 376382368 (6) Hx of breast cancer ICD Codes: Z85.3 - Personal history of malignant neoplasm of breast SNOMED: 226883920 Status: progressing Assessment/Plan: abx per id afebrile chronic pain syndrome sepsis mets breast cancer to bone pain meds per dr zheng reviewed chart and labs Subjective ROS Limited/Unobtainable: Yes Allergies: Coded Allergies: No Known Allergies (Unverified , 08/02/18) Objective Last 24 Hour Vital Signs Date Time Temp Pulse Resp B/P (MAP) Pulse Ox O2 Delivery O2 Flow Rate FiO2 08/07/18 20:00 98.2 83 16 121/82 (95) 97 08/07/18 18:25 97.8 08/07/18 16:00 97.8 85 18 138/99 (112) 98 08/07/18 15:58 97.5 08/07/18 12:00 97.5 69 18 135/90 (105) 100 08/07/18 09:00 Room Air 08/07/18 04:00 97.5 69 18 129/72 (91) 100 08/07/18 00:00 98.2 73 16 121/90 (100) 98 Intake and Output 08/06/18 08/07/18 19:00 07:00 Intake Total 880 ml 366.666 ml Balance 880 ml 366.666 ml Intake Oral 880 ml IV Total 366.666 ml # Voids 4 2 Laboratory Tests 08/07/18 17:00: Vancomycin Level Trough 25.2H Height (Feet): 5 Height (Inches): 4.00 Weight (Pounds): 158 Cardiovascular: normal rate Respiratory/Chest: lungs clear HadadzAli MD Aug 07, 2018 22:32
--- NOTE | 2018-08-07 23:49 | Neurology Progress Note ---
Interim History Interim History ROS Limited/Unobtainable: Yes Complaints: Back Pain/ Met Breast Ca Events: PICC Line insertion for IV abx outpatient today Interim History This visit was performed on 08/07/[address] Rodríguez Flaherty Review of Systems All Systems: reviewed and negative except above Objective Physical Exam Last Vital Signs Date Time Temp Pulse Resp B/P (MAP) Pulse Ox O2 Delivery O2 Flow Rate FiO2 08/07/18 21:00 Room Air 08/07/18 20:00 98.2 83 16 121/82 (95) 97 Laboratory Tests Test 08/07/18 17:00 Vancomycin Level Trough 25.2 ug/mL (5.0-12.0) H General: well developed, well nourished Neck: no rigidity EENT: benign Neurologic Exam Mental Status: awake, alert, oriented x4, normal cognition, good mathematical skills, normal recent memory, normal remote memory, preserved visuospatial function, other Speech: normal speech, no dysarthia, other Language: normal language, no aphasia Cranial Nerve II: fundus normal, other Cranial Nerves III, IV, : other Cranial Nerve V: normal facial sensations, masseters function normal, pterygoids function normal Cranial Nerve VII: other Cranial Nerve VIII: other Cranial Nerve IX: normal palate elevation, gag response Cranial Nerve X: no voice hoarseness Cranial Nerve XI: SCM symmetric, trapezii function normal Cranial Nerve XII: tongue midline, no tongue atrophy/fasciculations Motor System: normal muscle tone, no involuntary movement, no muscle wasting Sensory: normal pinprick, normal light touch, normal position sense, normal graphesthesia Coordination: other Gait: other Objective Her left eye vision continues to improve. Her pain is controlled at this time. Her exam is stable otherwise. Imaging [facility] – [place] [facility] [address] [place] [address] [phone], fax [phone] Dm Keller M.D. Pres[employer] Ad[employer]er Patient : SHAENTamikoVANESSACARLOS R Referring Physician: Indira Gonzalez N.P. ID Number: [id number] Service Date: 08/03/18 : 1980 Report Date: 08/03/18 Gender: F Accession No.: [id number] Location: 4E Procedure: MRI Brain w/wo Contrast History: MASS Exam: MR HEAD Without Contrast Comparison: None available FINDINGS: Left convexity lesion with irregular lobular peripheral enhancement measuring 2.6 x 1.8 x 2 cm, overlying smooth dural enhancement and calvarial defect, correlate with history. There appears to be associated susceptibility artifact consistent with blood products/hemorrhage. Associated moderate amount of vasogenic edema. 2-3 mm of localized left to right midline shift. No hydrocephalus. Major intracranial flow voids appear within limits. No other lesion or abnormal enhancement identified. No acute infarct. Cannot exclude ovoid osseous metastatic lesion at the right side of the clivus measuring around 9 mm image 6 series 7 and image 12 series 4. Mild left maxillary sinus mucosal thickening. Old right medial orbital wall fracture deformity. IMPRESSION: Left convexity lesion with irregular lobular peripheral enhancement measuring 2.6 x 1.8 x 2 cm, overlying smooth dural enhancement and calvarial defect, correlate with history. There appears to be associated susceptibility artifact consistent with blood products/hemorrhage. Associated moderate amount of vasogenic edema. 2-3 mm of localized left to right midline shift. No hydrocephalus. No other lesion or abnormal enhancement identified. No acute infarct. Dictated By: Fermin Lara MD Electronically Signed By: Fermin Lara MD Signed Date/Time 08/03/18 9983 CC: Indira Gonzalez N.P.; Tawana Ordaz MD Impression/Recommendations Problems: (1) Vision loss, right eye (2) Muscle right arm weakness (3) Seizure prophylaxis Assessment & Plan: Continue home dosage of Keppra at this time. Patient denies ever having had a seizure. (4) Brain metastasis Assessment & Plan: Seen on MRI with possible recurrence intraparenchymally and of right clivus. Cannot exclude ovoid osseous metastatic lesion at the right side of the clivus measuring around 9 mm (5) Bony metastasis (6) Metastatic breast cancer (7) Seizure (8) Hx of breast cancer (9) Intractable back pain Assessment & Plan: Agree with Methadone conversion. Dilaudid oral for breakthrough pain and pain management empanelment JOSEY Continue Lyrica as per protocol- no need for dose increases Keppra to continue without change of dose Dexamethasone to continue at 2mg BID on discharge Recommend MRI T/L Spine, Right Hip imaging - Rad Onc follow up eminent with Dr. Zhang Discussed importance of overall minimization of time on IV pain meds and attempt to start palliative chemotherapy and rad onc for bony mets. Status: progressing Recommendations Agree with Methadone conversion. Dilaudid oral for breakthrough pain and pain management empanelment JOSEY Continue Lyrica as per protocol- no need for dose increases Keppra to continue without change of dose Dexamethasone to continue at 2mg BID on discharge Recommend MRI T/L Spine, Right Hip imaging - Rad Onc follow up eminent with Dr. Zhang Discussed importance of overall minimization of time on IV pain meds and attempt to start palliative chemotherapy and rad onc for bony mets. Stable for discharge from a neurological perspective Indira Gonzalez N.P. Aug 07, 2018 23:49
[2018-08-08] VITALS: BP 136/95
[2018-08-08] MEDS: Vancomycin 1gm/D5W 275ml IVPB SCH ×4 (00:14→09:16)
[2018-08-08 04:00] VITALS: BP 113/74
[2018-08-08] MEDS: metroNIDAZOLE 500mg tab ORAL SCH ×2 (05:05→13:54)
[2018-08-08] MEDS: clonazePAM 0.5mg tab ORAL SCH ×2 (05:05→11:40)
--- NOTE | 2018-08-08 07:47 | NUR ---
HAND-OFF: Report given to TIMA BROWN.
[2018-08-08 08:00] VITALS: BP 121/85
--- NOTE | 2018-08-08 08:30 | NUR ---
NURSE NOTES: PT SITTING ON BED, EATING BREAKFAST. IN NO APPARENT DISTRESS AT THIS TIME. PT IS AXOX4. STATES PAIN IS TOLERABLE AT THIS TIME. PT EDUCATED ON SCHEDULED AND PRN PAIN MEDICATION. PT VERBALIZED UNDERSTANDING. WILL CONTINUE TO MONITOR.
[2018-08-08 08:40] LABS: ANION GAP 6 mmol/L (5-15); BLOOD UREA NITROGEN 12 mg/dL (7-18); CALCIUM 8.4 MG/DL (8.5-10.1); CARBON DIOXIDE 30 MMOL/L (21-32); CHLORIDE 108 MMOL/L (98-107); CREATININE 0.7 MG/DL (0.55-1.30); POTASSIUM 3.5 MMOL/L (3.5-5.1); SODIUM 144 MMOL/L (136-145)
--- NOTE | 2018-08-08 08:45 | General Progress Note ---
Assessment/Plan Assessment/Plan: (1) Metastatic breast cancer to bone (2) Intractable pain Patient will be continued on Methadone Lyrica and Dilaudid. An RX for Methadone Lyrica and Dilaudid sent to pharmacy. D/w Dr. Choi and he concurred. Subjective Date patient seen: Aug 08, 2018 Time patient seen: 07:15 - am Allergies: Coded Allergies: No Known Allergies (Unverified , 08/02/18) Subjective REVIEW OF SYSTEMS: Denies rash, fever, chills, sweating, dizziness, blurred vision, sore throat, or change in her weight. No shortness of breath or chest pain. No nausea, vomiting, diarrhea, blood in the stool or urine. No bowel or bladder incontinence. No dysuria. She is complaining of back pain and chest wall pain. SUBJECTIVE: Patient reports that her pain has been stable and tolerated on the methadone and Dilaudid. She is being transferred to SNF today as per morning caregiver. Objective Last 24 Hour Vital Signs Date Time Temp Pulse Resp B/P (MAP) Pulse Ox O2 Delivery O2 Flow Rate FiO2 08/08/18 04:00 98.4 88 16 113/74 (87) 94 08/08/18 00:00 98.1 85 18 136/95 (109) 98 08/07/18 21:00 Room Air 08/07/18 20:00 98.2 83 16 121/82 (95) 97 08/07/18 18:25 97.8 08/07/18 16:00 97.8 85 18 138/99 (112) 98 08/07/18 15:58 97.5 08/07/18 12:00 97.5 69 18 135/90 (105) 100 08/07/18 09:00 Room Air Intake and Output 08/07/18 08/08/18 19:00 07:00 Intake Total 1075.000 ml 367.416 ml Output Total 1 ml Balance 1074.000 ml 367.416 ml Intake Oral 800 ml IV Total 275.000 ml 367.416 ml Output Urine Total 1 ml # Voids 5 4 # Bowel Movements 2 Laboratory Tests 08/07/18 17:00: Vancomycin Level Trough 25.2H 08/08/18 06:50: Sodium Level 144, Potassium Level 3.5, Chloride Level 108H, Carbon Dioxide Level 30, Anion Gap 6, Blood Urea Nitrogen 12, Creatinine 0.7, Estimat Glomerular Filtration Rate > 60, Glucose Level 130H, Calcium Level 8.4L Height (Feet): 5 Height (Inches): 4.00 Weight (Pounds): 171 Objective GENERAL: Alert, awake, oriented. LUNGS: Decreased breath sounds bilaterally. HEART: S1 and S2 regular. ABDOMEN: Soft and nontender. EXTREMITIES: No cyanosis. No clubbing. NEURO: No changes. Procedure: CT T Spine no Contrast EXAM: CT Thoracic Spine Without Intravenous Contrast CLINICAL HISTORY: MASS TECHNIQUE: Axial computed tomography images of the thoracic spine without intravenous contrast. CTDI is 22.0 2 mGy and DLP is 722.2 mGy-cm. One or more of the following dose reduction techniques were used: automated exposure control, adjustment of the mA and/or kV according to patient size, use of iterative reconstruction technique. COMPARISON: No relevant prior studies available. FINDINGS: Vertebrae: Diffuse lytic lesions consistent with multiple myeloma or metastasis. Pathologic fracture involving the superior endplate of T2 and the inferior endplate of T6. No retropulsion. Discs/spinal canal/neural foramina: No acute process. Lungs: Bilateral consolidative atelectasis. Pleural space: Trace left pleural effusion. Heart: Cardiomegaly. Thyroid: 9 mm nodule in the right lobe of the thyroid gland. IMPRESSION: Diffuse lytic lesions consistent with multiple myeloma or metastasis. Pathologic fracture involving the superior endplate of T2 and the inferior endplate of T6. No retropulsion. Procedure: CT L Spine no Contrast EXAM: CT Lumbar Spine Without Intravenous Contrast CLINICAL HISTORY: MASS TECHNIQUE: Axial computed tomography images of the lumbar spine without intravenous contrast. CTDI is 13.86 mGy and DLP is 342.27 mGy-cm. One or more of the following dose reduction techniques were used: automated exposure control, adjustment of the mA and/or kV according to patient size, use of iterative reconstruction technique. COMPARISON: No relevant prior studies available. FINDINGS: Vertebrae: Diffuse lytic lesions consistent with metastasis or multiple myeloma. Pathologic fracture in the interim endplate of L5. No retropulsion. Discs/spinal canal/neural foramina: No acute process. Soft tissues: Subcutaneous edema in the back. IMPRESSION: Diffuse lytic lesions consistent with metastasis or multiple myeloma. Pathologic fracture in the interim endplate of L5. No retropulsion. Procedure: CT Pelvis no Contrast EXAM: CT Pelvis Without Intravenous Contrast CLINICAL HISTORY: MASS TECHNIQUE: Axial computed tomography images of the pelvis without intravenous contrast. CTDI is 12.29 mGy and DLP is 333 mGy-cm. One or more of the following dose reduction techniques were used: automated exposure control, adjustment of the mA and/or kV according to patient size, use of iterative reconstruction technique. COMPARISON: No relevant prior studies available. FINDINGS: Intraperitoneal space: Small amount of fluid in the pelvis. Bladder: Unremarkable. Reproductive: Unremarkable. Bones/joints: No acute fracture or dislocation. Numerous lytic lesions in the osseous structures suggesting metastasis or multiple myeloma. Soft tissues: Subcutaneous edema in the back. Vasculature: Unremarkable. No lower abdominal aortic aneurysm. Lymph nodes: No enlarged lymph nodes. IMPRESSION: 1. No acute fracture or dislocation. 2. Numerous lytic lesions in the osseous structures suggesting metastasis or multiple myeloma. Ernesto Avila Aug 08, 2018 08:45
[2018-08-08] MEDS: Nystatin Susp 500,000 units/5ml ORAL SCH ×2 (09:17→13:54)
[2018-08-08] MEDS: Dorzolamide 2% 10ml Btl LEFT EYE SCH (09:17)
[2018-08-08] MEDS: Vitamin D 1000 IU Tab ORAL SCH (09:18)
[2018-08-08] MEDS: Anastrazole 1mg tab ORAL SCH (09:18)
[2018-08-08] MEDS: Bisacodyl EC 5mg tab ORAL SCH (09:18)
[2018-08-08] MEDS: Lyrica 75mg cap ORAL SCH ×2 (09:18→13:56)
[2018-08-08] MEDS: LORazepam 0.5mg tab ORAL SCH ×2 (09:19→13:54)
[2018-08-08] MEDS: Naloxegol Oxalate 25mg tab ORAL SCH (09:19)
[2018-08-08] MEDS: Enoxaparin 40mg Inj SUBQ SCH (09:28)
--- NOTE | 2018-08-08 11:02 | NUR ---
*-* INSURANCE *-* ALL CLINICALS AND REVIEWS HAVE BEEN FAXED: LEONOR MONAHAN P: [phone] F: [phone]
--- NOTE | 2018-08-08 11:54 | Hematology/Onc Progress Note ---
Assessment/Plan Assessment/Plan ASSESSMENT AND PLAN: # Metastatic breast cancer with visceral mets, to the spine as well as the brain , in regards to her treatment, she was diagnosed approximately 3 months ago, has seen several doctors at [facility], has been initially on ibrance and anastrozaole, the ibrance has since been discontinued, she is at this time only on anastrazole, and she has been getting lupron treatment once a month as well, she is also very likely BRCA ++ because she has 3 grandma siblings (3 great aunts) and also an aunt of her grandma who had all breast cancer at a young age , she has 2 young kids --> at this time, continue anastrazole 1mg po daily --> continue lupron once a month as well --> prognosis unfortunately is poor given brain mets --> neuro eval to see if disease is worse, to get mri of the brain and spine as well --> she is to see rad onc as an outpatient as well --> she is to see medical oncology as outpatient --> to get testing for BRCA as well given she has 2 young kids, has three great aunts with breast cancer as well as a grandmas aunt at a young age --> unfortunately prognosis is poor for this young lady --> 08/04 imaging: multiple CT imaging suggest of metastasis # Decreased white blood cell count, unspec (aka leukopenia) - wbc under 4.5k, could be related to infection v splenomegaly v meds, could be due to chemo --> if the total ANC is less than 2000, may consider neupogen --> continue antibiotics with ID service, appreciate recs --> medications have been reviewed --> hepatitis and hiv have been ordered --> CT of abd/spine show multiple mets # Anemia of chronic disease due to underlying chronic medical issues, multifactorial --> Currently stable with Hgb >10. --> Hgb goal >7. Transfuse prn. # Vision Loss, Right eye # Seizure ppx. Continue home dosage of Keppra at this time. Patient denies ever having had a seizure. # Intractable back pain. The time note is entered does not reflect time patient was examined. GREATLY APPRECIATE CONSULTATION. Subjective Allergies: Coded Allergies: No Known Allergies (Unverified , 08/02/18) All Systems: reviewed and negative except above Subjective 08/05: Pt awake and alert. No signs acute distress. Several CT imaging reviewed, shows metastasis. Pt with poor prognosis. 08/06: Pt in bed reports pain is tolerated, no acute events 08/07: Pt awake and alert. No sob, afebrile. 08/08: Pt sitting in bed, eating breakfast. In no apparent distress at this time. States pain is tolerable at this time. Transfer to SNF pending. Objective Objective Current Medications Medications (Trade) Dose Ordered Sig/Rahul Route PRN Reason Start Time Stop Time Status Last Admin Dose Admin Acetaminophen (Tylenol) 500 mg Q4HR PRN ORAL TEMPERATURE GREATER THAN 100.4 08/03/18 01:00 09/02/18 00:59 Acetaminophen (Tylenol) 500 mg Q6H PRN ORAL Mild Pain (Pain Scale 1-3) 08/02/18 23:30 09/01/18 23:29 Anastrozole (Arimidex) 1 mg DAILY ORAL 08/03/18 09:00 09/02/18 08:59 08/08/18 09:18 Bisacodyl (Dulcolax) 10 mg DAILY RECTAL 08/03/18 09:00 09/02/18 08:59 08/08/18 09:20 Bisacodyl (Dulcolax) 15 mg DAILY ORAL 08/03/18 09:00 09/02/18 08:59 08/08/18 09:18 Chlorhexidine Gluconate (Shirley-Hex 2%) 1 applic DAILY@2000 TOPIC 08/06/18 20:00 09/05/18 19:59 08/07/18 20:37 Clonazepam (KlonoPIN) 0.5 mg Q6H ORAL 08/04/18 17:00 08/11/18 16:59 08/08/18 11:40 Dexamethasone (Decadron) 2 mg BID ORAL 08/03/18 18:00 09/02/18 17:59 08/08/18 09:19 Dorzolamide HCl (Trusopt) 1 drop BID LEFT EYE 08/03/18 09:00 09/02/18 08:59 08/08/18 09:17 Enoxaparin Sodium (Lovenox) 40 mg DAILY SUBQ 08/03/18 09:00 09/02/18 08:59 08/08/18 09:28 Hydromorphone HCl (Dilaudid) 2 mg Q3H PRN IVP Severe Pain (Pain Scale 7-10) 08/03/18 09:45 08/10/18 09:44 08/08/18 09:32 Levetiracetam (Keppra) 500 mg EVERY 12 HOURS ORAL 08/03/18 09:00 09/02/18 08:59 08/08/18 09:29 Lidocaine (Lidoderm 5% PATCH) 2 patch DAILY TDERMAL 08/06/18 09:15 09/05/18 09:14 Lorazepam (Ativan) 0.5 mg THREE TIMES A DAY ORAL 08/03/18 09:00 08/10/18 08:59 08/08/18 09:19 Magnesium Hydroxide (Mom) 30 ml BEDTIME ORAL 08/03/18 21:00 09/02/18 20:59 08/07/18 20:36 Methadone HCl (Methadone HCl) 10 mg Q6HR ORAL 08/03/18 12:00 08/10/18 09:44 08/08/18 05:06 Metronidazole (Flagyl) 500 mg Q8HR ORAL 08/03/18 14:00 08/15/18 13:59 08/08/18 05:05 Naloxegol (Movantik) 25 mg DAILY ORAL 08/04/18 09:00 09/03/18 08:59 08/08/18 09:19 Naloxone HCl (Narcan) 0.2 mg Q2M PRN IVP respritory distress (RR<12) 08/03/18 09:45 09/02/18 09:44 Nystatin (Nystatin) 5 ml FOUR TIMES A DAY ORAL 08/03/18 09:00 08/10/18 08:59 08/08/18 09:17 Pantoprazole (Protonix) 40 mg DAILY ORAL 08/03/18 15:00 09/02/18 14:59 08/08/18 09:18 Polyethylene Glycol (Miralax) 17 gm BEDTIME PRN ORAL Constipation 08/02/18 23:30 09/01/18 23:29 Pregabalin (Lyrica) 75 mg THREE TIMES A DAY ORAL 08/03/18 09:45 09/02/18 09:44 08/08/18 09:18 Vancomycin HCl (Vanco rx to dose) 1 ea DAILY PRN MISC PER PHARMACY 08/04/18 13:45 09/03/18 13:44 Vancomycin HCl 1 gm/Dextrose 275 ml @ 183.708 mls/hr Q8H IVPB 08/08/18 01:00 08/13/18 00:59 08/08/18 09:16 Vitamin D (Vitamin D) 2,000 intlu DAILY ORAL 08/03/18 09:00 09/02/18 08:59 08/08/18 09:18 Zolpidem Tartrate (Ambien) 5 mg BEDTIME PRN ORAL Insomnia 08/02/18 23:30 08/09/18 23:29 08/04/18 21:44 Last 24 Hour Vital Signs Date Time Temp Pulse Resp B/P (MAP) Pulse Ox O2 Delivery O2 Flow Rate FiO2 08/08/18 08:00 98.0 94 20 121/85 (97) 99 08/08/18 04:00 98.4 88 16 113/74 (87) 94 08/08/18 00:00 98.1 85 18 136/95 (109) 98 08/07/18 21:00 Room Air 08/07/18 20:00 98.2 83 16 121/82 (95) 97 08/07/18 18:25 97.8 08/07/18 16:00 97.8 85 18 138/99 (112) 98 08/07/18 15:58 97.5 08/07/18 12:00 97.5 69 18 135/90 (105) 100 08/07/18 09:00 Room Air 08/07/18 04:00 97.5 69 18 129/72 (91) 100 08/07/18 00:00 98.2 73 16 121/90 (100) 98 08/06/18 21:00 Room Air 08/06/18 20:00 98.5 77 16 112/71 (85) 96 08/06/18 16:00 98.1 80 18 128/83 (98) 98 08/06/18 12:00 97.9 88 18 130/79 (96) 97 Intake and Output 08/07/18 08/08/18 19:00 07:00 Intake Total 1075.000 ml 367.416 ml Output Total 1 ml Balance 1074.000 ml 367.416 ml Intake Oral 800 ml IV Total 275.000 ml 367.416 ml Output Urine Total 1 ml # Voids 5 4 # Bowel Movements 2 Labs Test 08/06/18 10:15 08/07/18 17:00 08/08/18 06:50 Vancomycin Level Trough 13.6 ug/mL (5.0-12.0) 25.2 ug/mL (5.0-12.0) Sodium Level 144 MMOL/L (136-145) Potassium Level 3.5 MMOL/L (3.5-5.1) Chloride Level 108 MMOL/L (98-107) Carbon Dioxide Level 30 MMOL/L (21-32) Anion Gap 6 mmol/L (5-15) Blood Urea Nitrogen 12 mg/dL (7-18) Creatinine 0.7 MG/DL (0.55-1.30) Estimat Glomerular Filtration Rate > 60 mL/min (>60) Glucose Level 130 MG/DL (74-106) Calcium Level 8.4 MG/DL (8.5-10.1) Height (Feet): 5 Height (Inches): 4.00 Weight (Pounds): 171 Objective PHYSICAL EXAM General Appearance: alert, GCS 15, Chronically Ill Head: other - craniotomy site C/D/I ENT: hearing grossly normal Neck: limited range of motion Respiratory: chest non-tender, lungs clear Cardiovascular #1: normal inspection, regular rate, rhythm Gastrointestinal: normal inspection, non tender Genitourinary: normal inspection Neurologic: alert, oriented x3, responsive, motor weakness - right upper extremity 4/5, some tremor Fred Zhang MD Aug 08, 2018 11:54
[2018-08-08 12:00] VITALS: BP 133/94
--- NOTE | 2018-08-08 13:24 | Infectious Diseases Prog Note ---
Assessment/Plan Assessment/Plan IMPRESSION: 1. 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 3. Multiple pathologic fracture in thoracic and lumbar spine. 4. Metastatic breast cancer according to the patient it was originated from right breast. The patient gets Ibrance and anastrozole initially, now getting just anastrozole, get also radiation. 5. Metastatic brain lesion, had surgery. 6. Anemia of chronic disease. RECOMMENDATION: We will continue with vancomycin and Flagyl until 08/15 Agree with discharge Subjective ROS Limited/Unobtainable: No Respiratory: Reports: no symptoms Cardiovascular: Reports: no symptoms Gastrointestinal/Abdominal: Reports: no symptoms Genitourinary: Reports: no symptoms Musculoskeletal: Reports: pain, other - back pain Allergies: Coded Allergies: No Known Allergies (Unverified , 08/02/18) Objective Vital Signs Last 24 Hour Vital Signs Date Time Temp Pulse Resp B/P (MAP) Pulse Ox O2 Delivery O2 Flow Rate FiO2 08/08/18 12:00 97.7 96 133/94 (107) 08/08/18 08:00 98.0 94 20 121/85 (97) 99 08/08/18 04:00 98.4 88 16 113/74 (87) 94 08/08/18 00:00 98.1 85 18 136/95 (109) 98 08/07/18 21:00 Room Air 08/07/18 20:00 98.2 83 16 121/82 (95) 97 08/07/18 18:25 97.8 08/07/18 16:00 97.8 85 18 138/99 (112) 98 08/07/18 15:58 97.5 Height (Feet): 5 Height (Inches): 4.00 Weight (Pounds): 171 HEENT: mucous membranes moist Respiratory/Chest: lungs clear Cardiovascular: normal rate, other - left arm PICC line Abdomen: soft, non tender Extremities: no edema Laboratory Tests Test 08/07/18 17:00 08/08/18 06:50 Vancomycin Level Trough 25.2 ug/mL (5.0-12.0) H Sodium Level 144 MMOL/L (136-145) Potassium Level 3.5 MMOL/L (3.5-5.1) Chloride Level 108 MMOL/L (98-107) H Carbon Dioxide Level 30 MMOL/L (21-32) Anion Gap 6 mmol/L (5-15) Blood Urea Nitrogen 12 mg/dL (7-18) Creatinine 0.7 MG/DL (0.55-1.30) Estimat Glomerular Filtration Rate > 60 mL/min (>60) Glucose Level 130 MG/DL (74-106) H Calcium Level 8.4 MG/DL (8.5-10.1) L Current Medications Medications (Trade) Dose Ordered Sig/Rahul Route PRN Reason Start Time Stop Time Status Last Admin Dose Admin Acetaminophen (Tylenol) 500 mg Q4HR PRN ORAL TEMPERATURE GREATER THAN 100.4 08/03/18 01:00 09/02/18 00:59 Acetaminophen (Tylenol) 500 mg Q6H PRN ORAL Mild Pain (Pain Scale 1-3) 08/02/18 23:30 09/01/18 23:29 Anastrozole (Arimidex) 1 mg DAILY ORAL 08/03/18 09:00 09/02/18 08:59 08/08/18 09:18 Bisacodyl (Dulcolax) 10 mg DAILY RECTAL 08/03/18 09:00 09/02/18 08:59 08/08/18 09:20 Bisacodyl (Dulcolax) 15 mg DAILY ORAL 08/03/18 09:00 09/02/18 08:59 08/08/18 09:18 Chlorhexidine Gluconate (Shirley-Hex 2%) 1 applic DAILY@2000 TOPIC 08/06/18 20:00 09/05/18 19:59 08/07/18 20:37 Clonazepam (KlonoPIN) 0.5 mg Q6H ORAL 08/04/18 17:00 08/11/18 16:59 08/08/18 11:40 Dexamethasone (Decadron) 2 mg BID ORAL 08/03/18 18:00 09/02/18 17:59 08/08/18 09:19 Dorzolamide HCl (Trusopt) 1 drop BID LEFT EYE 08/03/18 09:00 09/02/18 08:59 08/08/18 09:17 Enoxaparin Sodium (Lovenox) 40 mg DAILY SUBQ 08/03/18 09:00 09/02/18 08:59 08/08/18 09:28 Hydromorphone HCl (Dilaudid) 2 mg Q3H PRN IVP Severe Pain (Pain Scale 7-10) 08/03/18 09:45 08/10/18 09:44 08/08/18 09:32 Levetiracetam (Keppra) 500 mg EVERY 12 HOURS ORAL 08/03/18 09:00 09/02/18 08:59 08/08/18 09:29 Lidocaine (Lidoderm 5% PATCH) 2 patch DAILY TDERMAL 08/06/18 09:15 09/05/18 09:14 Lorazepam (Ativan) 0.5 mg THREE TIMES A DAY ORAL 08/03/18 09:00 08/10/18 08:59 08/08/18 09:19 Magnesium Hydroxide (Mom) 30 ml BEDTIME ORAL 08/03/18 21:00 09/02/18 20:59 08/07/18 20:36 Methadone HCl (Methadone HCl) 10 mg Q6HR ORAL 08/03/18 12:00 08/10/18 09:44 08/08/18 12:10 Metronidazole (Flagyl) 500 mg Q8HR ORAL 08/03/18 14:00 08/15/18 13:59 08/08/18 05:05 Naloxegol (Movantik) 25 mg DAILY ORAL 08/04/18 09:00 09/03/18 08:59 08/08/18 09:19 Naloxone HCl (Narcan) 0.2 mg Q2M PRN IVP respritory distress (RR<12) 08/03/18 09:45 09/02/18 09:44 Nystatin (Nystatin) 5 ml FOUR TIMES A DAY ORAL 08/03/18 09:00 08/10/18 08:59 08/08/18 09:17 Pantoprazole (Protonix) 40 mg DAILY ORAL 08/03/18 15:00 09/02/18 14:59 08/08/18 09:18 Polyethylene Glycol (Miralax) 17 gm BEDTIME PRN ORAL Constipation 08/02/18 23:30 09/01/18 23:29 Pregabalin (Lyrica) 75 mg THREE TIMES A DAY ORAL 08/03/18 09:45 09/02/18 09:44 08/08/18 09:18 Vancomycin HCl (Vanco rx to dose) 1 ea DAILY PRN MISC PER PHARMACY 08/04/18 13:45 09/03/18 13:44 Vancomycin HCl 1 gm/Dextrose 275 ml @ 183.708 mls/hr Q8H IVPB 08/08/18 01:00 08/13/18 00:59 08/08/18 09:16 Vitamin D (Vitamin D) 2,000 intlu DAILY ORAL 08/03/18 09:00 09/02/18 08:59 08/08/18 09:18 Zolpidem Tartrate (Ambien) 5 mg BEDTIME PRN ORAL Insomnia 08/02/18 23:30 08/09/18 23:29 08/04/18 21:44 Gene Cosme MD Aug 08, 2018 13:24
--- NOTE | 2018-08-08 14:46 | Cardiology Report ---
APPROVED REPORT EKG Measurement Heart [id number] Normal sinus rhythm Nonspecific T wave abnormality Abnormal ECG
--- NOTE | 2018-08-08 15:11 | NUR ---
NURSE NOTES: PT WAS DISCHARGED IN STABLE CONDITION. BELONGINGS CHECKED AT BEDSIDE, ALL BELONGINGS ACCOUNTED. PT HAD $20 INSTEAD OF $36. PT STATES SHE USED THE MONEY ON VENDING MACHINES. PT LEFT WITH LEFT UPPER ARM PICC LINE, DRESSING CHANGED TODAY BY RN. RN GAVE REPORT TO NEVILLE BERNARD. NEVILLE MADE AWARE OF VANCO 1GM IV Q8H AND FALGYL 500MG PO Q8H X8 DAYS, AND PT WAS SCHEDULED TO HAVE VANCO TROUGH DRAWN TOMORROW AT 0030HRS. ALSO MADE AWARE OF NEED TO FOLLOW UP WITH SURGEON FOR FOLLOW UP POST-CRANIOTOMY.
--- NOTE | 2018-08-09 12:38 | Discharge Summary ---
Discharge Summary Discharge Summary _ DATE OF ADMISSION: 08/02/2018 DATE OF DISCHARGE: 08/08/2018 DISCHARGED BY: Dr. Tawana Dalton CONSULTANTS: Dr. Gene Flaherty [facility] COURSE: Patient is a 37-year-old female, of metastatic breast CA. The patient was noted to have [place] [facility] also had previous craniectomy as well as treatment with IV antibiotics due to intracerebral infection. She was on high-dose IV narcotics and was discharged the day prior. She complained of persistent pain since discharge. She was taking large doses of morphine as well as Dilaudid with transitioned to a fentanyl patch for pain. She reported pain at the mid back. She had previous history of metastatic lesion to the thoracic spine. She had right-sided weakness from brain tumor. She had previously been on Keppra for seizure prophylaxis. On evaluation at ED, vital signs were stable. Blood work did not show any leukocytosis. Hemoglobin was 10.6, hematocrit 32. Electrolytes were normal. Troponin was negative. D-dimer was elevated to 1.8. Urine hCG was negative. Chest x-ray done showed minimal left basilar atelectasis. Patient was arranged transferred to [facility], however, patient's insurance was unable to arrange transfer in a timely manner. Patient was then admitted for inpatient management of intractable back pain. Neurologist was consulted. X-ray of the thoracic and lumbar spine and hip were ordered to check for bony mets. Thoracic and lumbar spine x-ray appeared within normal limits. Hip x-ray did not show any fracture or dislocation. Brain MRI showed a left convex lesion with irregular lobular peripheral enhancement. medical lab specialist was consulted. Patient was started on methadone 10 mg every 6 hours [id number]. She was given Dilaudid as needed as well as Lyrica. ID was consulted. Patient was at [facility] for brain abscess and received vancomycin and Flagyl. She was already given 2 weeks of treatment and would eventually need to continue for 2 more weeks. Per ID recommendation, patient was continued on vancomycin and Flagyl. She was placed on isolation. No need for isolation upon discharge. Oncologist was consulted. Patient had metastatic brain cancer with mets to the spine as well as brain. She was diagnosed approximately 3 months ago and was seen at [facility]. Patient was initially on Ibrance and anastrozole. Ibrance was discontinued. She was also getting Lupron treatment. She was continued on anastrozole 1 mg daily and Lupron once a month. Patient prognosis poor due to brain metastases. She was continued on seizure prophylaxis. She was given dexamethasone 2 mg twice daily. She was given pain management with transition of IV to p.o. medications. CT of the hip, thoracic and lumbar spine showed diffuse pneumatosis lytic lesions consistent with multiple myeloma or metastasis. There were pathologic fractures seen on the superior endplate of T2 and inferior endplate of T6; and pathologic fracture L5. PICC line was inserted to the left arm. Patient was cleared for discharge, to continue antibiotic treatment until 08/15/2018. Patient was discharged to SNF. FINAL DIAGNOSES: Brain abscess Multiple pathologic fracture in thoracic and lumbar spine Metastatic breast CA Metastatic brain lesion Anemia of chronic disease Leukopenia Right eye vision loss Intractable back pain DISPOSITION: Patient was discharged to a SNF. DISCHARGE MEDICATIONS: Refer to Discharge Medication List. Continue antibiotics until 08/15/2018 I have been assigned to complete a discharge summary on this account, I was not involved with the patient's management. Niecy Abebe NP Aug 09, 2018 12:38
--- NOTE | 2018-08-10 13:08 | NUR ---
*-* INSURANCE *-* DISCHARGE SUMMARY HAVE BEEN FAXED: LEONOR MONAHAN P: [phone] F: [phone]
== END 2018-08-08 14:41 | DRG 49 ==
LOC: EDBD 14:36 → EMR 14:55 → 4E 18:05 → EDBEDREQ 18:54
PROC: 02HV33Z Insertion of Infusion Device into Superior Vena Cava, Percutaneous Approach (ICD-10-PCS; principal; 2018-08-07)
PROC: B548ZZA Ultrasonography of Superior Vena Cava, Guidance (ICD-10-PCS; 2018-08-07)
DX: G06.0 Intracranial abscess and granuloma (principal); G93.6 Cerebral edema; C79.51 Secondary malignant neoplasm of bone; C79.31 Secondary malignant neoplasm of brain; C79.89 Secondary malignant neoplasm of other specified sites; M84.58XA Pathological fracture in neoplastic disease, other specified site, initial encounter for fracture; R56.9 Unspecified convulsions; D50.9 Iron deficiency anemia, unspecified; G89.3 Neoplasm related pain (acute) (chronic); Z66 Do not resuscitate; Z80.3 Family history of malignant neoplasm of breast; D63.8 Anemia in other chronic diseases classified elsewhere; H54.61 Unqualified visual loss, right eye, normal vision left eye; C50.911 Malignant neoplasm of unspecified site of right female breast
CPT/HCPCS: 36415; 36569; 70553; 71045; 72020; 72070; 72128; 72131; 72192; 76937; 80048; 80053; 80202; 80299; 81025; 82550; 82553; 83880; 84484; 85025; 85379; 87081; 93005; 96374; 96375; 96376; 99285; A9585

== ENCOUNTER 2018-08-22 15:04 | Emergency (ER) | payer OTHER ==
[~2018-08-22] VITALS: Ht 162.6 cm; Wt 72.6 kg
[~2018-08-22 15:04] MED LIST: ACETAMINOPHEN500 M3 ORAL; ANASTROZOLE1 MG PO; BISACODYL10 M1 RC; BISACODYL5 MG ORAL; CHOLECALCIFEROL1 G1 MC; FENTANYL1 EAC2 TDERMAL; FENTANYL1 EACH TDERMAL; FLAGYL500 MG ORAL; HYDROMORPHO2 MG/1 M5 PO; KEPPRA500 M4 ORAL; KLONOPIN0.5 MG ORAL; LORAZEPAM0.5 MG ORAL; LOVENOX10 M4 SUBQ; LUPRON DEPOT3.75 M1 IM; METRONIDAZOLE500 MG ORAL; MILK OF MA400 MG/51 ORAL; MORPHINE 22 MG/1 ML IV; NYSTATIN100000 UN1 ORAL; POLYETHYLENE GL17 GM ORAL; PROTONIX40 MG ORAL; TRUSOPT10 ML LEFT EYE; VANCOMYCIN HC1.25 GM IV; VANCOMYCIN IV; VANCOMYCIN1 GM IV; VANCOMYCIN1 GM/200 M IV; VITAMIN D1000 UNI1 ORAL; VOLTAREN100 G1 TP; ZOLEDRONIC4 MG/100 M IV; ZOLPIDEM TARTRAT5 MG ORAL
[2018-08-22] MEDS ORDERED: DEXAMETHASONE2 MG PO (15:15)
[2018-08-22] MEDS ORDERED: LYRICA100 MG ORAL (15:15)
[2018-08-22] MEDS ORDERED: LIDOCAINE700 M1 TP (15:15)
[2018-08-22] MEDS ORDERED: METHADONE10 MG/1 M1 ORAL (15:15)
[2018-08-22] MEDS ORDERED: VITAMIN D1000 UNI1 ORAL (15:15)
[2018-08-22] MEDS ORDERED: ATIVAN0.5 MG ORAL (15:15)
--- NOTE | 2018-08-22 15:20 | NUR ---
ED Nurse Note: patient brought in to ER by ambulance from [facility] due to chronic but recently got worse back pain 12/13. Patient alert and oriented x4 and bedbound. skin clean and intact. Rt ankle pitting edema +2 noted. pt is in gown and on alarm security or surveillance monitor.
[2018-08-22 15:23] VITALS: BP 116/74
--- NOTE | 2018-08-22 15:23 | NUR ---
ED Nurse Note: Pt has PICC line with 2 lumen on Lt upper arm.
--- NOTE | 2018-08-22 15:25 | NUR ---
ED Nurse Note: abdominal distention noted.
[2018-08-22] MEDS ORDERED: Morphine Sulfate 10mg/ml Inj IVP ONE (15:30)
[2018-08-22 16:01] LABS: EOSINOPHILS % (AUTO) 0.4 % (0.0-3.0); HEMATOCRIT 28.4 % (37.0-47.0); HEMOGLOBIN 8.8 G/DL (12.0-16.0); LYMPHOCYTES % (AUTO) 12.4 % (20.0-45.0); MEAN CORPUSCULAR VOLUME 81 FL (80-99); MONOCYTES % (AUTO) 7.4 % (1.0-10.0); NEUTROPHILS % (AUTO) 77.8 % (45.0-75.0); PLATELET COUNT 164 K/UL (150-450); RED BLOOD COUNT 3.52 M/UL (4.20-5.40); RED CELL DISTRIBUTION WIDTH 16.8 % (11.6-14.8); WHITE BLOOD COUNT 12.8 K/UL (4.8-10.8)
[2018-08-22 16:18] LABS: APPEARANCE,URINE CLEAR; BILIRUBIN, URINE NEGATIVE (NEGATIVE); COLOR,URINE PALE YELLOW; GLUCOSE, URINE (UA) NEGATIVE (NEGATIVE); KETONES,URINE NEGATIVE (NEGATIVE); LEUKOCYTE ESTERASE ,URINE NEGATIVE (NEGATIVE); NITRITE,URINE NEGATIVE (NEGATIVE); PH,URINE 8 (4.5-8.0); PROTEIN,URINE NEGATIVE (NEGATIVE); UROBILINOGEN,URINE NORMAL MG/DL (0.0-1.0)
[2018-08-22 16:19] LABS: ANION GAP 9 mmol/L (5-15); BLOOD UREA NITROGEN 15 mg/dL (7-18); CALCIUM 8.8 MG/DL (8.5-10.1); CARBON DIOXIDE 29 MMOL/L (21-32); CHLORIDE 102 MMOL/L (98-107); CREATININE 0.7 MG/DL (0.55-1.30); POTASSIUM 3.8 MMOL/L (3.5-5.1); SODIUM 140 MMOL/L (136-145)
[2018-08-22 16:33] LABS: ALANINE AMINOTRANSFERASE 23 U/L (12-78); ALBUMIN 2.9 G/DL (3.4-5.0); ALBUMIN/GLOBULIN RATIO 0.7 (1.0-2.7); ALKALINE PHOSPHATASE 162 U/L (46-116); ASPARTATE AMINO TRANSFERASE 21 U/L (15-37); BILIRUBIN,TOTAL 0.2 MG/DL (0.2-1.0); CKMB < 0.5 NG/ML (0.0-3.6); CREATINE KINASE 57 U/L (26-308)
--- NOTE | 2018-08-22 16:47 | Diagnostic Imaging Report ---
Indication: Chest pain Technique: One view of the chest Comparison: 08/02/2018 Findings: In place a left arm PICC. Lungs and pleural spaces are clear. Heart size is normal. Previously demonstrated left basilar atelectasis is no longer evident Impression: No acute process
--- NOTE | 2018-08-22 16:48 | NUR ---
ED Nurse Note: per ERMD pt is ok to eat. sandwich and juice provided.
--- NOTE | 2018-08-22 16:59 | NUR ---
ED Nurse Note: called for a report. no answer. will call back again.
--- NOTE | 2018-08-22 17:04 | NUR ---
ED Nurse Note: per Ivan Diaz is taking another report. they will call me back.
--- NOTE | 2018-08-22 17:18 | NUR ---
ED Nurse Note: called back to Ray. no answered. will try again.
--- NOTE | 2018-08-22 17:20 | Emergency Room Report ---
History of Present Illness General Chief Complaint: Pain Source: Patient, Medical Record, EMS Present Illness HPI This patient has a complicated recent medical history. That she was diagnosed with metastatic breast cancer 4 months ago. This was identified after being found to have a metastatic brain tumor. She underwent a craniotomy at [facility]. She had undergo multiple subsequent craniotomy secondary to an abscess formation in her brain. She had been on prolonged vancomycin until recently. She had been undergoing chemotherapy for her metastatic breast cancer, however, this had been on hold since the identification of the brain abscesses. She plans to restart chemotherapy next week. She was recently discharged 2 weeks ago after being admitted for uncontrolled pain. She was started on a new pain regimen. She states that over the past week she has had breakthrough pain that is not being controlled by her current pain regimen. She also notes that her abdomen has been distended and her legs are swollen. She states that has been occurring over the past 2 weeks. She does not have pain in her abdomen or legs. She denies fever or chills. She denies nausea or vomiting. She states she is been having normal bowel movements. She has no other complaints. Allergies: Coded Allergies: No Known Allergies (Unverified , 08/02/18) Patient History Past Medical History: see triage record, other - Hemiplegia R. side, L. eye blindness. Metastatic CA. Past Surgical History: other - Multiple craniectomies Social History: Denies: smoking, alcohol use, drug use Reviewed Nursing Documentation: PMH: Agreed; PSxH: Agreed Nursing Documentation-PMH Hx Cancer: Yes - Breast, Intracranial Abcess, Granuloma Hx Neurological Problems: Yes - FLACCID HEMIPLEGIA AFFECTING RIGHT DOMINANT SIDE Hx Weakness: Yes Review of Systems All Other Systems: negative except mentioned in HPI Physical Exam Vital Signs Date Time Temp Pulse Resp B/P (MAP) Pulse Ox O2 Delivery O2 Flow Rate FiO2 08/22/18 15:04 98.1 92 15 101/65 (77) 97 Room Air Sp02 EP Interpretation: reviewed, normal General Appearance: no apparent distress, alert, GCS 15, non-toxic Head: normocephalic, atraumatic Eyes: left eye other - Protruding. ENT: hearing grossly normal, normal pharynx, no angioedema, normal voice Neck: normal inspection Respiratory: chest non-tender, lungs clear, normal breath sounds, no respiratory distress, no retraction, no accessory muscle use, speaking full sentences Cardiovascular #1: regular rate, rhythm, no edema Gastrointestinal: normal bowel sounds, non tender, soft, no guarding, no rebound, distended Rectal: deferred Musculoskeletal: non-tender, swelling - BLE swelling feet to mid-calve. Neurologic: alert, oriented x3, responsive, speech normal, other - R. hemiparesis. At baseline. Psychiatric: judgement/insight normal, memory normal, mood/affect normal, no suicidal/homicidal ideation Skin: warm/dry, well hydrated, other - See RN skin exam. Medical Decision Making Diagnostic Impression: Primary Impression: Bony metastasis Additional Impressions: Brain metastasis Metastatic breast cancer Ascites Uncontrolled pain Anemia Lactic acidosis ER Course This patient has a very complicated medical history. She has stage IV metastatic breast cancer. She has a history of metastasis everywhere. She has new ascites that is likely malignant in etiology. She also has a new anemia. She did have stable vital signs. She was given morphine for pain control. The patient's insurance company requested her transfer to [facility]. Although the patient's medical history is very complicated, she is stable for transfer for further evaluation however like [facility]. This patient has a very poor prognosis. Laboratory Tests Test 08/22/18 15:34 08/22/18 15:35 Urine Color Pale yellow Urine Appearance Clear Urine pH 8 (4.5-8.0) Urine Specific [place] 1.015 (1.005-1.035) Urine Protein Negative (NEGATIVE) Urine Glucose (UA) Negative (NEGATIVE) Urine Ketones Negative (NEGATIVE) Urine Blood Negative (NEGATIVE) Urine Nitrite Negative (NEGATIVE) Urine Bilirubin Negative (NEGATIVE) Urine Urobilinogen Normal MG/DL (0.0-1.0) Urine Leukocyte Esterase Negative (NEGATIVE) White Blood Count 12.8 K/UL (4.8-10.8) H Red Blood Count 3.52 M/UL (4.20-5.40) L Hemoglobin 8.8 G/DL (12.0-16.0) L Hematocrit 28.4 % (37.0-47.0) L Mean Corpuscular Volume 81 FL (80-99) Mean Corpuscular Hemoglobin 25.0 PG (27.0-31.0) L Mean Corpuscular Hemoglobin Concent 31.0 G/DL (32.0-36.0) L Red Cell Distribution Width 16.8 % (11.6-14.8) H Platelet Count 164 K/UL (150-450) Mean Platelet Volume 5.8 FL (6.5-10.1) L Neutrophils (%) (Auto) 77.8 % (45.0-75.0) H Lymphocytes (%) (Auto) 12.4 % (20.0-45.0) L Monocytes (%) (Auto) 7.4 % (1.0-10.0) Eosinophils (%) (Auto) 0.4 % (0.0-3.0) Basophils (%) (Auto) 2.0 % (0.0-2.0) Sodium Level 140 MMOL/L (136-145) Potassium Level 3.8 MMOL/L (3.5-5.1) Chloride Level 102 MMOL/L (98-107) Carbon Dioxide Level 29 MMOL/L (21-32) Anion Gap 9 mmol/L (5-15) Blood Urea Nitrogen 15 mg/dL (7-18) Creatinine 0.7 MG/DL (0.55-1.30) Estimate Glomerular Filtration Rate > 60 mL/min (>60) Glucose Level 150 MG/DL (74-106) H Lactic Acid Level 2.80 mmol/L (0.4-2.0) H Calcium Level 8.8 MG/DL (8.5-10.1) Total Bilirubin 0.2 MG/DL (0.2-1.0) Aspartate Amino Transferase (AST) 21 U/L (15-37) Alanine Aminotransferase (ALT) 23 U/L (12-78) Alkaline Phosphatase 162 U/L (46-116) H Total Creatine Kinase 57 U/L (26-308) Creatine Kinase MB < 0.5 NG/ML (0.0-3.6) Creatine Kinase MB Relative Index 0.8 Total Protein 6.9 G/DL (6.4-8.2) Albumin 2.9 G/DL (3.4-5.0) L Globulin 4.0 g/dL Albumin/Globulin Ratio 0.7 (1.0-2.7) L EKG Diagnostic Results Rate: normal Rhythm: NSR ST Segments: no acute changes Rhythm Strip Diag. Results EP Interpretation: yes Rate: 90's Rhythm: NSR, no PVC's, no ectopy Chest X-Ray Diagnostic Results Chest X-Ray Diagnostic Results : Chest X-Ray Ordered: Yes # of Views/Limited/Complete: 1 View Indication: Other EP Interpretation: Yes Interpretation: no consolidation, no effusion, no pneumothorax, no acute cardiopulmonary disease Impression: No acute disease Electronically Signed by: Esme Baumann DO Last Vital Signs Date Time Temp Pulse Resp B/P (MAP) Pulse Ox O2 Delivery O2 Flow Rate FiO2 08/22/18 16:04 98.1 08/22/18 15:38 87 19 Room Air 08/22/18 15:23 116/74 100 Disposition: XFER SHT-TRM HOSP Condition: Stable Referrals: NON PHYSICIAN (PCP) Esme Baumann DO Aug 22, 2018 17:20
--- NOTE | 2018-08-22 17:50 | NUR ---
ED Nurse Note: report given to EMS.
--- NOTE | 2018-08-22 17:56 | NUR ---
report given to zeke rivas nursing sheet metal worker supervisor patient is to be transferd via ambulance
[2018-08-22] MEDS ORDERED: Morphine Sulfate 4mg/ml Inj (IV USE ONLY) ONE (18:00)
--- NOTE | 2018-08-22 18:00 | NUR ---
ED Nurse Note: received verbal order to override 4mg ivp from ERMD. 4mg iv given via PICC line.
[2018-08-22 18:20] VITALS: BP 121/76
--- NOTE | 2018-08-22 18:21 | NUR ---
ED Nurse Note: pt left the unit with 2 EMS in stable condition.
[2018-08-22] MEDS ORDERED: Morphine Sulfate 4mg/ml Inj (IV USE ONLY) IVP ONE (18:45)
--- NOTE | 2018-08-25 19:15 | Cardiology Report ---
APPROVED REPORT EKG Measurement Heart [id number] Normal sinus rhythm Normal ECG
== END 2018-08-22 18:48 | disposition short-term general hospital (02) ==
LOC: EDBD 15:04 → EMR 15:30 → EDBEDREQ 15:32 → EMR 18:48
DX: R52 Pain, unspecified (principal); C50.919 Malignant neoplasm of unspecified site of unspecified female breast; C79.31 Secondary malignant neoplasm of brain; C79.51 Secondary malignant neoplasm of bone; R18.8 Other ascites; D64.9 Anemia, unspecified; E87.2 Acidosis; G81.91 Hemiplegia, unspecified affecting right dominant side; H54.62 Unqualified visual loss, left eye, normal vision right eye
CPT/HCPCS: 36415; 71045; 80053; 81003; 82550; 82553; 83605; 85025; 87081; 93005; 96361; 96374; 96376; 99284; J2270

== ENCOUNTER 2018-09-19 22:04 | Emergency (ER) | payer OTHER ==
[~2018-09-19] VITALS: Ht 167.6 cm; Wt 68.0 kg
[~2018-09-19 22:04] MED LIST changes: +ATIVAN0.5 MG ORAL; +DEXAMETHASONE2 MG PO; +LIDOCAINE700 M1 TP; +LYRICA100 MG ORAL; +METHADONE10 MG/1 M1 ORAL
[2018-09-19 22:10] VITALS: BP 111/82
--- NOTE | 2018-09-19 22:10 | NUR ---
ED Nurse Note: Patient brought in by [facility] ambulace for pain 8/10 to lower back area. Patient is originaly from [facility]. VS: 111/76, 82, 21, 98.4, 97%RA. Bed in lowest position. side rail x 2. patient is alert oriented. able to ambulate.
--- NOTE | 2018-09-19 22:34 | Emergency Room Report ---
History of Present Illness General Chief Complaint: Back Pain-No Injury Source: Patient Present Illness HPI Is a 37-year-old female who has a history of metastatic breast cancer. She had metastasis to the brain with infection status post craniotomy at [facility]. She also has mets to her bone. She has been in shelter for about a month. She is getting pain medication there. She presents with chief complaint of back pain and increasing pain. She said her Dilaudid at the shelter is not helping. Denies any fever chills but denies any nausea vomiting. No focal deficit. No change. She was prescribed Duragesic patch before and that seemed to help but it was removed when she was admitted to outside hospital last month. This may be due to insurance. Pt is DNR/DNI. She is scheduled to see a new pain specialist next week. Allergies: Coded Allergies: No Known Allergies (Unverified , 08/02/18) Patient History Past Medical History: see triage record, old chart reviewed Past Surgical History: other Pertinent Family History: none Social History: Denies: smoking Last Menstrual Period: unk Now: No Immunizations: other Reviewed Nursing Documentation: PMH: Agreed; PSxH: Agreed Nursing Documentation-PMH Hx Cancer: Yes - Breast, Intracranial Abcess, Granuloma Hx Neurological Problems: Yes - FLACCID HEMIPLEGIA AFFECTING RIGHT DOMINANT SIDE Hx Weakness: Yes Review of Systems Eye: Denies: eye pain, blurred vision ENT: Denies: ear pain, nose congestion, throat swelling Respiratory: Denies: cough, shortness of breath Cardiovascular: Denies: chest pain, palpitations Gastrointestinal: Denies: abdominal pain, diarrhea, nausea, vomiting Musculoskeletal: Reports: back pain; Denies: joint pain Skin: Denies: rash Neurological: Denies: headache, numbness Endocrine: Denies: increased thirst, increased urine Hematologic/Lymphatic: Denies: easy bruising All Other Systems: negative except mentioned in HPI Physical Exam Vital Signs Date Time Temp Pulse Resp B/P (MAP) Pulse Ox O2 Delivery O2 Flow Rate FiO2 09/19/18 22:04 99.1 90 20 103/69 (80) 97 Room Air vitals normal Sp02 EP Interpretation: reviewed, normal General Appearance: well appearing, no apparent distress, alert Head: normocephalic, other - s/p craniotomy Eyes: bilateral eye PERRL, bilateral eye EOMI ENT: hearing grossly normal, normal pharynx Neck: full range of motion, supple, no meningismus Respiratory: chest non-tender, lungs clear, normal breath sounds Cardiovascular #1: regular rate, rhythm, no murmur Gastrointestinal: normal bowel sounds, non tender, no mass, no organomegaly, no bruit, non-distended Musculoskeletal: back normal, normal range of motion, tender - diffuse tenderness. Psychiatric: mood/affect normal Medical Decision Making Diagnostic Impression: Primary Impression: Metastatic breast cancer Additional Impression: Pain from bone metastases ER Course Patient presents with exacerbation her chronic pain from bony metastasis. Her prognosis is poor and probably less than 6 months. Pain is well controlled with IV Dilaudid here. Patient wanted oncology consult. I explained to her that it is not feasible at this moment in time. She is already has an oncologist and we do not have records of what has been done for her regarding her cancer status. Since the pain is well controlled now, will discharge home. I will put her on Duragesic patch for better baseline pain control. Last Vital Signs Date Time Temp Pulse Resp B/P (MAP) Pulse Ox O2 Delivery O2 Flow Rate FiO2 09/19/18 22:10 21 111/82 97 Room Air 09/19/18 22:04 99.1 90 Status: improved Disposition: XFER SNF Condition: Stable Scripts Fentanyl 100MCG Patch* (DURAGESIC 100MCG*) 1 Each Patch.td72 1 PATCH TDERMAL EVERY 72 HOURS, #10 PATCH Prov: Antoine Smith MD 09/19/18 Additional Instructions: Follow-up with your doctor within 7 days. Keep your appointment with your pain specialist. Return if symptoms worsen. You may need a referral to see hospice care for pain control. Antoine Smith MD Sep 19, 2018 22:34
[2018-09-19] MEDS ORDERED: DURAGESIC1 EAC3 TDERMAL (23:13)
[2018-09-20 00:01] VITALS: BP 112/60
--- NOTE | 2018-09-20 00:01 | NUR ---
ER DISCHARGE NOTE: Patient is cleared to be discharged per ERMD, pt is aox4, on room air, with stable vital signs. pt was given dc and prescription instructions, pt was able to verbalize understanding, pt id band removed without complications. pt took all belongings. patient was [facility] ([id number]) and left via gurney.
== END 2018-09-20 00:01 ==
LOC: EDBD 22:04 → EMR 22:30
DX: G89.3 Neoplasm related pain (acute) (chronic) (principal); C79.51 Secondary malignant neoplasm of bone; C79.31 Secondary malignant neoplasm of brain; Z85.3 Personal history of malignant neoplasm of breast; G81.91 Hemiplegia, unspecified affecting right dominant side
CPT/HCPCS: 96361; 96374; 96375; 99284; J1170; J2405